=== PATIENT | male | born 1950 | race Caucasian/White ===

== ENCOUNTER → 2016-04-27 | Outpatient (CLI) | payer MEDICARE, BC ==
[2016-04-27 10:15] LABS: ALBUMIN 3.7 GM/DL (3.2-5.2); ALBUMIN/GLOBULIN RATIO 1.09 (1.00-1.93); BILIRUBIN,TOTAL 0.5 MG/DL (0.2-1.0); CALCIUM LEVEL 9.4 MG/DL (8.8-10.2); CREATININE FOR GFR 1.35 MG/DL (0.70-1.30); GLOMERULAR FILTRATION RATE 56.1 (>49); TOTAL PROTEIN 7.1 GM/DL (6.4-8.2)
== END ==
LOC: M WUC 08:09
PROVIDERS: ATTEND Family Medicine
DX: E11.9 Type 2 diabetes mellitus without complications (principal); E78.2 Mixed hyperlipidemia

== ENCOUNTER → 2016-07-07 | Outpatient (CLI) | payer MEDICARE, BC ==
[~2016-07-07] MED LIST: E-Z PAQUE 60% w/v SUSP 355ML BOTTLE As Ordered ONE; E-Z-GAS II EFFERVESCENT PACKET (SODIUM BICARB./CITRIC ACID/SIMETHICONE) As Ordered ONE; E-Z-HD 98% w/w 340GM SUSP BTL As Ordered ONE
--- NOTE | 2016-07-07 15:37 | REP ---
ESOPHAGRAM: The procedure was performed under the direct supervision of Dr. Arellano. The images were reviewed with Dr. Arellano. A single view PA chest x-ray is submitted as a associate material handler film. There is no change compared to a previous chest x-ray performed on 08/25/2013. Liquid barium and gas-producing granules were given in the erect position as well as liquid barium in the prone oblique position in order to perform a double contrast esophagram examination. The oral and pharyngeal stages of deglutition are unremarkable. 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 During esophageal transport there are tertiary waves demonstrated. There is no esophagitis, stricture, mucosal ring or hiatal hernia. Gastroesophageal reflux is not demonstrated on this examination. Note is made of two duodenal diverticula identified. IMPRESSION: 1. 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 2. Esophageal dysmotility. 3. Note is made of two duodenal diverticula. 1 minute and 2 seconds of fluoroscopy time was utilized for this procedure. Reviewed by MAYO Jesus 07/07/2016 03:39 PEdited and Signed by Preet Arellano MD 07/07/2016 06:13 P
== END ==
LOC: M RAD 09:43
PROVIDERS: ATTEND Otolaryngology
DX: K21.9 Gastro-esophageal reflux disease without esophagitis (principal)

== ENCOUNTER → 2016-10-05 | Outpatient (REF) | payer MEDICARE, BC ==
[2016-10-05 20:42] LABS: CALCIUM LEVEL 9.3 MG/DL (8.8-10.2); CREATININE FOR GFR 1.58 MG/DL (0.70-1.30); GLOMERULAR FILTRATION RATE 46.7 (>49); POTASSIUM SERUM 3.5 MEQ/L (3.5-5.1)
== END ==
LOC: M LABWUC 17:16
PROVIDERS: ATTEND Nurse Practitioner Family
DX: I11.9 Hypertensive heart disease without heart failure (principal)

== ENCOUNTER → 2016-10-27 | Outpatient (CLI) | payer MEDICARE, BC ==
[~2016-10-27] MED LIST changes: +ASPI1TAB PO; +AZEL0.1S3; +CELE20TA PO; +CINN500T PO; +CORE12.5 PO; -E-Z PAQUE 60% w/v SUSP 355ML BOTTLE As Ordered ONE; -E-Z-GAS II EFFERVESCENT PACKET (SODIUM BICARB./CITRIC ACID/SIMETHICONE) As Ordered ONE; -E-Z-HD 98% w/w 340GM SUSP BTL As Ordered ONE; +FLON50SP; +GLUC1000 PO; +INDA125TA PO; +INSULANT SC; +LORA10TA2 PO; +LOTE10TA11 PO; +MULT1TAB10 PO; +PRIL20CA9 PO; +PROS5TAB PO
[2016-10-27 09:30] LABS: MEAN CORPUSCULAR HEMOGLOBIN 27.4 pg (27.0-33.0); MEAN CORPUSCULAR HGB CONC 33.5 g/dl (32.0-36.5); RED CELL DISTRIBUTION WIDTH 13.8 % (11.5-14.5); WHITE BLOOD COUNT 6.8 K/mm3 (4.0-10.0)
[2016-10-27 09:42] LABS: ALBUMIN 3.5 GM/DL (3.2-5.2); ALBUMIN/GLOBULIN RATIO 1.06 (1.00-1.93); BILIRUBIN,TOTAL 0.4 MG/DL (0.2-1.0); CALCIUM LEVEL 9.1 MG/DL (8.8-10.2); CREATININE FOR GFR 1.43 MG/DL (0.70-1.30); GLOMERULAR FILTRATION RATE 52.4 (>49); POTASSIUM SERUM 3.7 MEQ/L (3.5-5.1); TOTAL PROTEIN 6.8 GM/DL (6.4-8.2)
== END ==
LOC: M WUC 08:03
PROVIDERS: ATTEND Family Medicine
DX: Z00.00 Encounter for general adult medical examination without abnormal findings (principal); F32.9 Major depressive disorder, single episode, unspecified; I11.9 Hypertensive heart disease without heart failure; E11.9 Type 2 diabetes mellitus without complications
CPT/HCPCS: 36415; 80053; 82043; 83036; 85027; G0103

== ENCOUNTER → 2016-11-11 | Outpatient (REF) | payer MEDICARE, BC ==
[2016-11-11 19:34] LABS: CALCIUM OXALATE CRYSTALS SMALL
== END ==
LOC: M SMT 17:01
PROVIDERS: ATTEND Urology
DX: N20.0 Calculus of kidney (principal)

== ENCOUNTER → 2016-11-16 | Outpatient (CLI) | payer MEDICARE, BC ==
[2016-11-16 18:01] LABS: FERRITIN 14 NG/ML (26-388); PERCENT SATURATION 12.3 % (19.7-37.4); TOTAL IRON BINDING CAPACITY 415 UG/DL (250-450)
[2016-11-16 18:12] LABS: FOLATE > 24.0 NG/ML (>5.4); VITAMIN B12 LEVEL 480 PG/ML (247-911)
[2016-11-16 18:52] LABS: RETIC HEMOGLOBIN CONTENT CHr 29.6 PG (24-36); RETICULOCYTE % 1.9 % (0.5-1.5)
[2016-11-19 00:07] LABS: FREE KAPPA LIGHT CHAINS SERUM 27.6 mg/L (3.3-19.4); FREE LAMBDA LIGHT CHAINS SERUM 16.4 mg/L (5.7-26.3); KAPPA/LAMBDA RATIO SERUM 1.68 (0.26-1.65)
== END ==
LOC: M WUC 10:48
PROVIDERS: ATTEND Family Medicine
DX: D64.9 Anemia, unspecified (principal)
CPT/HCPCS: 36415; 82607; 82728; 82746; 83550; 83883; 85046; G0463

== ENCOUNTER → 2016-11-16 | Outpatient (REF) | payer MEDICARE, BC | LOC: M SFHCPLAZ 10:10 | PROVIDERS: ATTEND Family Medicine | DX: D64.9 Anemia, unspecified (principal); Z53.8 Procedure and treatment not carried out for other reasons ==

== ENCOUNTER 2016-12-06 09:59 | Day surgery (SDC) | payer MEDICARE, BC ==
[~2016-12-06] VITALS: Ht 167.6 cm; Wt 88.0 kg
[~2016-12-06 09:59] MED LIST changes: +ACETAMINOPHEN 325 MG TAB PO PRN; +BSS with VANC/TOB/EPI for EYE CASES IR ONE; +CYCLOPENTOLATE 2% OPHTH SOLN 2ML BTL OD ONE; +HEALON DUET (HEALON 10MG/ML 0.55ML & HEALON ENDOCOAT 30MG/ML 0.85ML) As Ordered ONE; +LIDOCAINE 1% SDV 5 ML VIAL As Ordered ONE; +LIDOCAINE 3.5 % 1ML OPHTH TOPICAL GEL OU ONE; +MIDAZOLAM INJ 2 MG/2 ML VIAL (J2250) As Ordered ONE; +MOXIFLOXACIN IN BSS 0.25MG/0.25ML INTRACAMERAL INJ (OR EYE ONLY)(J2280) As Ordered ONE; +OFLOXACIN 0.3 % (OCUFLOX) OPTH SOL 5ML OD ONE; +PHENYLEPHRINE 2.5% OPHTH SOL 2ML OD ONE; +POVIDONE-IODINE 5% OPHTH PREP SOL 30ML As Ordered ONE; +PROPARACAINE 0.5% OPHTH SOL 15ML OD PRN; +TRIAMCINOLONE PRES FR 40 MG/ML 1ML(TRIESENCE)(OR EYE ONLY)(J3300 PER 1MG) As Ordered ONE; +TROPICAMIDE 1% OPHTH SOLN 2ML OD ONE
[2016-12-06] MEDS ORDERED: D5W/0.2% SODIUM CHLORIDE 250 ML IV ONE (10:15)
[2016-12-06 13:19] VITALS: BP 142/76
[2016-12-06] MEDS ORDERED: KETOROLAC 0.5% OPHTH SOLN OD ONE (13:30)
[2016-12-06] MEDS ORDERED: AcetaZOLAMIDE 500 MG ER CAP PO ONE (13:30)
[2016-12-06] MEDS ORDERED: TRIMETHOBENZAMIDE 300 MG CAP PO PRN (13:30)
[2016-12-06] MEDS ORDERED: fentaNYL 100 MCG/2 ML INJECTION (J3010) As Ordered ONE (13:34)
== END 2016-12-06 13:35 | disposition home or self-care (01) ==
LOC: M SDC 09:59
PROVIDERS: ATTEND Ophthalmology
DX: H26.9 Unspecified cataract (principal); H40.9 Unspecified glaucoma; I13.2 Hypertensive heart and chronic kidney disease with heart failure and with stage 5 chronic kidney disease, or end stage renal disease; R01.1 Cardiac murmur, unspecified; E11.22 Type 2 diabetes mellitus with diabetic chronic kidney disease; E78.2 Mixed hyperlipidemia; N40.0 Benign prostatic hyperplasia without lower urinary tract symptoms; J30.9 Allergic rhinitis, unspecified; F32.9 Major depressive disorder, single episode, unspecified; G47.33 Obstructive sleep apnea (adult) (pediatric); E88.81 Metabolic syndrome and other insulin resistance; R97.20 Elevated prostate specific antigen [PSA]; D64.9 Anemia, unspecified; N18.3 Chronic kidney disease, stage 3 (moderate); I35.1 Nonrheumatic aortic (valve) insufficiency; K21.9 Gastro-esophageal reflux disease without esophagitis; M12.9 Arthropathy, unspecified; M54.9 Dorsalgia, unspecified; R06.83 Snoring; Z88.1 Allergy status to other antibiotic agents; Z88.8 Allergy status to other drugs, medicaments and biological substances; Z79.899 Other long term (current) drug therapy; Z79.82 Long term (current) use of aspirin; Z79.4 Long term (current) use of insulin; Z79.84 Long term (current) use of oral hypoglycemic drugs; Z87.442 Personal history of urinary calculi; Z85.828 Personal history of other malignant neoplasm of skin; Z87.891 Personal history of nicotine dependence
CPT/HCPCS: 66984; J2250; J2280; J3010; J3300; V2632

== ENCOUNTER 2016-12-20 13:00 | Outpatient (CLI) | payer MEDICARE, BC ==
[~2016-12-20] VITALS: Ht 170.2 cm; Wt 84.8 kg
[~2016-12-20 13:00] MED LIST changes: -ACETAMINOPHEN 325 MG TAB PO PRN; -BSS with VANC/TOB/EPI for EYE CASES IR ONE; -CYCLOPENTOLATE 2% OPHTH SOLN 2ML BTL OD ONE; -HEALON DUET (HEALON 10MG/ML 0.55ML & HEALON ENDOCOAT 30MG/ML 0.85ML) As Ordered ONE; -LIDOCAINE 1% SDV 5 ML VIAL As Ordered ONE; -LIDOCAINE 3.5 % 1ML OPHTH TOPICAL GEL OU ONE; -MIDAZOLAM INJ 2 MG/2 ML VIAL (J2250) As Ordered ONE; -MOXIFLOXACIN IN BSS 0.25MG/0.25ML INTRACAMERAL INJ (OR EYE ONLY)(J2280) As Ordered ONE; -OFLOXACIN 0.3 % (OCUFLOX) OPTH SOL 5ML OD ONE; -PHENYLEPHRINE 2.5% OPHTH SOL 2ML OD ONE; -POVIDONE-IODINE 5% OPHTH PREP SOL 30ML As Ordered ONE; -PROPARACAINE 0.5% OPHTH SOL 15ML OD PRN; -TRIAMCINOLONE PRES FR 40 MG/ML 1ML(TRIESENCE)(OR EYE ONLY)(J3300 PER 1MG) As Ordered ONE; -TROPICAMIDE 1% OPHTH SOLN 2ML OD ONE
[2016-12-20] MEDS ORDERED: NS 1,000 ML IV ONE (13:30)
[2016-12-20] MEDS ORDERED: LIDOCAINE 2% INJ 100 MG/5 ML SDV (FOR ANES.) As Ordered ONE (13:50)
[2016-12-20] MEDS ORDERED: PROPOFOL 200 MG/20 ML VIAL As Ordered ONE (13:50)
--- NOTE | 2016-12-20 14:36 | ROOR ---
Patient Name: Giles Cai Procedure Date: 12/20/2016 2:18 PM Date of : 1950 Age: 66 Room: [facility] Gender: Male Note Status: Finalized Procedure: Upper GI endoscopy Indications: Epigastric abdominal pain, Iron deficiency anemia, Weight loss Providers: Jayson Mcdermott MD Referring MD: Vincent Chan MD Requesting Provider: Medicines: Monitored Anesthesia Care Complications: No immediate complications. Procedure: Pre-Anesthesia Assessment: - The heart rate, respiratory rate, oxygen saturations, blood pressure, adequacy of pulmonary ventilation, and response to care were monitored throughout the procedure. The Endoscope was introduced through the mouth, and advanced to the second part of duodenum. The upper GI endoscopy was accomplished without difficulty. The patient tolerated the procedure well. Findings: The Z-line was regular and was found 40 cm from the incisors. A small hiatal hernia was present. A large amount of food (residue) was found in the entire examined stomach. Food (residue) was found in the first portion of the duodenum. The exam was otherwise without abnormality. Impression: - Z-line regular, 40 cm from the incisors. - Small hiatal hernia. - A large amount of food (residue) in the stomach. - Retained food in the duodenum. - The examination was otherwise normal. - No specimens collected. - The examination was otherwise normal. Recommendation: - Patient has a contact number available for emergencies. The signs and symptoms of potential delayed complications were discussed with the patient. Return to normal activities tomorrow. Written discharge instructions were provided to the patient. - Resume previous diet. - Discharge patient to home. - Follow an antireflux regimen. - Continue present medications. - Return to referring physician. - The findings and recommendations were discussed with the patient's family. Jayson Mcdermott MD Jayson Mcdermott MD 12/20/2016 2:35:40 PM This report has been signed electronically. Number of Addenda: 0 Note Initiated On: 12/20/2016 2:18 PM Estimated Blood Loss: Estimated blood loss: none.
[2016-12-20 14:55] VITALS: BP 156/77
== END 2016-12-20 15:15 | disposition home or self-care (01) ==
LOC: M OPP 13:00
PROVIDERS: ATTEND Internal Medicine Gastroenterology
DX: R10.13 Epigastric pain (principal); D50.9 Iron deficiency anemia, unspecified; R63.4 Abnormal weight loss; K44.9 Diaphragmatic hernia without obstruction or gangrene; I71.4 Abdominal aortic aneurysm, without rupture; I10 Essential (primary) hypertension; E78.5 Hyperlipidemia, unspecified; R01.1 Cardiac murmur, unspecified; E10.9 Type 1 diabetes mellitus without complications; R12 Heartburn; M19.90 Unspecified osteoarthritis, unspecified site; M51.9 Unspecified thoracic, thoracolumbar and lumbosacral intervertebral disc disorder; F32.9 Major depressive disorder, single episode, unspecified; G47.30 Sleep apnea, unspecified; Z96.7 Presence of other bone and tendon implants; Z87.442 Personal history of urinary calculi; Z87.891 Personal history of nicotine dependence; Z88.8 Allergy status to other drugs, medicaments and biological substances; Z79.82 Long term (current) use of aspirin; Z79.899 Other long term (current) drug therapy; Z80.8 Family history of malignant neoplasm of other organs or systems

== ENCOUNTER → 2016-12-25 | Outpatient (CLI) | payer MEDICARE, BC ==
[2016-12-25 19:04] LABS: MEAN CORPUSCULAR HGB CONC 33.3 g/dl (32.0-36.5); MEAN CORPUSCULAR VOLUME 84.1 fl (80.0-96.0); RED CELL DISTRIBUTION WIDTH 15.5 % (11.5-14.5); RETIC HEMOGLOBIN CONTENT CHr 30.6 PG (24-36); RETICULOCYTE % 2.3 % (0.5-1.5); WHITE BLOOD COUNT 5.2 K/mm3 (4.0-10.0)
[2016-12-25 20:04] LABS: FERRITIN 18 NG/ML (26-388); PERCENT SATURATION 24.2 % (19.7-50.0); TOTAL IRON BINDING CAPACITY 425 UG/DL (250-450); TOTAL PROTEIN 6.7 GM/DL (6.4-8.2)
[2016-12-28 11:20] LABS: ALBUMIN 3.97 GM/DL (3.29-5.55); ALBUMIN % 59.2 % (55.8-66.1); GAMMA GLOBULIN % 11.6 % (11.1-18.8)
[2016-12-31 00:06] LABS: FREE KAPPA LIGHT CHAINS SERUM 24.6 mg/L (3.3-19.4); FREE LAMBDA LIGHT CHAINS SERUM 15.7 mg/L (5.7-26.3); KAPPA/LAMBDA RATIO SERUM 1.57 (0.26-1.65)
== END ==
LOC: M WUC 08:03
PROVIDERS: ATTEND Family Medicine
DX: D50.8 Other iron deficiency anemias (principal); D89.2 Hypergammaglobulinemia, unspecified

== ENCOUNTER → 2017-01-06 | Outpatient (CLI) | payer MEDICARE, BC ==
--- NOTE | 2017-01-06 11:24 | REP ---
GASTRIC EMPTYING STUDY: 01/06/2017. CLINICAL HISTORY: Gastroparesis. Recent endoscopy with food residue in the stomach after 8.5 hour fast. Type 2 diabetes. TECHNIQUE: The patient received 1.1 mCi technetium 99m sulfur colloid in two scrambled eggs with 6 ounces of water. Anterior and posterior sequential 2-minute images for 90 minutes were performed. Region of interest drawn around the stomach and gastric emptying calculated by a semi-automated method. FINDINGS: The anterior and posterior images show no evidence of gastroesophageal reflux. Activity is seen extending into the duodenum and jejunum during the course of the examination. There is some washout of activity from the stomach demonstrated. The gastric emptying at 90 minutes is 52%. The normal t-1/2 for emptying is 90 minutes. No other finding. IMPRESSION: 1. Normal gastric emptying with 52% emptying at 90 minutes, which is normal. Signed by Kali Bhagat MD 01/06/2017 02:58 P
== END ==
LOC: M RAD 09:04
PROVIDERS: ATTEND Family Medicine
DX: K31.84 Gastroparesis (principal)
CPT/HCPCS: 78264; A9541

== ENCOUNTER → 2017-04-01 | Outpatient (CLI) | payer MEDICARE, BC ==
[2017-04-01 08:59] LABS: MEAN CORPUSCULAR HGB CONC 33.9 g/dl (32.0-36.5); MEAN CORPUSCULAR VOLUME 85.5 fl (80.0-96.0); PLATELET COUNT, AUTOMATED 245 10^3/uL (150-450); RED CELL DISTRIBUTION WIDTH 13.6 % (11.5-14.5); RETIC HEMOGLOBIN EQUIVALENT 32.5 pg (24-36); RETICULOCYTE % 1.4 % (0.5-1.5); WHITE BLOOD COUNT 5.8 10^3/uL (4.0-10.0)
[2017-04-01 09:23] LABS: ALBUMIN 3.7 GM/DL (3.2-5.2); ALBUMIN/GLOBULIN RATIO 1.19 (1.00-1.93); BILIRUBIN,TOTAL 0.5 MG/DL (0.2-1.0); CALCIUM LEVEL 9.2 MG/DL (8.8-10.2); CREATININE FOR GFR 1.55 MG/DL (0.70-1.30); GLOMERULAR FILTRATION RATE 47.7 (>49); POTASSIUM SERUM 3.7 MEQ/L (3.5-5.1); TOTAL PROTEIN 6.8 GM/DL (6.4-8.2)
== END ==
LOC: M WUC 08:04
PROVIDERS: ATTEND Family Medicine
DX: D50.8 Other iron deficiency anemias (principal); E11.43 Type 2 diabetes mellitus with diabetic autonomic (poly)neuropathy

== ENCOUNTER → 2017-06-15 | Outpatient (CLI) | payer MEDICARE, BC | LOC: M WUC 09:32 | DX: M25.531 Pain in right wrist (principal) | CPT/HCPCS: 73110 ==

== ENCOUNTER → 2017-07-20 | Outpatient (CLI) | payer MEDICARE, BC ==
[2017-07-20 10:49] LABS: IONIZED CALCIUM 4.7 MG/DL (4.5-5.3)
[2017-07-20 11:20] LABS: MAGNESIUM LEVEL 1.7 MG/DL (1.8-2.4)
== END ==
LOC: M WUC 10:01
DX: Z48.02 Encounter for removal of sutures (principal)
CPT/HCPCS: 83735

== ENCOUNTER → 2017-09-07 | Outpatient (REF) | payer MEDICARE, BC | LOC: M SFHCLERA 20:21 | DX: L73.9 Follicular disorder, unspecified (principal) | CPT/HCPCS: 87070; 87077; 87186 ==

== ENCOUNTER → 2017-09-14 | Outpatient (CLI) | payer MEDICARE, BC ==
[2017-09-14 12:32] LABS: PLATELET COUNT, AUTOMATED 242 10^3/uL (150-450)
[2017-09-14 12:36] LABS: INR 0.94; PROTHROMBIN TIME 12.6 SECONDS (12.4-14.5)
[2017-09-14 12:37] LABS: PARTIAL THROMBOPLASTIN TIME 29.9 SECONDS (26.8-37.9)
== END ==
LOC: M WUC 08:32
DX: Z01.812 Encounter for preprocedural laboratory examination (principal); Z79.01 Long term (current) use of anticoagulants
CPT/HCPCS: 85049

== ENCOUNTER → 2017-10-03 | Outpatient (CLI) | payer MEDICARE, BC ==
[2017-10-03 10:41] LABS: HEMATOCRIT 38.5 % (42.0-52.0); HEMOGLOBIN 13.1 g/dl (13.5-17.5); MEAN CORPUSCULAR HEMOGLOBIN 29.2 pg (27.0-33.0); MEAN CORPUSCULAR VOLUME 85.9 fl (80.0-96.0); PLATELET COUNT, AUTOMATED 247 10^3/uL (150-450); RED BLOOD COUNT 4.48 10^6/uL (4.30-6.10); RED CELL DISTRIBUTION WIDTH 13.2 % (11.5-14.5); WHITE BLOOD COUNT 6.6 10^3/uL (4.0-10.0)
[2017-10-03 10:52] LABS: PROTHROMBIN TIME 13.3 SECONDS (12.4-14.5)
[2017-10-03 11:07] LABS: ALBUMIN 3.6 GM/DL (3.2-5.2); ALBUMIN/GLOBULIN RATIO 1.24 (1.00-1.93); ALKALINE PHOSPHATASE 71 U/L (45-117); ALT/SGPT 29 U/L (12-78); ANION GAP 6 MEQ/L (8-16); AST/SGOT 17 U/L (7-37); BILIRUBIN,TOTAL 0.5 MG/DL (0.2-1.0); BLOOD UREA NITROGEN 26 MG/DL (7-18); CALCIUM LEVEL 8.9 MG/DL (8.8-10.2); CARBON DIOXIDE LEVEL 29 MEQ/L (21-32); CHLORIDE LEVEL 105 MEQ/L (98-107); CREATININE FOR GFR 1.45 MG/DL (0.70-1.30); GLOMERULAR FILTRATION RATE 51.4 (>49); GLUCOSE, FASTING 133 MG/DL (70-100); POTASSIUM SERUM 4.1 MEQ/L (3.5-5.1); SODIUM LEVEL 140 MEQ/L (136-145); TOTAL PROTEIN 6.5 GM/DL (6.4-8.2)
[2017-10-03 11:18] LABS: ERYTHROCYTE SEDIMENTATION RATE 17 mm/hr (0-20)
== END ==
LOC: M ADMPAT 09:16
DX: M17.11 Unilateral primary osteoarthritis, right knee (principal); Z01.818 Encounter for other preprocedural examination
CPT/HCPCS: 71046

== ENCOUNTER 2017-10-25 11:13 | Inpatient (IN) | payer MEDICARE, BC ==
[2017-10-25] MEDS: CitaloPRAM (CeleXA) 20 MG TAB PO (09:00)
[2017-10-25] MEDS ORDERED: LIDOCAINE 1% MDV 20ML VIAL SQ (11:30)
[2017-10-25] MEDS: LR 1,000 ML IV ×3 (12:19→18:34)
[2017-10-25] MEDS: ACETAMINOPHEN 500 MG TAB PO (12:19)
[2017-10-25 12:23] LABS: GLUCOSE, FASTING 159 MG/DL (70-100)
[2017-10-25 12:31] LABS: BEDSIDE GLUCOSE 149 MG/DL (80-115)
[2017-10-25] MEDS ORDERED: ceFAZolin 1GM INJ (J0690 PER 500MG) As Ordered (12:49)
[2017-10-25] MEDS ORDERED: fentaNYL 100 MCG/2 ML INJECTION (J3010) As Ordered ×2 (13:29→15:09)
[2017-10-25] MEDS ORDERED: MIDAZOLAM INJ 2 MG/2 ML VIAL (J2250) As Ordered ×2 (13:29→15:09)
[2017-10-25] MEDS: fentaNYL 100 MCG/2 ML INJECTION (J3010) IV (13:57)
[2017-10-25] MEDS: MIDAZOLAM INJ 2 MG/2 ML VIAL (J2250) IV (13:58)
[2017-10-25] MEDS ORDERED: dexameTHASONE 10 MG/1 ML VIAL PRES.FREE (J1100) (15:09)
[2017-10-25] MEDS ORDERED: PROPOFOL 200 MG/20 ML VIAL As Ordered ×3 (15:09→16:50)
[2017-10-25] MEDS ORDERED: ROPIvacaine 0.5% 30 ML INJECTION (J2795 PER 1MG) (15:09)
[2017-10-25] MEDS ORDERED: LIDOCAINE 1% MDV 20ML VIAL (15:09)
[2017-10-25] MEDS ORDERED: BUPIVACAINE/DEXTROSE 0.75% 2 ML AMP As Ordered (15:09)
[2017-10-25] MEDS: TRANEXAMIC ACID 100 MG/ML 10ML VIAL As Ordered (15:55)
[2017-10-25] MEDS: EPINEPHrine INJ 1 MG/ML 1ML AMP As Ordered (15:55)
[2017-10-25] MEDS ORDERED: hydrALAZINE INJ 20 MG/ML VIAL As Ordered (16:16)
[2017-10-25] MEDS ORDERED: LABETALOL HCL 100 MG/20 ML VIAL As Ordered (16:23)
[2017-10-25] MEDS: BUPIVACAINE LIPOSOME/PF 1.3% 20 ML VIAL (13.3MG/ML)(EXPAREL) As Ordered (16:23)
[2017-10-25] MEDS: BUPIVACAINE HCL 0.25% 10 ML VIAL As Ordered (16:23)
[2017-10-25] MEDS ORDERED: MORPHINE 1MG/ML IN 0.9% NACL 100ML IV BAG As Ordered ×2 (17:08→17:10)
[2017-10-25 17:21] LABS: BEDSIDE GLUCOSE 138 MG/DL (80-115)
[2017-10-25] MEDS ORDERED: fentaNYL 100 MCG/2 ML INJECTION (J3010) IV (17:30)
[2017-10-25] MEDS ORDERED: ACETAMINOPHEN TAB 650MG DOSE (2X325MG) PO (17:30)
[2017-10-25] MEDS ORDERED: HYDROMORPHONE HCL 0.5 MG/ 0.5 ML SYRINGE (J1170 PER 1) IV (17:30)
[2017-10-25] MEDS ORDERED: PERCOCET 5MG/325MG TAB PO (17:30)
[2017-10-25] MEDS ORDERED: FLEET ENEMA PR (17:30)
[2017-10-25] MEDS ORDERED: ONDANSETRON 4MG/2ML VIAL (J2405) IV ×2 (17:30→18:00)
[2017-10-25] MEDS ORDERED: MORPHINE 1MG/ML IN 0.9% NACL 100ML IV BAG IV (18:00)
[2017-10-25] MEDS ORDERED: NALOXONE INJ 0.4 MG/1 ML VIAL (J2310) IV (18:00)
[2017-10-25] MEDS ORDERED: EPIDURAL/PCA KEYS XX (18:00)
[2017-10-25] MEDS ORDERED: NALBUPHINE HCL 10 MG/ML AMP (J2300) IV (18:00)
[2017-10-25 19:56] LABS: BEDSIDE GLUCOSE 189 MG/DL (80-115)
[2017-10-25] MEDS: LEVEMIR (INSULIN DETEMIR) 1 UNITS/0.01ML SC (20:42)
[2017-10-25] MEDS: BENAZEPRIL 20 MG TAB PO (20:43)
[2017-10-25] MEDS: CARVedilol 12.5 MG TAB PO (20:43)
[2017-10-25] MEDS: diphenhydrAMINE INJ 50MG/ML VIAL (J1200) IV (22:21)
[2017-10-26] MEDS ORDERED: PERCOCET 5MG/325MG TAB PO (06:30)
[2017-10-26] MEDS ORDERED: ONDANSETRON 4 MG TAB (S0181) PO (06:30)
[2017-10-26 07:23] LABS: HEMATOCRIT 40.9 % (42.0-52.0); HEMOGLOBIN 13.8 g/dl (13.5-17.5); MEAN CORPUSCULAR HEMOGLOBIN 29.1 pg (27.0-33.0); MEAN CORPUSCULAR HGB CONC 33.7 g/dl (32.0-36.5); MEAN CORPUSCULAR VOLUME 86.3 fl (80.0-96.0); PLATELET COUNT, AUTOMATED 280 10^3/uL (150-450); RED BLOOD COUNT 4.74 10^6/uL (4.30-6.10); RED CELL DISTRIBUTION WIDTH 13.2 % (11.5-14.5); WHITE BLOOD COUNT 10.9 10^3/uL (4.0-10.0)
[2017-10-26 07:41] LABS: ANION GAP 10 MEQ/L (8-16); BLOOD UREA NITROGEN 24 MG/DL (7-18); CALCIUM LEVEL 8.9 MG/DL (8.8-10.2); CARBON DIOXIDE LEVEL 30 MEQ/L (21-32); CHLORIDE LEVEL 98 MEQ/L (98-107); CREATININE FOR GFR 1.53 MG/DL (0.70-1.30); GLOMERULAR FILTRATION RATE 48.3 (>49); GLUCOSE, FASTING 149 MG/DL (70-100); POTASSIUM SERUM 3.4 MEQ/L (3.5-5.1); SODIUM LEVEL 138 MEQ/L (136-145)
[2017-10-26] MEDS: FINASTERIDE 5 MG TAB PO (09:18)
[2017-10-26] MEDS: diphenhydrAMINE 25 MG CAP PO (09:18)
[2017-10-26] MEDS: CARVedilol 12.5 MG TAB PO (09:18)
[2017-10-26] MEDS: OMEPRAZOLE 20 MG CAP PO (09:18)
[2017-10-26] MEDS: metFORMIN (GLUCOPHAGE) 500 MG TAB PO (09:18)
[2017-10-26] MEDS: TERAZOSIN 5 MG CAP PO (09:19)
[2017-10-26] MEDS: SENOKOT S TAB PO (09:19)
[2017-10-26] MEDS: LORATADINE 10 MG TAB PO (09:19)
[2017-10-26] MEDS: MIRALAX *UNIT DOSE* 17GM PACKET PO (09:20)
[2017-10-26] MEDS: MOM 30ML SUSPENSION UDC PO (09:20)
[2017-10-26] MEDS: BENAZEPRIL 20 MG TAB PO (09:20)
[2017-10-26] MEDS: CitaloPRAM (CeleXA) 20 MG TAB PO (09:20)
[2017-10-26] MEDS: FLUTICASONE PROP 0.05% NASAL SPRAY 16 GM (FLONASE) (09:20)
[2017-10-26] MEDS: PERCOCET 5MG/325MG TAB PO (09:26)
[2017-10-26] MEDS ORDERED: PILL CRUSHER/CUTTER 1 EACH XX (09:30)
[2017-10-26] MEDS ORDERED: RIVAROXABAN 10 MG TAB (XARELTO) PO (18:00)
[2017-10-26] MEDS ORDERED: LEVEMIR (INSULIN DETEMIR) 1 UNITS/0.01ML SC (21:00)
== END 2017-10-26 10:45 | disposition home or self-care (01) | DRG 470 ==
LOC: M OR 11:13 → M MS5PR 17:55
PROVIDERS: Orthopaedic Surgery
PROC: 0SRC0J9 Replacement of Right Knee Joint with Synthetic Substitute, Cemented, Open Approach (ICD-10-PCS; principal; 2017-10-25 15:08)
DX: M17.11 Unilateral primary osteoarthritis, right knee (principal); Z79.82 Long term (current) use of aspirin; Z79.899 Other long term (current) drug therapy; E11.9 Type 2 diabetes mellitus without complications; I12.9 Hypertensive chronic kidney disease with stage 1 through stage 4 chronic kidney disease, or unspecified chronic kidney disease; E78.00 Pure hypercholesterolemia, unspecified; Z87.891 Personal history of nicotine dependence; N18.3 Chronic kidney disease, stage 3 (moderate); G47.33 Obstructive sleep apnea (adult) (pediatric)

== ENCOUNTER → 2018-01-23 | Outpatient (CLI) | payer MEDICARE, BC ==
[2018-01-23 09:54] LABS: ANION GAP 9 MEQ/L (8-16); AST/SGOT 12 U/L (7-37); BLOOD UREA NITROGEN 23 MG/DL (7-18); CALCIUM LEVEL 9.2 MG/DL (8.8-10.2); CARBON DIOXIDE LEVEL 30 MEQ/L (21-32); CHLORIDE LEVEL 104 MEQ/L (98-107); CREATININE FOR GFR 1.29 MG/DL (0.70-1.30); GLOMERULAR FILTRATION RATE 58.8 (>49); GLUCOSE, FASTING 122 MG/DL (70-100); HEMATOCRIT 38.1 % (42.0-52.0); HEMOGLOBIN 12.8 g/dl (13.5-17.5); MEAN CORPUSCULAR HEMOGLOBIN 28.8 pg (27.0-33.0); MEAN CORPUSCULAR HGB CONC 33.6 g/dl (32.0-36.5); MEAN CORPUSCULAR VOLUME 85.6 fl (80.0-96.0); PLATELET COUNT, AUTOMATED 235 10^3/uL (150-450); RED BLOOD COUNT 4.45 10^6/uL (4.30-6.10); RED CELL DISTRIBUTION WIDTH 13.8 % (11.5-14.5); SODIUM LEVEL 143 MEQ/L (136-145); WHITE BLOOD COUNT 6.1 10^3/uL (4.0-10.0)
[2018-01-23 09:55] LABS: ALBUMIN 3.5 GM/DL (3.2-5.2); ALBUMIN/GLOBULIN RATIO 1.21 (1.00-1.93); ALKALINE PHOSPHATASE 75 U/L (45-117); ALT/SGPT 23 U/L (12-78); BILIRUBIN,TOTAL 0.5 MG/DL (0.2-1.0); CHOLESTEROL LEVEL 263 MG/DL (<200); CHOLESTEROL RISK RATIO 5.367 (<5); HDL CHOLESTEROL 49 MG/DL (>40); LDL CHOLESTEROL 173 MG/DL (<100); NON-HDL-C 214 MG/DL; TOTAL PROTEIN 6.4 GM/DL (6.4-8.2); TRIGLYCERIDES LEVEL 203 MG/DL (<150)
[2018-01-23 10:08] LABS: ESTIMATED AVERAGE GLUCOSE 174 MG/DL (60-110); HEMOGLOBIN A1c 7.7 %
[2018-01-23 10:12] LABS: MAU/CREAT RATIO 81.1 MCG/MG (0.0-30.0)
== END ==
LOC: M WUC 08:05
DX: D50.8 Other iron deficiency anemias (principal); E11.9 Type 2 diabetes mellitus without complications; I10 Essential (primary) hypertension; Z79.899 Other long term (current) drug therapy
CPT/HCPCS: 80053

== ENCOUNTER → 2018-02-16 | Outpatient (CLI) | payer MEDICARE, BC | LOC: M SLEEP 19:32 | DX: G47.33 Obstructive sleep apnea (adult) (pediatric) (principal) | CPT/HCPCS: 95811 ==

== ENCOUNTER → 2018-02-23 | Outpatient (CLI) | payer MEDICARE, BC | LOC: M RAD 11:36 | DX: M79.89 Other specified soft tissue disorders (principal); Z79.899 Other long term (current) drug therapy | CPT/HCPCS: 93971 ==

== ENCOUNTER → 2018-02-23 | Outpatient (CLI) | payer MEDICARE, BC ==
[2018-02-23 19:57] LABS: FREE T4 0.75 NG/DL (0.76-1.46)
== END ==
LOC: M WUC 14:04
DX: R61 Generalized hyperhidrosis (principal)
CPT/HCPCS: 84443

== ENCOUNTER → 2018-08-21 | Outpatient (CLI) | payer MEDICARE, BC ==
[~2018-08-21] MED LIST changes: -ASPI1TAB PO; +ASPI81TA26 PO; +INDO25CA PO; +LORA-243 PO; -LORA10TA2 PO; -LOTE10TA11 PO; +LOTE10TA13 PO; +PERC5TAB12 PO; +TERA5CAP3 PO; +XARE10TA PO
[2018-08-21 09:02] LABS: HEMATOCRIT 40.5 % (42.0-52.0); HEMOGLOBIN 13.6 g/dl (13.5-17.5); MEAN CORPUSCULAR HEMOGLOBIN 29.9 pg (27.0-33.0); MEAN CORPUSCULAR HGB CONC 33.6 g/dl (32.0-36.5); PLATELET COUNT, AUTOMATED 225 10^3/uL (150-450); RED BLOOD COUNT 4.55 10^6/uL (4.30-6.10); WHITE BLOOD COUNT 6.2 10^3/uL (4.0-10.0)
[2018-08-21 09:38] LABS: ALBUMIN 3.7 GM/DL (3.2-5.2); BILIRUBIN,TOTAL 0.4 MG/DL (0.2-1.0); CHOLESTEROL RISK RATIO 5.509 (<5); CREATININE FOR GFR 1.4 MG/DL (0.70-1.30); GLOMERULAR FILTRATION RATE 53.3 (>42); POTASSIUM SERUM 3.7 MEQ/L (3.5-5.1); PROSTATIC SPECIFIC AG MONITOR 13.7 NG/ML (< 4.00); TOTAL PROTEIN 6.6 GM/DL (6.4-8.2)
[2018-08-21 10:32] LABS: HEMOGLOBIN A1c 7.5 %
== END ==
LOC: M WUC 08:03
PROVIDERS: ATTEND Family Medicine
DX: N18.3 Chronic kidney disease, stage 3 (moderate) (principal); E11.9 Type 2 diabetes mellitus without complications; D50.8 Other iron deficiency anemias; E78.2 Mixed hyperlipidemia; R97.20 Elevated prostate specific antigen [PSA]

== ENCOUNTER → 2018-08-30 | Outpatient (REF) | payer MEDICARE, BC ==
[2018-08-30 14:27] LABS: AMORPHOUS SEDIMENT SMALL (NEGATIVE); APPEARANCE, URINE TURBID (CLEAR); BACTERIA, URINE AUTO NEGATIVE (NEGATIVE); BILIRUBIN, URINE AUTO NEGATIVE (NEGATIVE); BLOOD, URINE BLOOD NEGATIVE (NEGATIVE); COLOR, URINE AMBER (YELLOW); GLUCOSE, URINE (UA) AUTO NEGATIVE (NEGATIVE); KETONE, URINE AUTO NEGATIVE (NEGATIVE); LEUKOCYTE ESTERASE, URINE AUTO NEGATIVE (NEGATIVE); NITRITE, URINE AUTO NEGATIVE (NEGATIVE); PROTEIN, URINE AUTO NEGATIVE (NEGATIVE); RBC, URINE AUTO 0 /HPF (0-3); SPECIFIC GRAVITY URINE AUTO 1.021 (1.002-1.035); SQUAMOUS EPITHELIAL CELL UR AU 0 /HPF (0-6); UROBILINOGEN, URINE AUTO 0.2 mg/dL (0.0-2.0); WBC, URINE AUTO 2 /HPF (0-3)
== END ==
LOC: M SMT 13:04
PROVIDERS: ATTEND Nurse Practitioner Women's Health
DX: R97.20 Elevated prostate specific antigen [PSA] (principal)
CPT/HCPCS: 81001; 87086; G0463

== ENCOUNTER → 2018-08-30 | Outpatient (CLI) | payer MEDICARE, BC | LOC: M SMT 08:32 | PROVIDERS: ATTEND Nurse Practitioner Women's Health | DX: R97.20 Elevated prostate specific antigen [PSA] (principal) ==

== ENCOUNTER → 2018-09-14 | Outpatient (CLI) | payer MEDICARE, BC ==
[2018-09-14 13:31] LABS: CALCIUM LEVEL 9.9 MG/DL (8.8-10.2); CREATININE FOR GFR 1.48 MG/DL (0.70-1.30)
== END ==
LOC: M WUC 08:32
PROVIDERS: ATTEND Nurse Practitioner Women's Health
DX: R97.20 Elevated prostate specific antigen [PSA] (principal)

== ENCOUNTER → 2018-09-19 | Outpatient (CLI) | payer MEDICARE, BC ==
[~2018-09-19] MED LIST changes: +PROHANCE 279.3MG/ML 5ML VIAL (A9576) As Ordered ONE
--- NOTE | 2018-09-19 14:17 | REP ---
MULTIPARAMETRIC PROSTATE MRI STUDY WITH AND WITHOUT IV GADOLINIUM: HISTORY: Elevated PSA. TECHNIQUE: Using a phased array surface coil, small field of view imaging was acquired using T2-weighted scans in the axial, coronal, and sagittal imaging planes. Small field of view diffusion-weighted sequences are acquired. Small field of view axial T1-weighted scans are acquired dynamically after the intravenous administration of 8 mL of ProHance. Using a large field of view, the entire pelvis to the level of the aortic bifurcation was imaged using precontrast axial T1 and postcontrast axial T1 fat-saturation images. The visualized osseous structures of the pelvis demonstrate no evidence of suspicious bone lesion. There is no adenopathy in the pelvis. Seminal vesicles appear fairly symmetrical and unremarkable. Prostate measures 5.4 x 4.2 x 4.1 cm for a total volume of 47.08 mL. Three regions of interest are identified in the prostate for MR ultrasound fusion-guided biopsy. First in the right mid anterolateral peripheral zone and mid posterior transitional zone, there is an area which is predominantly low signal on T2-weighted and DWI images. There are areas of type 3 enhancement internally. The area measures 1.0 x 0.5 x 1.0 cm for a total volume of 1.05 mL. Overall level of suspicion is 3/0 with clinically significant cancer equivocal. Next, in the mid anterior stroma, bilateral mid anterior transitional zone and bilateral apical anterior transitional zone, there is an oval area of somewhat ill-defined T2 decreased signal, also decreased signal on DWI images. There is predominantly type 2 enhancement within this region. The area measures 2.9 x 1.3 x 2.1 cm for a total volume of 4.67 mL. Overall level of suspicion is 4/5 with clinically significant cancer likely to be present. Finally, in the left base anterolateral and posterior peripheral zone as well as transitional zone, and in the left mid posterior peripheral zone, there is an area, which is predominantly low signal on T2 and DWI images. There are areas of type 1 and type 2 enhancement within this region. The area measures 3.2 x 1.4 x 2.8 cm for a total volume of 5.35 mL. Overall level of suspicion is 3/5 with clinically significant cancer equivocal. IMPRESSION: There are three regions of interest identified in the prostate for MR ultrasound fusion-guided prostate biopsy. Electronically Signed by Craig Mathew MD 09/19/2018 04:17 P
== END ==
LOC: M RAD 10:03
PROVIDERS: ATTEND Nurse Practitioner Women's Health
DX: R97.20 Elevated prostate specific antigen [PSA] (principal)
CPT/HCPCS: 72197; A9576

== ENCOUNTER → 2018-10-03 | Outpatient (CLI) | payer MEDICARE, BC ==
[~2018-10-03] MED LIST changes: -PROHANCE 279.3MG/ML 5ML VIAL (A9576) As Ordered ONE
--- NOTE | 2018-10-03 16:33 | REP ---
Prostate sonography: History: Elevated PSA. Positive prostate MRI study. Sonographic findings: Transrectal sonographic guidance is provided to Dr. Plascencia who performed trans rectal ultrasound guided needle biopsy procedure . Electronically Signed by Preet Arellano MD 10/03/2018 04:24 P
== END ==
LOC: M SMT PRO 08:42
PROVIDERS: ATTEND Urology
DX: C61 Malignant neoplasm of prostate (principal)
CPT/HCPCS: 55700; 76942; G0416

== ENCOUNTER → 2018-10-11 | Outpatient (CLI) | payer MEDICARE, BC ==
--- NOTE | 2018-10-11 17:27 | REP ---
REASON: History of carcinoma of the prostate gland. COMPARISON: None. After the intravenous administration of 21.9 millicuries of technetium 99M MDP, A total body bone scan was obtained. There is a focus of increased radionuclide accumulation seen in the region of the acromioclavicular joint of the left shoulder. Increased radionuclide accumulation is seen in the wrists, knees, and feet. There is a photopenic defect seen in the right knee consistent with previous prosthesis placement. Degenerative type uptake is seen in the L1 region and T9 region. IMPRESSION:Degenerative type uptake patterns as described above. Plain film correlation of the degenerative type uptake seen in the spine is recommended. There is no compelling evidence for metastatic disease. Electronically Signed by Dieter Hagen DO 10/12/2018 12:24 P
== END ==
LOC: M RAD 09:43
PROVIDERS: ATTEND Urology
DX: C61 Malignant neoplasm of prostate (principal)
CPT/HCPCS: 78306; A9503

== ENCOUNTER → 2018-10-31 | Outpatient (CLI) | payer MEDICARE, BC ==
--- NOTE | 2018-11-01 11:52 | RADONC ---
RADIATION ONCOLOGY CONSULTATION NOTE DATE: 10/31/2018 CHART NUMBER: [id number] DIAGNOSIS: Prostate cancer. STAGE: Stage II C, [id number], PSA 13.7, Gackle score 8 (4+4), grade group 4. ECOG PERFORMANCE STATUS: 0. CONSULTATION NOTE: Mr. Cai is a very pleasant 68-year-old white male with the diagnosis of what appears to be a stage II C, [id number], poorly differentiated Abhishek score 8 (4+4) adenocarcinoma of prostate with a PSA level of 13.7 who is presenting to us today status post initiation of androgen deprivation therapy for consideration of definitive external beam radiation therapy with IMRT / IGRT. HISTORY OF PRESENT ILLNESS: The patient was in his usual state of health and was found to have an elevated PSA level, which was noted to be 13.7 on 08/21/2018. On 10/03/2018, the patient underwent prostatic needle biopsy and pathology revealed a Abhishek score 8 (4+4) adenocarcinoma of the prostate involving the right side of his prostate. All biopsies of the left side failed to reveal malignancy. A bone scan was undertaken on 10/11/2018 and showed no evidence of metastatic disease. An MRI of the pelvis was done on 09/19/2018 and showed no evidence of metastatic disease either. The patient has decided he wishes to undergo definitive external beam radiation therapy with IMRT and is here to discuss the benefits, as well as drawbacks of his various treatment options. PAST MEDICAL HISTORY: The patient's past medical history is positive for depression, diabetes, hypertension, osteoarthritis, skin cancer, sleep apnea requiring C-PAP and a thoracic aortic aneurysm. In the past, he has had cataract surgeries, as well as coccyx surgery. He has the right second and third finger proximal joint replacement. He has had rotator cuff surgery and right inguinal hernia repair three times, as well as right knee arthroplasty. ALLERGIES: The patient is allergic to STATINS. SOCIAL HISTORY: The patient has quit smoking for 37 years. He had smoked one and a half packs of cigarettes per day for 12 years. He drinks alcoholic beverages socially. FAMILY HISTORY: The patient's family history is positive for a mother who of pancreatic cancer. REVIEW OF SYSTEMS The patient's review of systems is noncontributory. Denies nausea, vomiting, fevers, chills, night sweats, diplopia, headaches, anxiety or depression, anorexia, weight loss, visual disturbances, chest pain, urinary or bowel difficulties, bone pain, or neurological problems. PHYSICAL EXAMINATION: The patient is a well-developed, well-nourished male in no acute distress. HEENT exam is normocephalic, atraumatic. Extraocular movements are intact. There is no palpable cervical, supraclavicular, infraclavicular, axillary, or inguinal lymphadenopathy present. Lungs are clear to auscultation and percussion. Heart has a regular rate and rhythm. Abdomen is benign with no hepatosplenomegaly, masses, or tenderness. Rectal examination reveals a normal anal sphincter tone. His prostate is smooth with no evidence of nodularity. Skeletal examination reveals no tenderness to pressure or percussion of the bony skeleton. Extremities reveal no clubbing, cyanosis, or edema. Neurologic exam is grossly intact, as is the remainder of the physical examination. MEDICAL NECESSITY: IMRT/IGRT is clinically indicated for the highly conformal dose planning required. The target volume is in close proximity to critical structures, such as the rectum, bladder, small bowel, and femoral heads. The volume of interest must be covered with narrow margins to adequately protect immediately adjacent structures. The plan requires interpretation of complex testing such as CT localization. As noted above, special planning (IMRT) and localizing (IGRT) is required and essential to maximally protect sensitive normal tissue structures which cannot be accomplished using conventional 3-dimensional planning. ASSESSMENT: Clearly, the patient is a candidate for external beam radiation therapy, and I have so informed him. I have discussed with the patient in detail the potential benefits, as well as possible acute and chronic sequelae of external beam radiation therapy. We have discussed logistics of treatment planning, simulation and subsequent fractionated daily radiation treatments. The patient is scheduled for placement of his fiducial markers on November 07, and we will be scheduling him for external beam radiation therapy treatment planning subsequently. I also discussed with the patient his therapeutic options, including surgery, but the patient has decided on radiation and therefore we will proceed with this plan. cc: MD Vincent Rowland MD
== END ==
LOC: M ONCR 13:46
PROVIDERS: ATTEND Radiology Radiation Oncology
DX: C61 Malignant neoplasm of prostate (principal)

== ENCOUNTER → 2018-11-07 | Outpatient (CLI) | payer MEDICARE, BC ==
--- NOTE | 2018-11-07 14:11 | REP ---
TRANSRECTAL ULTRASOUND GUIDANCE FOR FIDUCIARY MARKER PLACEMENT: Real-time ultrasound evaluation of the prostate performed utilizing transrectal probe, for guidance to place three fiduciary markers, one in the right base, one in the left base and one in the apex midline. Procedure was performed by Dr. Plascencia. Electronically Signed by Craig Mathew MD 11/07/2018 06:46 P
== END ==
LOC: M SMT 10:07
PROVIDERS: ATTEND Urology
DX: C61 Malignant neoplasm of prostate (principal)
CPT/HCPCS: 55876; 76872; 76942; A4648

== ENCOUNTER 2018-12-22 08:46 | Outpatient (RCR) | payer MEDICARE, BC ==
[2018-11-28 14:53] LABS: HEMATOCRIT 39.5 % (42.0-52.0); HEMOGLOBIN 13.4 g/dl (13.5-17.5); LYMPH % 31.9 % (24.0-44.0); MEAN CORPUSCULAR HEMOGLOBIN 31.7 pg (27.0-33.0); MEAN CORPUSCULAR HGB CONC 33.9 g/dl (32.0-36.5); MEAN CORPUSCULAR VOLUME 93.4 fl (80.0-96.0); NEUTROPHILS # 4.6 10^3/uL (1.8-7.7); NEUTROPHILS % 57.9 % (36.0-66.0); RED BLOOD COUNT 4.23 10^6/uL (4.30-6.10)
--- NOTE | 2018-11-29 13:06 | RADONC ---
RADIATION ONCOLOGY SIMULATION NOTE DATE OF SERVICE: 11/28/2018 CHART NUMBER: [id number] DIAGNOSIS: Prostate cancer. SIMULATION NOTE: Mr. Cai was simulated today for his upcoming treatment for his prostate cancer. He was placed in a supine position, and immobilization devices were constructed to ensure minimal patient movement, thereby allowing for more accurate IMRT/IGRT treatments. He tolerated the immobilization device construction well with no significant untoward side effects. Thereafter, 3 mm images were obtained through the pelvis with our CT simulator. I was there during the entire simulation process. The patient will be contoured both the planned treatment volume and normal surrounding structures in order to perform the optimum IMRT plan possible. Again, the entire process was tolerated quite well by the patient without any untoward side effects. MTDD
--- NOTE | 2018-12-13 14:54 | RADONC ---
RADIATION ONCOLOGY PROGRESS NOTE DATE: 12/11/2018 CHART NUMBER: [id number] PROGRESS NOTE: Mr. Cai underwent his first fraction of radiation today to his prostate for a dose of 180 cGy. It was tolerated without difficulty or discomfort. REVIEW OF SYSTEMS: The patient's review of systems is noncontributory. Denies nausea, vomiting, fevers, chills, night sweats, diplopia, headaches, anxiety or depression, anorexia, weight loss, visual disturbances, chest pain, urinary or bowel difficulties, bone pain, or neurological problems. PHYSICAL EXAMINATION: The patient's skin is in good condition clearly with no evidence of radiation changes. This is first fraction of treatment. The remainder of his physical exam remains unchanged as well. Mr. Cai tolerated his first treatment quite well and radiation will continue as scheduled.
--- NOTE | 2018-12-20 06:16 | RADONC ---
RADIATION ONCOLOGY PROGRESS NOTE DATE: 12/18/2018 CHART #: [id number] Mr. Cai is presently at a dose of 1080 cGy to his prostate and is tolerating treatments quite well at this point with no complaints related to his radiation therapy. He is having no urinary or bowel difficulties and no bone pain. REVIEW OF SYSTEMS: The patient's review of systems is noncontributory. Denies nausea, vomiting, fevers, chills, night sweats, diplopia, headaches, anxiety or depression, anorexia, weight loss, visual disturbances, chest pain, urinary or bowel difficulties, bone pain, or neurological problems. PHYSICAL EXAMINATION: The patient's skin is in good condition with no evidence of radiation change present. There is no moist or dry desquamation. The remainder of his physical exam remains unchanged. Mr. Cai is tolerating treatments quite well and radiation will continue as scheduled.
[~2018-12-22 08:46] MED LIST changes: +INDO-16 PO; -INDO25CA PO
== END 2018-12-23 ==
LOC: M ONCR 08:46
PROVIDERS: ATTEND Radiology Radiation Oncology
DX: C61 Malignant neoplasm of prostate (principal)

== ENCOUNTER → 2019-01-22 | Outpatient (RCR) | payer MEDICARE, BC ==
--- NOTE | 2018-12-27 08:30 | RADONC ---
RADIATION ONCOLOGY PROGRESS NOTE DATE: 12/26/2018 CHART #: [id number] Mr. Cai with a diagnosis of adenocarcinoma of the prostate is currently at a dose of 1980 cGy of a proposed 7920 cGy. He is tolerating his radiotherapy reasonably well, but he states as of one day ago he started having intermittent diarrhea. REVIEW OF SYSTEMS: He denies any nausea, vomiting, hematuria, dysuria or blood per rectum. His energy level is such that he is able to maintain most day-to-day activities without any alteration of his lifestyle. Skin irritation is denied. He claims that his diarrhea has been spotty and intermittent. It is not actually diarrhea, but just slightly loose stools. EXAMINATION FINDINGS: The skin within the irradiated volume shows no evidence of erythema and certainly no focal desquamation. Lymphatics: No palpable peripheral lymphadenopathy. The remainder of the physical examination is unchanged. IMPRESSION: Tolerating therapy well. PLAN: I have advised him as to a low residue diet and to perhaps consider some very low dosage of Lomotil or Imodium on a p.r.n. basis should he develop further diarrhea. Treatments to continue. MTDD
--- NOTE | 2019-01-01 09:37 | RADONC ---
RADIATION ONCOLOGY PROGRESS NOTE DATE OF SERVICE: 01/01/2019 CHART #: [id number] Mr. Cai with a diagnosis of malignant neoplasm of the prostate stage II C, [id number] is currently receiving local regional radiotherapy via external beam. He is currently at a dose of 2700 cGy of an anticipated 4500 cGy. He is doing quite well and no longer has the blood per rectum and diarrhea. As you recall, last week he was worried about both of those issues, but he was placed on a low residue diet with resolution. He no longer takes any Imodium because he does not have to and he has noted no blood per rectum. His energy level is satisfactory and he is able to maintain most day-to-day activities without any alteration of his lifestyle. The remainder of the review of systems is unchanged. EXAMINATION FINDINGS: The skin within the irradiated volume shows neither erythema nor desquamation. There is no palpable peripheral lymphadenopathy noted in the cervical, supraclavicular, axillary or inguinal lymph node chains. Lungs are clear to auscultation and percussion. Heart is regular without murmurs. The remainder of the physical examination is unchanged. IMPRESSION: Tolerating therapy well. PLAN: Treatments to continue.
--- NOTE | 2019-01-10 12:45 | RADONC ---
RADIATION ONCOLOGY PROGRESS NOTE DATE: 01/09/2019 CHART NUMBER: [id number] Mr. Cai is presently at a dose of 3600 cGy to his prostate and is tolerating treatments quite well at this point with no complaints related to his radiation therapy. He is having no urinary or bowel difficulties. No bone pain. The patient's review of systems is noncontributory. Denies nausea, vomiting, fevers, chills, night sweats, diplopia, headaches, anxiety or depression, anorexia, weight loss, visual disturbances, chest pain, urinary or bowel difficulties, bone pain, or neurological problems. PHYSICAL EXAMINATION The patient's skin is in good condition with no evidence of moist or dry desquamation. The remainder of his physical exam remains unchanged. Mr. Cai is tolerating treatments quite well, and radiation will continue as scheduled.
--- NOTE | 2019-01-16 10:34 | RADONC ---
RADIATION ONCOLOGY PROGRESS NOTE DATE: 01/15/2019 CHART NUMBER: [id number] Mr. Cai is presently at a dose of 4500 cGy to his prostate and is tolerating treatments quite well at this point with no complaints related to his radiation therapy. He is having no urinary or bowel difficulties and no bone pain. The patient's review of systems is noncontributory. Denies nausea, vomiting, fevers, chills, night sweats, diplopia, headaches, anxiety or depression, anorexia, weight loss, visual disturbances, chest pain, urinary or bowel difficulties, bone pain, or neurological problems. PHYSICAL EXAMINATION: The patient's skin is in good condition with no evidence of radiation change present. There is no moist or dry desquamation. The remainder of his physical exam remains unchanged. Mr. Cai is tolerating treatments quite well, and radiation will continue as scheduled.
--- NOTE | 2019-01-22 09:59 | RADONC ---
RADIATION ONCOLOGY PROGRESS NOTE DATE OF SERVICE: 01/22/2019 CHART NUMBER: [id number]. PROGRESS NOTE: Mr. Cai is presently at a dose of 5400 cGy to his prostate and seminal vesicles and overall is tolerating his treatments fairly well. He is complaining of urinary frequency, reporting that he goes every hour to 1/2 hour. He has no other complaints at this time related to his radiation therapy or disease. REVIEW OF SYSTEMS: The patient's review of systems is positive for urinary frequency but is otherwise noncontributory. He denies nausea, vomiting, fevers, chills, night sweats, diplopia, headaches, anxiety or depression, anorexia, weight loss, visual disturbances, chest pain, urinary or bowel difficulties, bone pain, or neurological problems. PHYSICAL EXAMINATION: The patient's skin is in good condition with no evidence of moist or dry desquamation. The remainder of his physical exam remains unchanged. Mr. Cai is tolerating his treatments quite well. I have ordered a urinalysis and urine culture and sensitivity to be undertaken to further evaluate his urinary frequency. I have recommended Pyridium be used in the meantime, although the patient believes he is already taking that. In the meantime, radiation will continue as scheduled.
[2019-01-22 11:13] LABS: APPEARANCE, URINE CLEAR (CLEAR); BACTERIA, URINE AUTO NEGATIVE (NEGATIVE); BILIRUBIN, URINE AUTO NEGATIVE (NEGATIVE); BLOOD, URINE BLOOD NEGATIVE (NEGATIVE); COLOR, URINE AMBER (YELLOW); GLUCOSE, URINE (UA) AUTO 2+ mg/dL (NEGATIVE); KETONE, URINE AUTO NEGATIVE (NEGATIVE); LEUKOCYTE ESTERASE, URINE AUTO NEGATIVE (NEGATIVE); NITRITE, URINE AUTO POSITIVE (NEGATIVE); PROTEIN, URINE AUTO NEGATIVE (NEGATIVE); RBC, URINE AUTO 0 /HPF (0-3); SPECIFIC GRAVITY URINE AUTO 1.017 (1.002-1.035); SQUAMOUS EPITHELIAL CELL UR AU 0 /HPF (0-6); WBC, URINE AUTO 2 /HPF (0-3)
== END ==
LOC: M ONCR 12-26 08:47
PROVIDERS: ATTEND Radiology Radiation Oncology
DX: C61 Malignant neoplasm of prostate (principal); Z79.899 Other long term (current) drug therapy

== ENCOUNTER 2019-02-09 08:44 | Outpatient (RCR) | payer MEDICARE, BC ==
--- NOTE | 2019-01-29 10:58 | RADONC ---
RADIATION ONCOLOGY PROGRESS NOTE DATE: 01/29/2019 CHART NUMBER: [id number] PROGRESS NOTE: Mr. Cai is presently at a dose of 6300 cGy to his prostate and is tolerating treatments quite well at this point with no complaints related to his radiation therapy. He is having no urinary or bowel difficulties and no bone pain. REVIEW OF SYSTEMS: The patient's review of systems is noncontributory. Denies nausea, vomiting, fevers, chills, night sweats, diplopia, headaches, anxiety or depression, anorexia, weight loss, visual disturbances, chest pain, urinary or bowel difficulties, bone pain, or neurological problems. PHYSICAL EXAMINATION: The patient's skin is in good condition with no evidence of radiation change present. There is no moist or dry desquamation. The remainder of his physical exam remains unchanged. Mr. Cai is tolerating treatments quite well and radiation will continue as scheduled.
--- NOTE | 2019-02-05 10:12 | RADONC ---
RADIATION ONCOLOGY PROGRESS NOTE DATE OF SERVICE: 02/05/2019 CHART NUMBER: [id number] Mr. Cai is presently at a dose of 7200 cGy to his prostate and is tolerating treatments quite well at this point with no complaints related to his radiation therapy. He is having no urinary or bowel difficulties and no bone pain. The patient's review of systems is noncontributory. Denies nausea, vomiting, fevers, chills, night sweats, diplopia, headaches, anxiety or depression, anorexia, weight loss, visual disturbances, chest pain, urinary or bowel difficulties, bone pain, or neurological problems. PHYSICAL EXAMINATION: The patient's skin is in good condition with no evidence of moist or dry desquamation. The remainder of his physical exam remains unchanged. Mr. Cai is tolerating treatments quite well, and radiation will continue as scheduled.
--- NOTE | 2019-02-11 14:59 | RADONC ---
RADIATION ONCOLOGY TREATMENT SUMMARY DATE OF VISIT: 02/09/2019 CHART NUMBER: [id number] DIAGNOSIS: Prostate cancer. STAGE: Stage II C, [id number], PSA 13.7, Houck score 8 (4+4), grade group 4. ECOG PERFORMANCE STATUS: 0. TREATMENT SUMMARY: Mr. Cai is a very pleasant 68-year-old white male with the diagnosis of what appears to be a stage II C, [id number] poorly differentiated Abhishek score 8 (4+4) adenocarcinoma of prostate with a PSA level of 13.7 who presented to us for consideration of definitive radiation therapy with IMRT / IGRT. We treated the patient to his prostate for a total dose of 7920 cGy delivered in 44 fractions of 180 cGy each over 58 elapsed days from 12/11/2018 through 02/09/2019. The patient's prostate was treated on the linear accelerator utilizing a 6 MV photon beam via IMRT / IGRT. We initially treated the prostate and seminal vesicles first, along with lymph nodes for a dose of 4500 cGy. Following completion of that, we delivered an additional 900 cGy to the prostate and seminal vesicles bringing the seminal vesicles to a total dose of 5400 cGy. Then a boost to the prostate itself for an additional 2520 cGy was delivered once again bringing it to a total dose of 7920 cGy. Mr. Cai tolerated his treatments quite well and was able to complete therapy as prescribed without interruption. I have scheduled the patient to see me again in 1 month for further followup. He will also continue to be followed by his other physicians as well. Thank you for allowing us to participate in the care of this very pleasant gentleman. If I could be of any further assistance or provide you with any information, please feel free to contact me at anytime. As always, warm regards, Craig Granda MD cc: MD Vincent Rowland MD
== END 2019-02-22 ==
LOC: M ONCR 08:44
PROVIDERS: ATTEND Radiology Radiation Oncology
DX: C61 Malignant neoplasm of prostate (principal)

== ENCOUNTER → 2019-02-10 | Outpatient (CLI) | payer MEDICARE, BC ==
[2019-02-10 18:10] LABS: HEMATOCRIT 40.1 % (42.0-52.0); HEMOGLOBIN 12.9 g/dl (13.5-17.5); MEAN CORPUSCULAR HEMOGLOBIN 30.1 pg (27.0-33.0); MEAN CORPUSCULAR HGB CONC 32.2 g/dl (32.0-36.5); MEAN CORPUSCULAR VOLUME 93.7 fl (80.0-96.0); PLATELET COUNT, AUTOMATED 205 10^3/uL (150-450); RED BLOOD COUNT 4.28 10^6/uL (4.30-6.10); WHITE BLOOD COUNT 4.3 10^3/uL (4.0-10.0)
[2019-02-10 18:31] LABS: HEMOGLOBIN A1c 7.2 %
[2019-02-10 18:32] LABS: ALBUMIN 3.4 GM/DL (3.2-5.2); BILIRUBIN,TOTAL 0.5 MG/DL (0.2-1.0); CALCIUM LEVEL 9.1 MG/DL (8.8-10.2); CREATININE FOR GFR 1.58 MG/DL (0.70-1.30); GLOMERULAR FILTRATION RATE 46.4 (>42); POTASSIUM SERUM 3.9 MEQ/L (3.5-5.1); TOTAL PROTEIN 6.4 GM/DL (6.4-8.2)
== END ==
LOC: M WUC 08:06
PROVIDERS: ATTEND Family Medicine
DX: N18.3 Chronic kidney disease, stage 3 (moderate) (principal); E11.9 Type 2 diabetes mellitus without complications

== ENCOUNTER → 2019-03-08 | Outpatient (CLI) | payer MEDICARE, BC | LOC: M WUC 12:42 | PROVIDERS: ATTEND Radiology Radiation Oncology | DX: C61 Malignant neoplasm of prostate (principal) ==

== ENCOUNTER → 2019-03-14 | Outpatient (CLI) | payer MEDICARE, BC ==
--- NOTE | 2019-03-16 08:09 | RADONC ---
RADIATION ONCOLOGY FOLLOWUP NOTE DATE OF SERVICE: 03/14/2019 CHART #: [id number] DIAGNOSIS: Prostate cancer. STAGE: II C, [id number], PSA 13.7, Abhishek score 8 (4-4), grade group 4. ECOG PERFORMANCE STATUS: 0. FOLLOWUP NOTE: Mr. Cai is a very pleasant 68 year-old white male with the diagnosis of what appears to be a stage II C, [id number], poorly differentiated [place] score 8 (4-4) adenocarcinoma of the prostate with initial PSA level of 13.7 who is presenting to us today for routine followup visit 1 month post completion of external beam radiation therapy. The patient presents today reporting that he is doing quite well with no complaints at this time related to his radiation therapy or disease. He is having no urinary or bowel difficulties. No bone pain. REVIEW OF SYSTEMS: The patient's review of systems is noncontributory. Denies nausea, vomiting, fevers, chills, night sweats, diplopia, headaches, anxiety or depression, anorexia, weight loss, visual disturbances, chest pain, urinary or bowel difficulties, bone pain, or neurological problems. PHYSICAL EXAMINATION: The patient is a well-developed, well-nourished male in no acute distress. HEENT exam is normocephalic, atraumatic. Extraocular movements are intact. There is no palpable cervical, supraclavicular, infraclavicular, axillary, or inguinal lymphadenopathy present. Lungs are clear to auscultation and percussion. Heart has a regular rate and rhythm. Abdomen is benign with no hepatosplenomegaly, masses, or tenderness. Rectal examination reveals a normal anal sphincter tone. His prostate is smooth with no evidence of nodularity. Skeletal examination reveals no tenderness to pressure or percussion of the bony skeleton. Extremities reveal no clubbing, cyanosis, or edema. Neurologic exam is grossly intact, as is the remainder of the physical examination. ASSESSMENT: The patient is clinically NELY at this time. He is being followed and managed closely by his urologist, Dr. Plascencia, who is undertaking his hormonal treatment. In light of this, I am discharging him from my followup except on a p.r.n. basis. cc: MD Vincent Rowland MD
== END ==
LOC: M ONCR 09:25
PROVIDERS: ATTEND Radiology Radiation Oncology
DX: C61 Malignant neoplasm of prostate (principal)

== ENCOUNTER → 2019-08-28 | Outpatient (REF) | payer MEDICARE, BC ==
[2019-08-28 11:00] LABS: HEMATOCRIT 34.7 % (42.0-52.0); MEAN CORPUSCULAR HEMOGLOBIN 31.3 pg (27.0-33.0); MEAN CORPUSCULAR HGB CONC 34.6 g/dl (32.0-36.5); MEAN CORPUSCULAR VOLUME 90.4 fl (80.0-96.0); PLATELET COUNT, AUTOMATED 203 10^3/uL (150-450); RED BLOOD COUNT 3.84 10^6/uL (4.30-6.10); WHITE BLOOD COUNT 4.3 10^3/uL (4.0-10.0)
[2019-08-28 11:09] LABS: ALBUMIN 3.5 GM/DL (3.2-5.2); BILIRUBIN,TOTAL 0.4 MG/DL (0.2-1.0); CALCIUM LEVEL 9.3 MG/DL (8.8-10.2); CHOLESTEROL RISK RATIO 5.692 (<5); CREATININE FOR GFR 1.64 MG/DL (0.70-1.30); GLOMERULAR FILTRATION RATE 44.3 (>42); POTASSIUM SERUM 3.5 MEQ/L (3.5-5.1); TOTAL PROTEIN 6.9 GM/DL (6.4-8.2)
[2019-08-28 12:00] LABS: HEMOGLOBIN A1c 9.1 %
== END ==
LOC: M PLALAB 08:05
PROVIDERS: ATTEND Family Medicine
DX: I11.9 Hypertensive heart disease without heart failure (principal); N18.3 Chronic kidney disease, stage 3 (moderate); E11.9 Type 2 diabetes mellitus without complications; E78.2 Mixed hyperlipidemia

== ENCOUNTER → 2019-09-11 | Outpatient (CLI) | payer MEDICARE, BC ==
[2019-09-11 12:54] LABS: PLATELET COUNT, AUTOMATED 208 10^3/uL (150-450)
[2019-09-11 13:04] LABS: PROTHROMBIN TIME 12.9 SECONDS (11.8-14.0)
[2019-09-11 13:05] LABS: PARTIAL THROMBOPLASTIN TIME 27.5 SECONDS (25.0-38.4)
== END ==
LOC: M WUC 09:32
PROVIDERS: ATTEND Physician Assistant
DX: Z01.818 Encounter for other preprocedural examination (principal); M47.897 Other spondylosis, lumbosacral region; Z11.59 Encounter for screening for other viral diseases
CPT/HCPCS: 36415; 85027; 85610; 85730; U0003

== ENCOUNTER → 2019-09-11 | Outpatient (CLI) | payer MEDICARE, BC | LOC: M LABSMTC 11:12 | PROVIDERS: ATTEND Physical Medicine & Rehabilitation | DX: Z11.59 Encounter for screening for other viral diseases (principal) ==

== ENCOUNTER → 2019-11-07 | Outpatient (CLI) | payer MEDICARE, BC ==
[~2019-11-07] MED LIST changes: +AMLO1TAB24 PO; +ASPI81TA86 PO; +CARV25TA PO; +CINN500C15 PO; +CITA20TA6 PO; +FERR1TAB8 PO; +INDA25TAB PO; +MULT-40 PO
--- NOTE | 2019-11-08 00:32 | REP ---
KUB ABDOMEN AND PELVIS: Two KUB films of abdomen and pelvis performed. Calcific density overlies the lower pole of the left kidney and measures approximately 8 mm in diameter. Questionable tiny calcification overlies the mid right kidney. There appear to be phleboliths in the inferior pelvis with adjacent metallic clips. There are scattered vascular calcifications. There are degenerative changes of the spine. IMPRESSION: Calcific density overlying the lower pole of the left kidney measures 8 mm and may represent a renal calculus. Questionable punctate calcification mid right kidney. Electronically Signed by Craig Mathew MD 11/09/2019 10:07 A
== END ==
LOC: M WUC 13:08
PROVIDERS: ATTEND Nurse Practitioner Family
DX: N20.0 Calculus of kidney (principal)

== ENCOUNTER → 2019-11-08 | Outpatient (REF) | payer MEDICARE, BC ==
[~2019-11-08] MED LIST changes: -AMLO1TAB24 PO; +AMLO5TAB6 PO; +ASPI81TA85 PO; -ASPI81TA86 PO
== END ==
LOC: M SMT 18:06
PROVIDERS: ATTEND Urology
DX: R31.0 Gross hematuria (principal)

== ENCOUNTER → 2019-11-08 | Outpatient (CLI) | payer MEDICARE, BC ==
[~2019-11-08] MED LIST changes: +AMLO1TAB24 PO; -AMLO5TAB6 PO; -ASPI81TA85 PO; +ASPI81TA86 PO
[2019-11-08 16:43] LABS: CALCIUM LEVEL 9.5 MG/DL (8.8-10.2); CREATININE FOR GFR 1.92 MG/DL (0.70-1.30); GLOMERULAR FILTRATION RATE 36.9 (>42); POTASSIUM SERUM 3.9 MEQ/L (3.5-5.1); PROSTATIC SPECIFIC AG MONITOR 0.01 NG/ML (< 4.00)
== END ==
LOC: M WUC 14:38
PROVIDERS: ATTEND Urology
DX: C61 Malignant neoplasm of prostate (principal); R31.0 Gross hematuria
CPT/HCPCS: 36415; 80048; 84153; 87086; G0463

== ENCOUNTER 2019-11-09 06:42 | Day surgery (SDC) | payer MEDICARE, BC ==
[~2019-11-09] VITALS: Ht 170.2 cm; Wt 97.3 kg
[~2019-11-09 06:42] MED LIST changes: -AMLO1TAB24 PO; -ASPI81TA86 PO; -CARV25TA PO; -CINN500C15 PO; -CITA20TA6 PO; -FERR1TAB8 PO; -INDA25TAB PO; -MULT-40 PO
[2019-11-09] MEDS ORDERED: CARV25TA PO (07:02)
[2019-11-09] MEDS ORDERED: ASPI81TA86 PO (07:02)
[2019-11-09] MEDS ORDERED: AMLO1TAB24 PO (07:02)
[2019-11-09] MEDS ORDERED: ONDANSETRON 4MG/2ML VIAL IV ONE (07:45)
[2019-11-09] MEDS ORDERED: NS 1,000 ML IV ONE (07:45)
[2019-11-09] MEDS ORDERED: MORPHINE 4 MG/ML 1ML VIAL/SYRINGE (J2270) IV ONE (07:45)
[2019-11-09 07:47] LABS: BASO % 0.5 % (0.0-1.0); EOS # 0.2 10^3/uL (0.0-0.5); EOS % 2.8 % (0.0-3.0); HEMATOCRIT 35.6 % (42.0-52.0); HEMOGLOBIN 12.1 g/dl (13.5-17.5); LYMPH # 1.1 10^3/uL (1.5-5.0); LYMPH % 14.1 % (24.0-44.0); MEAN CORPUSCULAR HEMOGLOBIN 30.5 pg (27.0-33.0); MEAN CORPUSCULAR VOLUME 89.7 fl (80.0-96.0); MONO # 0.8 10^3/uL (0.0-0.8); MONO % 9.9 % (0.0-5.0); NEUTROPHILS # 5.7 10^3/uL (1.5-8.5); NEUTROPHILS % 71.9 % (36.0-66.0); PLATELET COUNT, AUTOMATED 212 10^3/uL (150-450); RED BLOOD COUNT 3.97 10^6/uL (4.30-6.10)
[2019-11-09] MEDS ORDERED: ONDANSETRON 4MG/2ML VIAL As Ordered ONE ×2 (07:49→10:42)
[2019-11-09 08:11] LABS: ALBUMIN 3.7 GM/DL (3.2-5.2); ALT/SGPT 26 U/L (12-78); BILIRUBIN,DIRECT 0.1 MG/DL (0.0-0.2); BILIRUBIN,TOTAL 0.6 MG/DL (0.2-1.0); LIPASE 202 U/L (73-393); TOTAL PROTEIN 7.1 GM/DL (6.4-8.2)
[2019-11-09] MEDS ORDERED: hydrALAZINE 20MG/ML 1ML VIAL (J0360 PER 20MG) IV STA (08:36)
[2019-11-09] MEDS ORDERED: CITA20TA6 PO (08:38)
[2019-11-09] MEDS ORDERED: INDA25TAB PO (08:38)
[2019-11-09] MEDS ORDERED: MORPHINE 2 MG/ML 1ML VIAL (J2270) IV ONE (08:45)
[2019-11-09 08:46] VITALS: BP 206/102
[2019-11-09] MEDS ORDERED: CINN500C15 PO (08:46)
[2019-11-09] MEDS ORDERED: MULT-40 PO (08:46)
[2019-11-09] MEDS ORDERED: INDO-16 PO (08:46)
[2019-11-09] MEDS ORDERED: FERR1TAB8 PO (08:46)
--- NOTE | 2019-11-09 09:05 | REP ---
REASON FOR EXAM: Left-sided flank pain. History of renal calculi. COMPARISON: 11/17/2016, the latest prior. Curvilinear opacities are seen in the left lung base consistent with fibrotic and subsegmental atelectatic changes. There are no pleural or pericardial effusions. Just proximal to or at the level of the ureterovesical junction on the left, there is a calculus. This is causing moderate hydronephrosis and hydroureter with perinephric stranding. There are additional nonobstructing calculi seen in the inferior pole of the left kidney. There are two tiny right nephroliths in the inferior pole without obstructive phenomena. There are bilateral renal cysts unchanged. The liver, gallbladder, spleen, pancreas and adrenal glands are unchanged. There is no appearance in the abdominal aorta or paraaortic regions. There is no free fluid or free air seen in the abdomen or pelvis. There is no significant change in the osseous structures. IMPRESSION: Obstructing calculus on the left with related findings and additional findings as described above. Electronically Signed by Dieter Hagen DO 11/09/2019 11:25 A
[2019-11-09 09:11] LABS: CK-MB VALUE MASS 2.4 NG/ML (<3.6); CPK CREATINE PHOSPHOKINASE 134 U/L (39-308); MB/CK RELATIVE INDEX 1.79 (< OR =4); TROPONIN I < 0.02 NG/ML (< 0.10)
--- NOTE | 2019-11-09 09:40 | REP ---
REASON: History of cardiac disorders, undisclosed. The latest prior for comparison is a two-view examination of 10/03/2017. There is cardiomegaly accentuated by technique. The technique utilized in obtaining the radiograph has magnified the cardiac silhouette and accentuated the interstitial markings. There is no significant change compared to the prior exam other than technique. There is evidence of mild basilar fibrotic change. The pleural angles are sharp. No definite acute patchy parenchymal opacities or pleural effusions have developed. There is no significant change in the osseous structures. There is mild persistent elevation of the diaphragmatic surface of the right lung. IMPRESSION: No evidence of acute cardiopulmonary disease. Findings as described above. Electronically Signed by Dieter Hagen DO 11/09/2019 11:26 A
[2019-11-09] MEDS ORDERED: MIDAZOLAM INJ 2MG/2ML VIAL (J2250 PER 1MG) As Ordered ONE (10:41)
[2019-11-09] MEDS ORDERED: propofoL 200 MG/20 ML VIAL As Ordered ONE (10:42)
[2019-11-09] MEDS ORDERED: LIDOCAINE 2% 100MG/5ML SDV (FOR ANES.) As Ordered ONE (10:42)
[2019-11-09] MEDS ORDERED: dexameTHASONE 4 MG/ML 1ML VIAL (J1100 PER 1MG) As Ordered ONE (10:42)
[2019-11-09] MEDS ORDERED: fentaNYL 100 MCG/2 ML INJECTION (J3010) As Ordered ONE (10:42)
[2019-11-09] MEDS ORDERED: CONRAY-60 60% 50ML VIAL (Q9961) As Ordered ONE (12:06)
--- NOTE | 2019-11-09 12:11 | SMCUROLCON ---
Urology Consultation General Date of Consultation 11/09/19 Reason For Consultation This patient is seen for Left Flank Pain. History of Present Illness This is a 69 y/o M w/ cT1c [place] 4+4 prostate cancer treated w/ EBRT (completed 02/09/19) and ADT and kidney stones, presenting to the ER this morning w/ worsening L flank pain. He was seen in office yesterday for L flank pain for a few days and at that time his pain was much improved. Since then his pain worsened and he therefore came into the ER for evaluation. He denies n/v. He denies dysuria. He denies f/c/ns. A noncontrast CT A/P obtained in the ED was notable for an obstructing 6mm distal L ureteral stone as well as b/l intrarenal stones. His Cr was 2 from a a baseline of approximately 1.5. UA appears negative for infection. Past Medical History Medical History DM2, HTN, HL, AAA, kidney stones, prostate cancer, depression, HAN Surgical Hstory ESWL, bilateral blepharoplasty, R inguinal hernia repair, knee replacement Medications Current Medications Current Medications Medications (Trade) Dose Ordered Sig/Sergey Route PRN Reason Start Time Stop Time Status Last Admin Dose Admin Home Med (Med Rec Complete!) ASDIRECTED XX 11/09/19 09:00 11/09/19 08:49 DC Hydralazine HCl (Apresoline) 10 mg STAT STAT IV 11/09/19 08:36 11/09/19 08:37 DC 11/09/19 08:46 Allergies Allergies: Coded Allergies: No Known Allergies (Unverified , 11/09/19) Review of Systems Constitutional: Denies: Fever, Chills, Sweats, Weakness, Malaise Skin: Denies: Rash, Lesions, Breakdown, Nail Changes Pulmonary: Denies: Dyspnea, Cough Cardiovascular: Denies Chest Pain, Denies Palpitations Gastrointestinal: Reports: Abdominal Pain (LLQ); Denies: Nausea, Vomiting Genitourinary: Denies: Dysuria, Frequency, Incontinence, Hematuria Musculoskeletal: Reports: Back Pain (L flank) Psych: Reports: Mood Normal Physical Examination General Exam: Alert, Cooperative, No Acute Distress Chest Exam: Normal air movement Heart Exam: Rate Normal Abdomen Exam: Soft, Tenderness (mild LLQ) Skin Exam: Nl turgor and temperature Neuro Exam: Normal Speech Psych Exam: Mental status NL, Mood NL Vital Signs/I&O Vital Signs Date Time Temp Pulse Resp B/P (MAP) Pulse Ox O2 Delivery O2 Flow Rate FiO2 11/09/19 08:56 177/84 (115) 11/09/19 08:46 97.8 69 20 99 Room Air Laboratory Data 24H Labs Laboratory Tests 2 11/09/19 07:28: Immature Granulocyte % (Auto) 0.8, Neutrophils (%) (Auto) 71.9H, Lymphocytes (%) (Auto) 14.1L, Monocytes (%) (Auto) 9.9H, Eosinophils (%) (Auto) 2.8, Basophils (%) (Auto) 0.5, Neutrophils # (Auto) 5.7, Lymphocytes # (Auto) 1.1L, Monocytes # (Auto) 0.8, Eosinophils # (Auto) 0.2, Basophils # (Auto) 0.0, Nucleated Red Blood Cells % (auto) 0.0, Urine Color YELLOW, Urine Appearance CLEAR, Urine pH 5.0, Urine Specific [place] 1.015, Urine Protein 1+H, Urine Glucose (UA) NEGATIVE, Urine Ketones NEGATIVE, Urine Blood 3+H, Urine Nitrite NEGATIVE, Urine Bilirubin NEGATIVE, Urine Urobilinogen 0.2, Urine Leukocyte Esterase NEGATIVE, Urine WBC (Auto) 0, Urine RBC (Auto) 82H, Urine Hyaline Casts (Auto) 0, Urine Bacteria (Auto) 1+H, Urine Squamous Epithelial Cells 0, Urine Mucus (Auto) SMALL, Urine Sperm (Auto) , Total Bilirubin 0.6, Direct Bilirubin 0.1, Aspartate Amino Transf (AST/SGOT) 18, Alanine Aminotransferase (ALT/SGPT) 26, Alkaline Phosphatase 80, Total Protein 7.1, Albumin 3.7, Albumin/Globulin Ratio 1.1, Lipase 202 11/09/19 07:32: POC Glucose (Misc Panel) 161H, POC Sodium (Misc Panel) 137, POC Potassium (Misc Panel) 3.8, POC Chloride (Misc Panel) 99, POC Total CO2 (Misc Panel) 27.0, POC Blood Urea Nitrogen (Misc Panel 33H, POC Ionized Calcium (Misc Panel) 4.8, POC Creatinine (Misc Panel) 2.0H, POC Hematocrit (Misc Panel) 36.0L 11/09/19 08:55: CBC/BMP Laboratory Tests 11/09/19 07:28 Assessment This is a 69 y/o M w/ [place] on CKD 2/2 an obstructing 6mm distal left ureteral stone. I recommended that we take him to the OR today for cystoscopy, L ureteroscopy w/ laser lithotripsy, and L ureteral stent placement. After a discussion of the risks and benefits of surgery, informed consent was signed. Plan - to OR now for surgery - NPO - 2g [facility] CHECO MCKEON MD Nov 09, 2019 09:07
[2019-11-09] MEDS ORDERED: ceFAZolin SOD 2 GM in IV 1 EA IV ONE (12:15)
[2019-11-09] MEDS ORDERED: ACETAMINOPHEN 1000MG 100ML IV BTL (OFIRMEV) (J0131 PER 10MG) As Ordered ONE (12:30)
[2019-11-09] MEDS ORDERED: ceFAZolin 2 GM/D5W 50 ML IV BAG (J0690 PER 500MG) As Ordered ONE (12:32)
[2019-11-09] MEDS ORDERED: PHENYLephrine HCL 500 MCG/5 ML (100MCG/ML) SYRINGE (J2370) As Ordered ONE (13:15)
[2019-11-09] MEDS ORDERED: ePHEDrine SULFATE 25 MG/5 ML(5MG/ML) SYRINGE As Ordered ONE (13:15)
[2019-11-09] MEDS ORDERED: oxyCODONE 5MG TAB PO PRN (13:45)
[2019-11-09] MEDS ORDERED: METOCLOPRAMIDE INJ 10MG/2ML VIAL (J2765 PER 1) IV PRN (13:45)
[2019-11-09] MEDS ORDERED: MEPERIDINE INJ 25 MG/ML VIAL (J2175) IV PRN (13:45)
[2019-11-09] MEDS ORDERED: ONDANSETRON 4MG/2ML VIAL IV PRN (13:45)
[2019-11-09] MEDS ORDERED: LR 1,000 ML IV SCH (13:45)
[2019-11-09] MEDS ORDERED: fentaNYL 100 MCG/2 ML INJECTION (J3010) IV PRN (13:45)
[2019-11-09] MEDS ORDERED: PERCOCET 5MG/325MG TAB PO PRN (14:15)
--- NOTE | 2019-11-09 14:33 | REP ---
C-ARM VIEWS ABDOMINAL PELVIS: Two C-arm views abdomen/pelvis performed during placement of a left ureteral stent. The left pelvicaliceal system is partially opacified with contrast. Left ureteral stent is placed. The proximal end is in the left renal pelvis. The distal end is in the urinary bladder. 9 seconds fluoroscopy time utilized. Electronically Signed by Craig Mathew MD 11/12/2019 09:42 A
[2019-11-09 15:00] VITALS: BP 183/84
--- NOTE | 2019-11-10 09:22 | ECGEPIP ---
[facility] - ED Test Date: 2019-11-09 Pat Name: ASHANTI LOWE Department: Room: - Gender: Male Management Technician: TC : 1950 Requested By: LLOYD Burnett PA-C Order Number: [id number] Reading MD: Harpal De La Rosa Measurements Intervals [place] Rate: 64 P: 17 FL: 178 QRS: -6 QRSD: 110 T: 112 QT: 438 QTc: 454 Interpretive Statements SINUS RHYTHM SEPTAL MYOCARDIAL INFARCTION, PROBABLY OLD, NEW COMPARED TO 10/03/17 INFERIOR MYOCARDIAL INFARCTION, PROBABLY OLD Electronically Signed on 11-10-2019 9:22:10 EDT by Harpal De La Rosa
[2019-12-10 14:43] LABS: Ca Ox Monohydrate 20 % (.); Size 5x3 mm (.); Uric Acid 80 % (.)
--- NOTE | 2020-02-29 08:37 | RO ---
DATE OF OPERATION: 11/09/2019 PREOPERATIVE DIAGNOSIS: Kidney stones. POSTOPERATIVE DIAGNOSIS: Kidney stones. PROCEDURES: Cystoscopy, left ureteroscopy with laser lithotripsy and basket extraction of stones, left retrograde pyelogram with intraoperative interpretation of images, left ureteral stent placement. SURGEON: Anup Plascencia MD. WALL TAPER: None. ANESTHESIA: General. OPERATIVE INDICATIONS: This is a 69-year-old male who was found to have an obstructing 5 to 6 mm distal left ureteral stone as well as additional stones inside his left kidney. He was brought to the Operating Room for treatment. DESCRIPTION OF PROCEDURE: The patient was brought to the operating room and general anesthesia was induced. Prophylactic antibiotics were infused. He was placed in the dorsal lithotomy position, prepped and draped in the usual sterile fashion. A rigid cystoscope was inserted into the urethral meatus and advanced into the bladder. A guidewire was advanced up the left collecting system. I then went up the left collecting system with a short semi-rigid ureteroscope and within the distal ureter, a 5 mm stone seen. The stone was fragmented into smaller pieces using a 272 micron laser fiber and then the fragments were removed using a basket. Next, a ureteral access sheath was advanced up the left collecting system. I then went up the access sheath with a flexible ureteroscope and examined the left kidney thoroughly. There were several stones in the mid to lower pole calyces. The stones were fragmented into smaller pieces using a 272 micron laser fiber. All the fragments were removed using a basket. A retrograde pyelogram was performed, and notable for moderate left hydronephrosis with no extravasation. I then withdrew the ureteroscope along with the access sheath, and no additional stones were seen inside the ureter. The guidewire was then utilized to advance a 6-[place] x 22-32 cm JJ ureteral stent up the left collecting system. The wire was removed and there were adequate curls of the stent in the left renal pelvis and in the bladder. The bladder was emptied of all fluids and this marked conclusion of the procedure. The patient was taken out of the dorsal lithotomy position, awakened from anesthesia, and transferred to the recovery room in stable condition. ESTIMATED BLOOD LOSS: 5 mL. COMPLICATIONS: None. SPECIMEN: Kidney stones. PLAN: Patient will follow-up in the urology clinic for stent removal. RADHAMES
== END 2019-11-09 15:16 | disposition home or self-care (01) ==
LOC: M ED 06:42 → M SDC 10:47
PROVIDERS: ATTEND Urology
DX: N20.0 Calculus of kidney (principal); I10 Essential (primary) hypertension; E11.9 Type 2 diabetes mellitus without complications; E78.2 Mixed hyperlipidemia; Z85.46 Personal history of malignant neoplasm of prostate; F32.9 Major depressive disorder, single episode, unspecified; G47.33 Obstructive sleep apnea (adult) (pediatric); Z79.899 Other long term (current) drug therapy
CPT/HCPCS: 52356; 71045; 74176; 74420; 80047; 80076; 81001; 82365; 82550; 82553; 83690; 84484; 85025; 88300; 93005; 93041; 96361; 96374; 96375; 96376; 99285; C1769; C1894; C2617; J0131; J0360; J0690; J1100; J2250; J2270; J2370; J2405; J3010; Q9961; U0002

== ENCOUNTER → 2019-12-06 | Outpatient (REF) | payer MEDICARE, BC ==
[~2019-12-06] MED LIST changes: +AMLO1TAB24 PO; +ASPI81TA86 PO; +CARV25TA PO; +CINN500C15 PO; +CITA20TA6 PO; +FERR1TAB8 PO; +INDA25TAB PO; +MULT-40 PO
[2020-01-23 21:05] LABS: CALCIUM LEVEL 9.4 MG/DL (8.8-10.2); CREATININE FOR GFR 1.78 MG/DL (0.70-1.30); GLOMERULAR FILTRATION RATE 40.3 (>42); POTASSIUM SERUM 3.7 MEQ/L (3.5-5.1)
== END ==
LOC: M LABWUC 08:27
PROVIDERS: ATTEND Family Medicine
DX: E11.9 Type 2 diabetes mellitus without complications (principal); Z79.84 Long term (current) use of oral hypoglycemic drugs

== ENCOUNTER → 2019-12-22 | Outpatient (CLI) | payer MEDICARE, BC | LOC: M LABSMTC 14:10 | PROVIDERS: ATTEND Physical Medicine & Rehabilitation | DX: Z20.828 Contact with and (suspected) exposure to other viral communicable diseases (principal) | CPT/HCPCS: C9803; U0002 ==

== ENCOUNTER → 2020-03-05 | Outpatient (CLI) | payer MEDICARE, BC ==
[2020-03-05 10:30] LABS: HEMATOCRIT 32.8 % (42.0-52.0); HEMOGLOBIN 10.9 g/dl (13.5-17.5); MEAN CORPUSCULAR HEMOGLOBIN 30.1 pg (27.0-33.0); MEAN CORPUSCULAR HGB CONC 33.2 g/dl (32.0-36.5); MEAN CORPUSCULAR VOLUME 90.6 fl (80.0-96.0); PLATELET COUNT, AUTOMATED 195 10^3/uL (150-450); RED BLOOD COUNT 3.62 10^6/uL (4.30-6.10); WHITE BLOOD COUNT 4.4 10^3/uL (4.0-10.0)
[2020-03-05 10:55] LABS: CREATININE, URINE 80.8 MG/DL; MALB URINE SIEMENS 79.1 MG/L; MAU/CREAT RATIO 97.8 MCG/MG (0.0-30.0)
[2020-03-05 11:00] LABS: HEMOGLOBIN A1c 8.1 %
[2020-03-05 11:16] LABS: ALBUMIN 3.6 GM/DL (3.2-5.2); ALT/SGPT 27 U/L (12-78); BILIRUBIN,TOTAL 0.4 MG/DL (0.2-1.0); BLOOD UREA NITROGEN 38 MG/DL (7-18); CALCIUM LEVEL 9.7 MG/DL (8.8-10.2); CARBON DIOXIDE LEVEL 28 MEQ/L (21-32); CHLORIDE LEVEL 105 MEQ/L (98-107); CHOLESTEROL LEVEL 273 MG/DL (<200); CHOLESTEROL RISK RATIO 4.706 (<5); CREATININE FOR GFR 1.83 MG/DL (0.70-1.30); FREE T4 0.77 NG/DL (0.76-1.46); GLUCOSE, FASTING 111 MG/DL (70-100); HDL CHOLESTEROL 58 MG/DL (>40); LDL CHOLESTEROL 183 MG/DL (<100); NON-HDL-C 215 MG/DL; SODIUM LEVEL 140 MEQ/L (136-145); TOTAL PROTEIN 6.4 GM/DL (6.4-8.2); TRIGLYCERIDES LEVEL 158 MG/DL (<150)
== END ==
LOC: M WUC 08:16
PROVIDERS: ATTEND Family Medicine
DX: E78.2 Mixed hyperlipidemia (principal); E11.9 Type 2 diabetes mellitus without complications; F32.9 Major depressive disorder, single episode, unspecified; G47.33 Obstructive sleep apnea (adult) (pediatric); M10.9 Gout, unspecified; Z12.5 Encounter for screening for malignant neoplasm of prostate
CPT/HCPCS: 36415; 80053; 80061; 82043; 83036; 84439; 84443; 84550; 85027; G0103

== ENCOUNTER → 2020-03-13 | Outpatient (REF) | payer MEDICARE, BC | LOC: M SFHCADAM 10:18 | PROVIDERS: ATTEND Family Medicine | DX: N18.31 Chronic kidney disease, stage 3a (principal); D63.1 Anemia in chronic kidney disease ==

== ENCOUNTER → 2020-03-14 | Outpatient (CLI) | payer MEDICARE, BC ==
[2020-03-14 13:18] LABS: TOTAL PROTEIN 6.6 GM/DL (6.4-8.2)
[2020-03-14 13:24] LABS: FERRITIN 63 NG/ML (26-388); IRON (FE) 71 UG/DL (65-175); PERCENT SATURATION 20.6 % (19.7-50.0); TOTAL IRON BINDING CAPACITY 345 UG/DL (250-450)
[2020-03-14 13:28] LABS: FOLATE > 24.0 NG/ML (>5.4); VITAMIN B12 LEVEL 254 PG/ML (247-911)
[2020-03-15 18:08] LABS: FREE KAPPA LIGHT CHAINS SERUM 36.4 mg/L (3.3-19.4); KAPPA/LAMBDA RATIO SERUM 2.28 (0.26-1.65)
[2020-03-18 14:07] LABS: ALBUMIN 4.09 GM/DL (3.29-5.55); ALPHA-1-GLOBULIN % 5.1 % (2.9-4.9); ALPHA-1-GLOBULINS 0.34 GM/DL (0.17-0.41); ALPHA-2-GLOBULINS 0.65 GM/DL (0.42-0.99); ALPHA-2-GLOBULINS % 9.8 % (7.1-11.8); BETA-1-GLOBULINS 0.46 GM/DL (0.28-0.60); BETA-1-GLOBULINS % 6.9 % (4.7-7.2); BETA-2-GLOBULINS 0.37 GM/DL (0.19-0.55); BETA-2-GLOBULINS % 5.6 % (3.2-6.5); GAMMA GLOBULIN % 10.6 % (11.1-18.8)
== END ==
LOC: M WUC 08:52
PROVIDERS: ATTEND Family Medicine
DX: N18.9 Chronic kidney disease, unspecified (principal); D63.1 Anemia in chronic kidney disease

== ENCOUNTER → 2020-04-23 | Outpatient (CLI) | payer MEDICARE, BC ==
[2020-04-23 11:53] LABS: INR 0.9; PARTIAL THROMBOPLASTIN TIME 24.7 SECONDS (24.2-38.5); PROTHROMBIN TIME 12.3 SECONDS (12.5-14.3)
[2020-04-23 12:09] LABS: PLATELET COUNT, AUTOMATED 215 10^3/uL (150-450)
== END ==
LOC: M WUC 09:12
PROVIDERS: ATTEND Physical Medicine & Rehabilitation
DX: M51.37 Other intervertebral disc degeneration, lumbosacral region (principal)

== ENCOUNTER → 2020-06-25 | Outpatient (CLI) | payer MEDICARE, BC ==
[2020-06-25 10:26] LABS: HEMATOCRIT 32.8 % (42.0-52.0); HEMOGLOBIN 10.9 g/dl (13.5-17.5); MEAN CORPUSCULAR HEMOGLOBIN 30.6 pg (27.0-33.0); MEAN CORPUSCULAR HGB CONC 33.2 g/dl (32.0-36.5); MEAN CORPUSCULAR VOLUME 92.1 fl (80.0-96.0); PLATELET COUNT, AUTOMATED 217 10^3/uL (150-450); RED BLOOD COUNT 3.56 10^6/uL (4.30-6.10)
[2020-06-25 11:05] LABS: ALBUMIN 3.6 GM/DL (3.2-5.2); ALT/SGPT 26 U/L (12-78); BILIRUBIN,TOTAL 0.3 MG/DL (0.2-1.0); BLOOD UREA NITROGEN 39 MG/DL (7-18); CALCIUM LEVEL 9.9 MG/DL (8.8-10.2); CARBON DIOXIDE LEVEL 30 MEQ/L (21-32); CHLORIDE LEVEL 102 MEQ/L (98-107); CREATININE FOR GFR 2.41 MG/DL (0.70-1.30); GLOMERULAR FILTRATION RATE 28.3 (>42); GLUCOSE, FASTING 179 MG/DL (70-100); POTASSIUM SERUM 3.9 MEQ/L (3.5-5.1); SODIUM LEVEL 138 MEQ/L (136-145); TOTAL PROTEIN 6.7 GM/DL (6.4-8.2)
[2020-06-25 11:14] LABS: HEMOGLOBIN A1c 8.5 %
[2020-06-27 08:57] LABS: ALBUMIN 4.22 GM/DL (3.29-5.55); ALPHA-1-GLOBULIN % 5.1 % (2.9-4.9); ALPHA-1-GLOBULINS 0.34 GM/DL (0.17-0.41); ALPHA-2-GLOBULINS 0.67 GM/DL (0.42-0.99); BETA-1-GLOBULINS 0.46 GM/DL (0.28-0.60); BETA-1-GLOBULINS % 6.8 % (4.7-7.2); BETA-2-GLOBULINS 0.37 GM/DL (0.19-0.55); BETA-2-GLOBULINS % 5.5 % (3.2-6.5); GAMMA GLOBULIN % 9.6 % (11.1-18.8); GAMMA GLOBULINS 0.64 GM/DL (0.65-1.58)
== END ==
LOC: M WUC 08:12
PROVIDERS: ATTEND Family Medicine
DX: N18.31 Chronic kidney disease, stage 3a (principal); D63.1 Anemia in chronic kidney disease; E11.9 Type 2 diabetes mellitus without complications; D89.2 Hypergammaglobulinemia, unspecified

== ENCOUNTER → 2020-07-02 | Outpatient (REF) | payer MEDICARE, BC | LOC: M SFHCADAM 08:54 | PROVIDERS: ATTEND Family Medicine | DX: D89.2 Hypergammaglobulinemia, unspecified (principal) ==

== ENCOUNTER → 2020-07-15 | Outpatient (CLI) | payer MEDICARE, BC ==
--- NOTE | 2020-07-15 15:47 | REP ---
INDICATION: CLD III A. COMPARISON: 10/28/2015. TECHNIQUE: Real-time sonographic evaluation of the kidneys is performed. FINDINGS: Renal cortical echogenicity pattern is normal bilaterally and contours are smooth. There is no hydronephrosis on the right. There appears to be mild hydronephrosis on the left. Hypoechoic structure of the mid right kidney contains low-level echoes internally and measures 1.3 cm in diameter. This was present on the prior study at which time it measured 9 mm. This is probably benign. There is a 1.1 cm cyst again noted of the mid left kidney which was seen on the prior study, and a larger simple appearing cyst of the left kidney 2.6 cm in diameter, also similar to the prior exam. The right kidney measures 10.6 x 4.7 x 5.2 cm. Left renal dimensions are 11.4 x 4.8 x 5.4 cm. The urinary bladder is unremarkable. IMPRESSION: Mild left hydronephrosis. No right hydronephrosis. Cystic structures are seen in each kidney as discussed above. <Electronically signed by Craig Mathew > 07/15/20 [id number]
== END ==
LOC: M RAD 13:30
PROVIDERS: ATTEND Family Medicine
DX: N18.31 Chronic kidney disease, stage 3a (principal)

== ENCOUNTER → 2020-07-17 | Outpatient (CLI) | payer MEDICARE, BC ==
[~2020-07-17] MED LIST changes: +B-12100021 PO; +OXYC1TAB23; +TAMS1CAP17
--- NOTE | 2020-07-17 10:19 | REP ---
INDICATION: HYDRONEPHROSIS COMPARISON: Comparison CT study is from November 09, 2019. Comparison renal sonography July 15, 2020.. TECHNIQUE: Helical scanning is acquired in 4 mm axial images were reformatted. Coronal and sagittal MPR images were generated and reviewed. FINDINGS: Preliminary digital home health care social worker radiograph demonstrates an unremarkable bowel gas pattern. The lung bases are clear on lung window settings. There is no evidence of pleural effusion or upper abdominal ascites. There is fairly heavy vascular calcification along the course of the left coronary artery and right coronary artery. Normal adrenal glands are seen. There is mild diffuse fatty infiltration of the liver. No abnormality is noted in the gallbladder or the pancreas. The spleen is unremarkable. There is a transverse duodenal diverticulum. There is 2-3 mm intrarenal calculus at the left mid kidney. There is a 3 mm intrarenal calculus in the upper pole the right kidney and a tiny calcific density is seen in the lower pole 2-3 mm in size on the right. No right-sided hydronephrosis is seen. There is mild fullness in the proximal ureter and renal pelvis on the left. No ureteral calculus is seen however. No bladder calculus is observed. There are fiducial markers in the prostate again noted. There is diverticulosis visible in the sigmoid colon. No CT evidence of diverticulitis is seen. Small and large intestinal bowel loops are unremarkable. There is a stable left renal cyst laterally at the lower pole measuring 2.9 cm in greatest diameter. A 1 cm cyst is seen at the upper pole on the right also unchanged. IMPRESSION: Bilateral intrarenal nephrolithiasis. Minimal fullness of the renal pelvis and proximal ureter on the left without stone in either ureter. There is mild fatty infiltration of the liver. Vascular calcification is again noted. No acute abnormality. <Electronically signed by Eugenio Arellano > 07/17/20 [id number]
== END ==
LOC: M RAD 09:42
PROVIDERS: ATTEND Nurse Practitioner Family
DX: N13.30 Unspecified hydronephrosis (principal); N20.0 Calculus of kidney

== ENCOUNTER → 2020-07-23 | Outpatient (CLI) | payer MEDICARE, BC ==
--- NOTE | 2020-07-23 10:01 | RADENCPD ---
Date/Time of Encounter Date of Encounter: Jul 23, 2020 Time of Encounter: 09:39 Encounter Giles came in for a non-urgent follow up today. Briefly he has a history of prostate cancer s/p definitive EBRT 79.2 Gy in 44 fractions completed 02/09/19. His PSA most recent on file from 10/29/19 is undetectable. He has been having ongoing hematuria and is in follow up with Drs. King and Temo for this. He has a pending cystoscopy/ureteroscopy in August. He came in today however because he has been having BL hip pain and wonders if this is related to RT. I reviewed his radiation plan in detail as well as recent imaging including the CT from 07/17/20 and MRI from 2019. He received <30 Gy integral dose to both hips over his 44 fractions of treatment which equates to a minimal risk (<1%) of insufficiency fracture. Moreover I do not see evidence of cortical or joint degradation on his scans. Therefore I do not think his hip pain is radiation related. I reviewed this with him in detail. Based on his symptoms which he reports today, BL hip pain worse with use and n on-radiating in quality, as well as his prior right total knee arthroplasty, I suspect rather that he has osteoarthritis. For this I encouraged him to follow with his orthopedic surgeon and primary care doctor. He was thankful for the explanation, and I apologized for not having any special remedy for his pain which sounds severe. We agreed that he would continue to follow with Dr. Plascencia for PSA monitoring, so no return appointment was made. I told him however, that I remain available to him at anytime to assist in his care. ANANDA HENSON MD Jul 23, 2020 10:01
== END ==
LOC: M ONCR 08:48
PROVIDERS: ATTEND General Practice
DX: C61 Malignant neoplasm of prostate (principal); R31.9 Hematuria, unspecified; M25.551 Pain in right hip; M25.552 Pain in left hip; Z96.651 Presence of right artificial knee joint

== ENCOUNTER → 2020-08-04 | Outpatient (REF) | payer MEDICARE, BC ==
[2020-08-04 19:11] LABS: COMPLEMENT C3 115 MG/DL (90-180); COMPLEMENT C4 28 MG/DL (10-40); FERRITIN 81 NG/ML (26-388); IRON (FE) 86 UG/DL (65-175); PERCENT SATURATION 24.2 % (19.7-50.0); TOTAL IRON BINDING CAPACITY 356 UG/DL (250-450); TOTAL PROTEIN 7.2 GM/DL (6.4-8.2)
[2020-08-04 19:17] LABS: HEPATITIS B SURFACE ANTIBODY NEGATIVE (POSITIVE)
[2020-08-04 19:18] LABS: FOLATE > 24.0 NG/ML; VITAMIN B12 LEVEL 648 PG/ML
[2020-08-04 19:28] LABS: HEPATITIS B SURFACE ANTIGEN NEGATIVE (NEGATIVE)
[2020-08-04 19:56] LABS: HEPATITIS C VIRUS ABY INDEX < 0.0 INDEX (<0.8)
[2020-08-04 19:57] LABS: HEPATITIS B CORE ANTIBODY IGM NEGATIVE (NEGATIVE)
[2020-08-05 13:43] LABS: ALBUMIN 4.54 GM/DL (3.29-5.55); ALPHA-1-GLOBULIN % 5.1 % (2.9-4.9); ALPHA-1-GLOBULINS 0.37 GM/DL (0.17-0.41); ALPHA-2-GLOBULINS % 9.7 % (7.1-11.8); BETA-1-GLOBULINS 0.49 GM/DL (0.28-0.60); BETA-1-GLOBULINS % 6.8 % (4.7-7.2); BETA-2-GLOBULINS 0.37 GM/DL (0.19-0.55); BETA-2-GLOBULINS % 5.2 % (3.2-6.5); GAMMA GLOBULIN % 10.2 % (11.1-18.8); GAMMA GLOBULINS 0.73 GM/DL (0.65-1.58)
== END ==
LOC: M LAB REF 16:56
PROVIDERS: ATTEND Internal Medicine Nephrology
DX: R80.9 Proteinuria, unspecified (principal); D50.9 Iron deficiency anemia, unspecified

== ENCOUNTER → 2020-09-25 | Outpatient (CLI) | payer MEDICARE, BC ==
[2020-09-25 12:23] LABS: APPEARANCE, URINE CLEAR (CLEAR); BACTERIA, URINE AUTO NEGATIVE (NEGATIVE); BILIRUBIN, URINE AUTO NEGATIVE (NEGATIVE); BLOOD, URINE BLOOD NEGATIVE (NEGATIVE); COLOR, URINE YELLOW (YELLOW); GLUCOSE, URINE (UA) AUTO NEGATIVE (NEGATIVE); KETONE, URINE AUTO NEGATIVE (NEGATIVE); LEUKOCYTE ESTERASE, URINE AUTO NEGATIVE (NEGATIVE); MUCUS, URINE SMALL (NEGATIVE); NITRITE, URINE AUTO NEGATIVE (NEGATIVE); PROTEIN, URINE AUTO NEGATIVE (NEGATIVE); RBC, URINE AUTO 0 /HPF (0-3); SPECIFIC GRAVITY URINE AUTO 1.014 (1.002-1.035); SQUAMOUS EPITHELIAL CELL UR AU 0 /HPF (0-6); UROBILINOGEN, URINE AUTO 0.2 mg/dL (0.0-2.0); WBC, URINE AUTO 1 /HPF (0-3)
[2020-09-25 12:31] LABS: HEMATOCRIT 35.6 % (42.0-52.0); HEMOGLOBIN 11.7 g/dl (13.5-17.5); MEAN CORPUSCULAR HEMOGLOBIN 30.3 pg (27.0-33.0); MEAN CORPUSCULAR HGB CONC 32.9 g/dl (32.0-36.5); MEAN CORPUSCULAR VOLUME 92.2 fl (80.0-96.0); PLATELET COUNT, AUTOMATED 264 10^3/uL (150-450); RED BLOOD COUNT 3.86 10^6/uL (4.30-6.10); WHITE BLOOD COUNT 5.3 10^3/uL (4.0-10.0)
[2020-09-25 13:12] LABS: ALBUMIN 3.6 GM/DL (3.2-5.2); BILIRUBIN,TOTAL 0.4 MG/DL (0.2-1.0); CALCIUM LEVEL 9.7 MG/DL (8.8-10.2); CHOLESTEROL RISK RATIO 6.444 (<5); CREATININE FOR GFR 2.28 MG/DL (0.70-1.30); GLOMERULAR FILTRATION RATE 30.2 (>42); POTASSIUM SERUM 4.6 MEQ/L (3.5-5.1); TOTAL PROTEIN 6.8 GM/DL (6.4-8.2)
[2020-09-25 14:20] LABS: HEMOGLOBIN A1c 8.4 %
== END ==
LOC: M WUC 08:06
PROVIDERS: ATTEND Family Medicine
DX: N18.31 Chronic kidney disease, stage 3a (principal); D63.1 Anemia in chronic kidney disease; R31.0 Gross hematuria; E78.2 Mixed hyperlipidemia; E11.22 Type 2 diabetes mellitus with diabetic chronic kidney disease

== ENCOUNTER → 2020-10-14 | Outpatient (CLI) | payer MEDICARE, BC ==
--- NOTE | 2020-10-14 11:27 | REP ---
INDICATION: OSTEOARTHRITIS ALEXANDER HIPS. COMPARISON: None. TECHNIQUE: Axial T1 and T2. Sagittal T2. Coronal T1, fat suppressed proton density, fat suppressed T2 and STIR. FINDINGS: Large [id number] coronal T1 and stir images of the pelvis show the hip joint spaces to be symmetric and relatively well maintained with only slight narrowing identified. The femoral heads are spherical in shape and symmetric in appearance. The chondral surfaces are smooth. There is no hip joint effusion. There is no abnormal signal seen in the trochanteric tendono bursal region of either hip. Mild degenerative changes are seen involving the imaged portion of the sacroiliac joints. The cortical marrow signal seen throughout the pelvis is within normal limits. There are some degenerative changes seen at the pubic symphysis right greater than left. There is no evidence of a mass or mass effect. Small field of view dedicated magnified triplane imaging of the right hip shows smooth chondral surfaces. Mm sized foci of T1 and T2 prolongation seen along the superior cortical marrow junction of the femoral neck and minimal patchy T2 hyper signal in the acetabulum. None of these foci are subchondral in location. There is no evidence of a labral signal abnormality. Small [id number] magnified dedicated images of the left hip in all 3 planes show no signal abnormalities. There is no joint effusion. There is no gross abnormal labral signal. The chondral surfaces appear smooth. IMPRESSION: 1. Very mild hip degenerative changes as described above. 2. Small right femoral neck cysts of doubtful significance. The likely represent small synovial herniation pits. 3. Other findings as described above. <Electronically signed by Dieter Hagen > 10/14/20 [id number]
== END ==
LOC: M RAD 09:22
PROVIDERS: ATTEND Physician Assistant Surgical
DX: M16.0 Bilateral primary osteoarthritis of hip (principal)

== ENCOUNTER → 2020-11-28 | Outpatient (REF) | payer MEDICARE, BC | LOC: M LAB REF 13:39 | PROVIDERS: ATTEND Internal Medicine Nephrology | DX: N18.32 Chronic kidney disease, stage 3b (principal) ==

== ENCOUNTER → 2020-12-02 | Outpatient (CLI) | payer MEDICARE, BC ==
[2020-12-02 10:41] LABS: CALCIUM LEVEL 10.2 MG/DL (8.8-10.2); CREATININE FOR GFR 3.06 MG/DL (0.70-1.30); GLOMERULAR FILTRATION RATE 21.5 (>42); POTASSIUM SERUM 3.5 MEQ/L (3.5-5.1)
== END ==
LOC: M WUC 08:09
PROVIDERS: ATTEND Nurse Practitioner Family
DX: R31.0 Gross hematuria (principal)

== ENCOUNTER → 2020-12-08 | Outpatient (CLI) | payer MEDICARE, BC ==
--- NOTE | 2020-12-08 10:12 | REP ---
INDICATION: GROSS HEMATURIA COMPARISON: Comparison CT study abdomen pelvis July 17, 2020.. TECHNIQUE: Helical scanning is acquired and 3 mm axial images were reformatted. Coronal and sagittal MPR images were generated and reviewed. FINDINGS: Preliminary digital batch still operator radiograph shows moderate colonic stool, vascular calcification, and fiducial markers in the prostate. There appear to be herniorrhaphy sutures in the right inguinal region as well. Axial images through the lung bases show no significant finding. No focal liver or spleen lesion is seen. Normal adrenal glands are again appreciated. No abnormality is noted in the pancreas. The gallbladder is small and contracted unremarkable. There are small renal cortical cysts bilaterally, the largest of which is at the lower pole on the left measuring 2.5 cm in greatest diameter. There is no evidence of hydronephrosis or ureteral calculus. There is bilateral intrarenal nephrolithiasis. There is a 2 mm calculus in the upper pole the right kidney and a 4 mm calculus in the lower pole collecting system of the right kidney. On the left, there is a tiny CT calculus at upper pole level and another tiny calcific density is seen in the lower pole collecting system. A larger calculus was visible in the lower pole collecting system on the July 17, 2020 study. No ureteral stone is seen. There is however a calculus in the midline of the bladder lumen posteriorly. This measures 3 mm in size. A 2nd bladder calculus is seen on the left posteriorly 2-3 mm in size. No bladder mass lesion is seen. There There is left colonic diverticulosis without CT evidence of diverticulitis. Moderate stool is present. There is an appendicolith in the appendix but no appendiceal inflammatory changes are seen. IMPRESSION: 1. Bilateral intrarenal nephrolithiasis lithiasis without hydronephrosis. 2. There are 2 small bladder calculi. 3. Fiducial markers are seen in the prostate. 4. Appendicolith without appendiceal inflammation. 5. Left colonic diverticulosis without CT evidence of diverticulitis. <Electronically signed by Eugenio Arellano > 12/08/20 [id number]
== END ==
LOC: M PLAIMG 09:08
PROVIDERS: ATTEND Nurse Practitioner Family
DX: N20.0 Calculus of kidney (principal); N21.0 Calculus in bladder; Z97.8 Presence of other specified devices; N28.1 Cyst of kidney, acquired; M48.061 Spinal stenosis, lumbar region without neurogenic claudication

== ENCOUNTER → 2020-12-08 | Outpatient (REF) | payer MEDICARE, BC ==
[2020-12-08 17:40] LABS: PLATELET COUNT, AUTOMATED 290 10^3/uL (150-450)
[2020-12-08 17:54] LABS: INR 0.94
[2020-12-08 17:55] LABS: PARTIAL THROMBOPLASTIN TIME 29.4 SECONDS (25.9-37.0)
== END ==
LOC: M WUC 16:34 → M LAB REF 16:34
PROVIDERS: ATTEND Physician Assistant Surgical
DX: M48.061 Spinal stenosis, lumbar region without neurogenic claudication (principal)

== ENCOUNTER → 2020-12-24 | Outpatient (CLI) | payer MEDICARE, BC ==
[2020-12-24 12:02] LABS: ALBUMIN 3.5 GM/DL (3.2-5.2); ALT/SGPT 27 U/L (12-78); BILIRUBIN,TOTAL 0.4 MG/DL (0.2-1.0); BLOOD UREA NITROGEN 45 MG/DL (7-18); CALCIUM LEVEL 9.7 MG/DL (8.8-10.2); CARBON DIOXIDE LEVEL 27 MEQ/L (21-32); CHLORIDE LEVEL 102 MEQ/L (98-107); CHOLESTEROL LEVEL 311 MG/DL (<200); CHOLESTEROL RISK RATIO 7.232 (<5); CREATININE FOR GFR 2.55 MG/DL (0.70-1.30); GLOMERULAR FILTRATION RATE 26.5 (>42); GLUCOSE, FASTING 264 MG/DL (70-100); HDL CHOLESTEROL 43 MG/DL (>40); NON-HDL-C 268 MG/DL; SODIUM LEVEL 137 MEQ/L (136-145); TOTAL PROTEIN 6.8 GM/DL (6.4-8.2); TRIGLYCERIDES LEVEL 401 MG/DL (<150)
[2020-12-24 12:52] LABS: HEMOGLOBIN A1c 10.1 %
== END ==
LOC: M WUC 08:02
PROVIDERS: ATTEND Family Medicine
DX: E78.49 Other hyperlipidemia (principal); E11.9 Type 2 diabetes mellitus without complications

== ENCOUNTER → 2021-01-27 | Outpatient (CLI) | payer MEDICARE, BC ==
[2021-01-27 11:12] LABS: HEMOGLOBIN A1c 8.7 %
[2021-01-27 11:25] LABS: CALCIUM LEVEL 9.4 MG/DL (8.8-10.2); CREATININE FOR GFR 2.51 MG/DL (0.70-1.30); POTASSIUM SERUM 3.8 MEQ/L (3.5-5.1)
== END ==
LOC: M WUC 08:06
PROVIDERS: ATTEND Family Medicine
DX: E11.9 Type 2 diabetes mellitus without complications (principal)

== ENCOUNTER → 2021-02-13 | Outpatient (CLI) | payer MEDICARE, BC | LOC: M RAD 09:13 | PROVIDERS: ATTEND Physician Assistant Surgical | DX: M16.0 Bilateral primary osteoarthritis of hip (principal); Z53.9 Procedure and treatment not carried out, unspecified reason ==

== ENCOUNTER → 2021-02-23 | Outpatient (CLI) | payer MEDICARE, BC ==
[2021-02-23 18:31] LABS: CREATININE FOR GFR 2.63 MG/DL (0.70-1.30); GLOMERULAR FILTRATION RATE 25.6 (>42)
== END ==
LOC: M WUC 14:10
PROVIDERS: ATTEND Physician Assistant Surgical
DX: M89.9 Disorder of bone, unspecified (principal)

== ENCOUNTER → 2021-04-15 | Outpatient (REF) | payer MEDICARE, BC | LOC: M LAB REF 12:47 | PROVIDERS: ATTEND Nurse Practitioner Family | DX: N18.32 Chronic kidney disease, stage 3b (principal) ==

== ENCOUNTER → 2021-04-28 | Outpatient (CLI) | payer MEDICARE, BC ==
[2021-04-28 10:47] LABS: HEMOGLOBIN A1c 7.6 %
[2021-04-28 10:52] LABS: CALCIUM LEVEL 9.6 MG/DL (8.8-10.2); CREATININE FOR GFR 2.77 MG/DL (0.70-1.30); GLOMERULAR FILTRATION RATE 24.1 (>42); POTASSIUM SERUM 3.8 MEQ/L (3.5-5.1)
== END ==
LOC: M WUC 07:59
PROVIDERS: ATTEND Family Medicine
DX: E11.9 Type 2 diabetes mellitus without complications (principal)

== ENCOUNTER → 2021-05-14 | Outpatient (CLI) | payer MEDICARE, BC ==
[~2021-05-14] MED LIST changes: +E-Z-GAS II EFFERVESCENT PACKET (SODIUM BICARB./CITRIC ACID/SIMETHICONE) As Ordered ONE; +E-Z-HD 98% w/w 340GM SUSP BTL As Ordered ONE; +E-Z-PAQUE 96% w/w SUSP 176GM BTL As Ordered ONE
== END ==
LOC: M RAD 08:48
PROVIDERS: ATTEND Otolaryngology
DX: J39.2 Other diseases of pharynx (principal); K22.89 Other specified disease of esophagus; K21.9 Gastro-esophageal reflux disease without esophagitis

== ENCOUNTER → 2021-06-17 | Outpatient (CLI) | payer MEDICARE, BC ==
[~2021-06-17] MED LIST changes: -E-Z-GAS II EFFERVESCENT PACKET (SODIUM BICARB./CITRIC ACID/SIMETHICONE) As Ordered ONE; -E-Z-HD 98% w/w 340GM SUSP BTL As Ordered ONE; -E-Z-PAQUE 96% w/w SUSP 176GM BTL As Ordered ONE
== END ==
LOC: M WUC 08:34
PROVIDERS: ATTEND Urology
DX: N20.0 Calculus of kidney (principal); K59.00 Constipation, unspecified

== ENCOUNTER → 2021-07-10 | Outpatient (CLI) | payer MEDICARE, BC | LOC: M WUC 09:34 | PROVIDERS: ATTEND Urology | DX: Z85.46 Personal history of malignant neoplasm of prostate (principal) ==

== ENCOUNTER → 2021-07-15 | Outpatient (CLI) | payer MEDICARE, BC | LOC: M RAD 12:42 | PROVIDERS: ATTEND Physician Assistant | DX: M79.606 Pain in leg, unspecified (principal); R55 Syncope and collapse; I65.23 Occlusion and stenosis of bilateral carotid arteries; I70.203 Unspecified atherosclerosis of native arteries of extremities, bilateral legs ==

== ENCOUNTER → 2021-07-21 | Outpatient (CLI) | payer MEDICARE, BC ==
[2021-07-21 12:35] LABS: PLATELET COUNT, AUTOMATED 230 10^3/uL (150-450)
[2021-07-21 12:44] LABS: INR 0.96; PROTHROMBIN TIME 13.2 SECONDS (12.7-14.5)
[2021-07-21 12:45] LABS: PARTIAL THROMBOPLASTIN TIME 26.3 SECONDS (25.9-37.0)
== END ==
LOC: M WUC 09:07
PROVIDERS: ATTEND Physician Assistant Surgical
DX: M51.37 Other intervertebral disc degeneration, lumbosacral region (principal)

== ENCOUNTER → 2021-08-06 | Outpatient (CLI) | payer MEDICARE, BC | LOC: M WUC 08:23 | PROVIDERS: ATTEND Orthopaedic Surgery | DX: R77.8 Other specified abnormalities of plasma proteins (principal) ==

== ENCOUNTER → 2021-10-07 | Outpatient (CLI) | payer MEDICARE, BC | LOC: M WUC 08:30 | PROVIDERS: ATTEND Physician Assistant | DX: S20.212A Contusion of left front wall of thorax, initial encounter (principal); X58.XXXA Exposure to other specified factors, initial encounter; Y92.9 Unspecified place or not applicable; Y93.9 Activity, unspecified; Y99.9 Unspecified external cause status ==

== ENCOUNTER → 2021-10-16 | Outpatient (CLI) | payer MEDICARE, BC ==
[2021-10-16 12:28] LABS: PLATELET COUNT, AUTOMATED 231 10^3/uL (150-450)
[2021-10-16 12:38] LABS: INR 0.96; PROTHROMBIN TIME 13.2 SECONDS (12.7-14.5)
[2021-10-16 12:39] LABS: PARTIAL THROMBOPLASTIN TIME 25.9 SECONDS (25.9-37.0)
== END ==
LOC: M WUC 09:24
PROVIDERS: ATTEND Physician Assistant Surgical
DX: M53.3 Sacrococcygeal disorders, not elsewhere classified (principal)

== ENCOUNTER → 2021-11-02 | Outpatient (CLI) | payer MEDICARE, BC ==
[2021-11-02 09:49] LABS: BASO # 0.1 10^3/uL (0.0-0.2); EOS # 0.2 10^3/uL (0.0-0.5); EOS % 2.2 % (0.0-3.0); HEMATOCRIT 33.7 % (42.0-52.0); HEMOGLOBIN 11.5 g/dl (13.5-17.5); LYMPH # 1.3 10^3/uL (1.5-5.0); LYMPH % 19.5 % (24.0-44.0); MEAN CORPUSCULAR HEMOGLOBIN 29.9 pg (27.0-33.0); MEAN CORPUSCULAR HGB CONC 34.1 g/dl (32.0-36.5); MEAN CORPUSCULAR VOLUME 87.8 fl (80.0-96.0); MONO # 0.7 10^3/uL (0.0-0.8); NEUTROPHILS # 4.3 10^3/uL (1.5-8.5); NEUTROPHILS % 64.2 % (36.0-66.0); PLATELET COUNT, AUTOMATED 233 10^3/uL (150-450); RED BLOOD COUNT 3.84 10^6/uL (4.30-6.10); WHITE BLOOD COUNT 6.7 10^3/uL (4.0-10.0)
[2021-11-02 10:26] LABS: ALBUMIN 3.7 GM/DL (3.2-5.2); BILIRUBIN,TOTAL 0.4 MG/DL (0.2-1.0); CALCIUM LEVEL 9.4 MG/DL (8.8-10.2); CHOLESTEROL RISK RATIO 6.306 (<5); CREATININE FOR GFR 2.84 MG/DL (0.70-1.30); FREE T4 0.72 NG/DL (0.76-1.46); GLOMERULAR FILTRATION RATE 23.4 (>42)
== END ==
LOC: M WUC 08:09
PROVIDERS: ATTEND Family Medicine
DX: E11.9 Type 2 diabetes mellitus without complications (principal); I11.9 Hypertensive heart disease without heart failure

== ENCOUNTER 2021-11-15 08:34 | Emergency (ER) | payer MEDICARE, BC ==
[~2021-11-15] VITALS: Ht 162.6 cm; Wt 94.5 kg
[2021-11-15 08:34] VITALS: BP 158/82
[2021-11-15] MEDS ORDERED: KETOROLAC 30 MG/ML 1ML VIAL IM ONE (11:05)
[2021-11-15] MEDS ORDERED: LIDOCAINE 5% (LIDODERM) PATCH TD ONE (11:05)
[2021-11-15] MEDS ORDERED: methocarbamoL 750 MG TAB PO ONE (11:05)
[2021-11-15] MEDS ORDERED: TRAM50TA2 PO (12:52)
[2021-11-15] MEDS ORDERED: ASPE4PAD TOP (12:52)
[2021-11-15] MEDS ORDERED: METH-1165 PO (12:52)
== END 2021-11-15 13:25 | disposition home or self-care (01) ==
LOC: M ED 08:34
DX: R19.03 Right lower quadrant abdominal swelling, mass and lump (principal); M51.36 Other intervertebral disc degeneration, lumbar region; M51.37 Other intervertebral disc degeneration, lumbosacral region; M54.50 Low back pain, unspecified; E11.9 Type 2 diabetes mellitus without complications; Z79.4 Long term (current) use of insulin; Z79.82 Long term (current) use of aspirin; Z79.899 Other long term (current) drug therapy; Z88.8 Allergy status to other drugs, medicaments and biological substances; Z87.442 Personal history of urinary calculi; Z86.79 Personal history of other diseases of the circulatory system; Z87.39 Personal history of other diseases of the musculoskeletal system and connective tissue; Z98.890 Other specified postprocedural states
CPT/HCPCS: 72131; 72192; 96372; 99283; J1885

== ENCOUNTER → 2022-03-04 | Outpatient (CLI) | payer MEDICARE, BC ==
[~2022-03-04] MED LIST changes: +ASPE4PAD TOP; +INDA1.253 PO; -INDA125TA PO; +METH-1165 PO; +TRAM50TA2 PO
[2022-03-04 11:32] LABS: CALCIUM LEVEL 9.3 MG/DL (8.8-10.2); CREATININE FOR GFR 2.66 MG/DL (0.70-1.30); GLOMERULAR FILTRATION RATE 25.2 (>42); POTASSIUM SERUM 3.7 MEQ/L (3.5-5.1)
[2022-03-04 12:16] LABS: HEMOGLOBIN A1c 11.5 %
== END ==
LOC: M WUC 08:15
PROVIDERS: ATTEND Family Medicine
DX: E11.9 Type 2 diabetes mellitus without complications (principal)

== ENCOUNTER → 2022-05-18 | Outpatient (CLI) | payer MEDICARE, BC ==
[2022-05-18 10:21] LABS: HEMOGLOBIN A1c 9.8 % (4.0-6.0)
[2022-05-18 10:42] LABS: CALCIUM LEVEL 9.4 MG/DL (8.3-10.6); CREATININE FOR GFR 2.41 MG/DL (0.70-1.30); GLOMERULAR FILTRATION RATE 28.2 (>42); POTASSIUM SERUM 3.8 MMOL/L (3.5-5.1)
== END ==
LOC: M WUC 08:08
PROVIDERS: ATTEND Family Medicine
DX: E11.65 Type 2 diabetes mellitus with hyperglycemia (principal)

== ENCOUNTER → 2022-07-02 | Outpatient (CLI) | payer MEDICARE, BC | LOC: M WUC 09:02 | PROVIDERS: ATTEND Urology | DX: N20.0 Calculus of kidney (principal); M47.816 Spondylosis without myelopathy or radiculopathy, lumbar region ==

== ENCOUNTER → 2022-07-09 | Outpatient (CLI) | payer MEDICARE, BC | LOC: M WUC 08:05 | PROVIDERS: ATTEND Urology | DX: Z85.46 Personal history of malignant neoplasm of prostate (principal) ==

== ENCOUNTER → 2022-07-09 | Outpatient (CLI) | payer MEDICARE, BC ==
[2022-07-09 09:33] LABS: HEMATOCRIT 34.2 % (42.0-52.0); HEMOGLOBIN 11.3 g/dl (13.5-17.5); MEAN CORPUSCULAR HEMOGLOBIN 29.3 pg (27.0-33.0); MEAN CORPUSCULAR VOLUME 88.6 fl (80.0-96.0); PLATELET COUNT, AUTOMATED 212 10^3/uL (150-450); RED BLOOD COUNT 3.86 10^6/uL (4.30-6.10); WHITE BLOOD COUNT 7.4 10^3/uL (4.0-10.0)
[2022-07-09 10:00] LABS: CREATININE, URINE 94.5 MG/DL
[2022-07-09 10:02] LABS: MAU/CREAT RATIO 155.5 MCG/MG (0.0-30.0)
[2022-07-09 10:04] LABS: ALBUMIN 3.6 G/DL (3.2-5.2); BILIRUBIN,TOTAL 0.4 MG/DL (0.3-1.2); CALCIUM LEVEL 9.4 MG/DL (8.3-10.6); CHOLESTEROL RISK RATIO 7.08 (<5); CREATININE FOR GFR 2.47 MG/DL (0.70-1.30); GLOMERULAR FILTRATION RATE 27.4 (>42); HDL CHOLESTEROL 40.8 MG/DL (>40); LDL CHOLESTEROL 210.8 MG/DL (<100); NON-HDL-C 248.2 MG/DL; POTASSIUM SERUM 3.5 MMOL/L (3.5-5.1); TOTAL PROTEIN 6.6 G/DL (5.7-8.2)
== END ==
LOC: M WUC 08:02
PROVIDERS: ATTEND Family Medicine
DX: N18.32 Chronic kidney disease, stage 3b (principal); E11.65 Type 2 diabetes mellitus with hyperglycemia; E78.2 Mixed hyperlipidemia; E11.22 Type 2 diabetes mellitus with diabetic chronic kidney disease; Z12.5 Encounter for screening for malignant neoplasm of prostate; Z85.46 Personal history of malignant neoplasm of prostate

== ENCOUNTER → 2022-09-16 | Outpatient (CLI) | payer MEDICARE, BC | LOC: M WHC 12:24 | PROVIDERS: ATTEND Nurse Practitioner Family | DX: N18.4 Chronic kidney disease, stage 4 (severe) (principal); Z87.442 Personal history of urinary calculi; N28.1 Cyst of kidney, acquired ==

== ENCOUNTER → 2022-10-13 | Outpatient (CLI) | payer MEDICARE, BC ==
[2022-10-13 10:38] LABS: HEMOGLOBIN A1c 6.6 % (4.0-6.0)
[2022-10-13 10:42] LABS: ALBUMIN 3.6 G/DL (3.2-5.2); BILIRUBIN,TOTAL 0.4 MG/DL (0.3-1.2); CHOLESTEROL RISK RATIO 6.33 (<5); CREATININE FOR GFR 2.82 MG/DL (0.70-1.30); GLOMERULAR FILTRATION RATE 23.5 (>42); HDL CHOLESTEROL 40.7 MG/DL (>40); LDL CHOLESTEROL 177.9 MG/DL (<100); NON-HDL-C 217.3 MG/DL; POTASSIUM SERUM 3.4 MMOL/L (3.5-5.1); TOTAL PROTEIN 6.5 G/DL (5.7-8.2)
== END ==
LOC: M WUC 08:10
PROVIDERS: ATTEND Family Medicine
DX: E11.9 Type 2 diabetes mellitus without complications (principal); E78.2 Mixed hyperlipidemia

== ENCOUNTER → 2022-10-21 | Outpatient (REF) | payer MEDICARE, BC | LOC: M SFHCADAM 09:16 | PROVIDERS: ATTEND Family Medicine | DX: R06.09 Other forms of dyspnea (principal) ==

== ENCOUNTER → 2022-10-21 | Outpatient (CLI) | payer MEDICARE, BC ==
[~2022-10-21] MED LIST changes: +FINA-48 PO; -PROS5TAB PO
[2022-10-21 17:20] LABS: HEMATOCRIT 34.9 % (42.0-52.0); HEMOGLOBIN 11.2 g/dl (13.5-17.5); MEAN CORPUSCULAR HEMOGLOBIN 28.9 pg (27.0-33.0); MEAN CORPUSCULAR HGB CONC 32.1 g/dl (32.0-36.5); MEAN CORPUSCULAR VOLUME 90.2 fl (80.0-96.0); PLATELET COUNT, AUTOMATED 234 10^3/uL (150-450); RED BLOOD COUNT 3.87 10^6/uL (4.30-6.10); WHITE BLOOD COUNT 7.1 10^3/uL (4.0-10.0)
== END ==
LOC: M WUC 11:06
PROVIDERS: ATTEND Family Medicine
DX: R06.09 Other forms of dyspnea (principal)

== ENCOUNTER → 2022-11-24 | Outpatient (CLI) | payer MEDICARE, BC | LOC: M RAD 12:41 | PROVIDERS: ATTEND Internal Medicine Cardiovascular Disease | DX: I65.29 Occlusion and stenosis of unspecified carotid artery (principal) ==

== ENCOUNTER → 2022-12-14 | Outpatient (CLI) | payer MEDICARE, BC ==
[2022-12-14 12:34] LABS: BASO # 0.1 10^3/uL (0.0-0.2); EOS # 0.4 10^3/uL (0.0-0.5); EOS % 5.2 % (0.0-3.0); HEMATOCRIT 35.6 % (42.0-52.0); HEMOGLOBIN 11.7 g/dl (13.5-17.5); LYMPH # 1.8 10^3/uL (1.5-5.0); LYMPH % 23.4 % (24.0-44.0); MEAN CORPUSCULAR HEMOGLOBIN 28.9 pg (27.0-33.0); MEAN CORPUSCULAR HGB CONC 32.9 g/dl (32.0-36.5); MEAN CORPUSCULAR VOLUME 87.9 fl (80.0-96.0); MONO # 0.8 10^3/uL (0.0-0.8); MONO % 9.7 % (2.0-8.0); NEUTROPHILS # 4.7 10^3/uL (1.5-8.5); NEUTROPHILS % 60.2 % (36.0-66.0); PLATELET COUNT, AUTOMATED 244 10^3/uL (150-450); RED BLOOD COUNT 4.05 10^6/uL (4.30-6.10); WHITE BLOOD COUNT 7.8 10^3/uL (4.0-10.0)
[2022-12-14 13:05] LABS: ALBUMIN 3.5 G/DL (3.2-5.2); BILIRUBIN,TOTAL 0.4 MG/DL (0.3-1.2); CALCIUM LEVEL 9.4 MG/DL (8.3-10.6); CHOLESTEROL RISK RATIO 5.77 (<5); CREATININE FOR GFR 2.66 MG/DL (0.70-1.30); GLOMERULAR FILTRATION RATE 25.1 (>42); HDL CHOLESTEROL 44.3 MG/DL (>40); LDL CHOLESTEROL 169.5 MG/DL (<100); NON-HDL-C 211.7 MG/DL; POTASSIUM SERUM 3.7 MMOL/L (3.5-5.1); TOTAL PROTEIN 6.7 G/DL (5.7-8.2)
== END ==
LOC: M WUC 09:28
PROVIDERS: ATTEND Internal Medicine Cardiovascular Disease
DX: E78.00 Pure hypercholesterolemia, unspecified (principal); R06.02 Shortness of breath; I35.1 Nonrheumatic aortic (valve) insufficiency; I25.119 Atherosclerotic heart disease of native coronary artery with unspecified angina pectoris; I11.9 Hypertensive heart disease without heart failure

== ENCOUNTER → 2023-01-03 | Outpatient (REF) | payer MEDICARE, BC | LOC: M LAB REF 18:12 | PROVIDERS: ATTEND Surgery | DX: L72.3 Sebaceous cyst (principal) ==

== ENCOUNTER → 2023-02-07 | Outpatient (REF) | payer MEDICARE, BC ==
[2023-02-07 15:25] LABS: CALCIUM LEVEL 8.8 MG/DL (8.3-10.6); CREATININE FOR GFR 3.52 MG/DL (0.70-1.30); GLOMERULAR FILTRATION RATE 18.2 (>42); POTASSIUM SERUM 4.6 MMOL/L (3.5-5.1)
== END ==
LOC: M SHH 14:25
PROVIDERS: ATTEND Nurse Practitioner Family
DX: I25.10 Atherosclerotic heart disease of native coronary artery without angina pectoris (principal)

== ENCOUNTER → 2023-03-02 | Outpatient (CLI) | payer MEDICARE, BC | LOC: M RAD 13:02 | PROVIDERS: ATTEND Physician Assistant | DX: I70.213 Atherosclerosis of native arteries of extremities with intermittent claudication, bilateral legs (principal) ==

== ENCOUNTER → 2023-03-11 | Outpatient (CLI) | payer MEDICARE, BC ==
[2023-03-14 19:23] LABS: PERCENT SATURATION 11.1 % (19.7-50.0)
== END ==
LOC: M RAD 09:40
PROVIDERS: ATTEND Nurse Practitioner Family
DX: M54.50 Low back pain, unspecified (principal); Z87.442 Personal history of urinary calculi; N20.0 Calculus of kidney; N13.30 Unspecified hydronephrosis; N28.1 Cyst of kidney, acquired; N40.0 Benign prostatic hyperplasia without lower urinary tract symptoms; M47.816 Spondylosis without myelopathy or radiculopathy, lumbar region; R31.9 Hematuria, unspecified; D50.9 Iron deficiency anemia, unspecified

== ENCOUNTER → 2023-03-24 | Outpatient (CLI) | payer MEDICARE, BC ==
[~2023-03-24] VITALS: Ht 165.1 cm; Wt 84.7 kg
[~2023-03-24] MED LIST changes: +ALBUTEROL SULFATE 2.5MG/0.5ML INH NEB SOLN INH PRN; +EPINEPHrine INJ 1 MG/ML 1ML AMP IM PRN; +IRON SUCROSE 25 MG in NS 23.75 ML IV ONE; +IRON SUCROSE 475 MG in NS 250 ML IV ONE; +IRON SUCROSE 500 MG in NS 250 ML OVER 4 HRS IV ONE; +NS 1,000 ML IV SCH; +diphenhydrAMINE 50MG/ML VIAL IV PRN; +methylPREDNISolone 125MG 2ML VIAL IV PRN
[2023-03-24 11:08] VITALS: BP 123/58; O2SAT 96
[2023-03-24 13:15] VITALS: BP 152/72; O2SAT 100
[2023-03-24 14:15] VITALS: BP 143/66; O2SAT 98
[2023-03-24 16:00] VITALS: BP 166/72; O2SAT 98
== END ==
LOC: M INFU 10:27
PROVIDERS: ATTEND Nurse Practitioner Family
DX: D50.9 Iron deficiency anemia, unspecified (principal); Z88.8 Allergy status to other drugs, medicaments and biological substances
CPT/HCPCS: 96365; 96366; J1756

== ENCOUNTER → 2023-03-29 | Outpatient (CLI) | payer MEDICARE, BC ==
[~2023-03-29] MED LIST changes: -ALBUTEROL SULFATE 2.5MG/0.5ML INH NEB SOLN INH PRN; -EPINEPHrine INJ 1 MG/ML 1ML AMP IM PRN; -IRON SUCROSE 25 MG in NS 23.75 ML IV ONE; -IRON SUCROSE 475 MG in NS 250 ML IV ONE; -IRON SUCROSE 500 MG in NS 250 ML OVER 4 HRS IV ONE; -NS 1,000 ML IV SCH; -diphenhydrAMINE 50MG/ML VIAL IV PRN; -methylPREDNISolone 125MG 2ML VIAL IV PRN
[2023-03-29 13:10] LABS: HEMATOCRIT 28.8 % (42.0-52.0); HEMOGLOBIN 9.2 g/dl (13.5-17.5); MEAN CORPUSCULAR HEMOGLOBIN 28.3 pg (27.0-33.0); MEAN CORPUSCULAR HGB CONC 31.9 g/dl (32.0-36.5); MEAN CORPUSCULAR VOLUME 88.6 fl (80.0-96.0); PLATELET COUNT, AUTOMATED 198 10^3/uL (150-450); RED BLOOD COUNT 3.25 10^6/uL (4.30-6.10); WHITE BLOOD COUNT 6.6 10^3/uL (4.0-10.0)
[2023-03-29 13:26] LABS: CREATININE, URINE 67.3 MG/DL
[2023-03-29 13:28] LABS: HEMOGLOBIN A1c 5.9 % (4.0-6.0)
[2023-03-29 13:53] LABS: ALBUMIN 3.4 G/DL (3.2-5.2); BILIRUBIN,TOTAL 0.3 MG/DL (0.3-1.2); CALCIUM LEVEL 8.8 MG/DL (8.3-10.6); CHOLESTEROL RISK RATIO 4.07 (<5); CREATININE FOR GFR 3.58 MG/DL (0.70-1.30); GLOMERULAR FILTRATION RATE 17.8 (>42); HDL CHOLESTEROL 42.2 MG/DL (>40); LDL CHOLESTEROL 98.4 MG/DL (<100); NON-HDL-C 129.8 MG/DL; POTASSIUM SERUM 4.1 MMOL/L (3.5-5.1); TOTAL PROTEIN 6.7 G/DL (5.7-8.2)
== END ==
LOC: M WUC 08:02
PROVIDERS: ATTEND Family Medicine
DX: E11.43 Type 2 diabetes mellitus with diabetic autonomic (poly)neuropathy (principal); D63.1 Anemia in chronic kidney disease; E78.2 Mixed hyperlipidemia; N18.4 Chronic kidney disease, stage 4 (severe); E11.22 Type 2 diabetes mellitus with diabetic chronic kidney disease

== ENCOUNTER 2023-04-07 09:50 | Outpatient (CLI) | payer MEDICARE, BC ==
[~2023-04-07] VITALS: Ht 167.6 cm; Wt 83.7 kg
[2023-04-07 09:50] VITALS: BP 123/60; O2SAT 99
[~2023-04-07 09:50] MED LIST changes: +ALBUTEROL SULFATE 2.5MG/0.5ML INH NEB SOLN INH PRN; +EPINEPHrine INJ 1 MG/ML 1ML AMP IM PRN; +NS 1,000 ML IV SCH; +diphenhydrAMINE 50MG/ML VIAL IV PRN; +methylPREDNISolone 125MG 2ML VIAL IV PRN
[2023-04-07] MEDS ORDERED: IRON SUCROSE 500 MG in NS 250 ML OVER 4 HRS IV ONE (10:00)
[2023-04-07 11:00] VITALS: BP 160/80; O2SAT 98
[2023-04-07 12:00] VITALS: BP 180/90; O2SAT 98
[2023-04-07 13:00] VITALS: BP 160/70; O2SAT 98
[2023-04-07 14:10] VITALS: BP 138/70; O2SAT 97
== END 2023-04-07 14:14 | disposition home or self-care (01) ==
LOC: M INFU 09:50
PROVIDERS: ATTEND Nurse Practitioner Family
DX: D50.9 Iron deficiency anemia, unspecified (principal); Z88.8 Allergy status to other drugs, medicaments and biological substances
CPT/HCPCS: 96365; 96366; J1756

== ENCOUNTER → 2023-05-06 | Outpatient (CLI) | payer MEDICARE, BC ==
[~2023-05-06] MED LIST changes: -ALBUTEROL SULFATE 2.5MG/0.5ML INH NEB SOLN INH PRN; -EPINEPHrine INJ 1 MG/ML 1ML AMP IM PRN; -NS 1,000 ML IV SCH; -diphenhydrAMINE 50MG/ML VIAL IV PRN; -methylPREDNISolone 125MG 2ML VIAL IV PRN
[2023-05-06 16:34] LABS: HEMATOCRIT 31.4 % (42.0-52.0); HEMOGLOBIN 10.3 g/dl (13.5-17.5); MEAN CORPUSCULAR HEMOGLOBIN 28.5 pg (27.0-33.0); MEAN CORPUSCULAR HGB CONC 32.8 g/dl (32.0-36.5); MEAN CORPUSCULAR VOLUME 86.7 fl (80.0-96.0); PLATELET COUNT, AUTOMATED 198 10^3/uL (150-450); RED BLOOD COUNT 3.62 10^6/uL (4.30-6.10); WHITE BLOOD COUNT 7.8 10^3/uL (4.0-10.0)
[2023-05-06 16:40] LABS: CALCIUM LEVEL 9.6 MG/DL (8.3-10.6); CREATININE FOR GFR 3.91 MG/DL (0.70-1.30); GLOMERULAR FILTRATION RATE 16.1 (>42); POTASSIUM SERUM 4.2 MMOL/L (3.5-5.1)
[2023-05-06 16:47] LABS: INR 1.1; PROTHROMBIN TIME 13.8 SECONDS (12.5-14.5)
== END ==
LOC: M WUC 11:21
PROVIDERS: ATTEND Physician Assistant
DX: Z01.818 Encounter for other preprocedural examination (principal); D69.8 Other specified hemorrhagic conditions; I70.213 Atherosclerosis of native arteries of extremities with intermittent claudication, bilateral legs

== ENCOUNTER → 2023-06-10 | Outpatient (CLI) | payer MEDICARE, BC ==
[2023-06-10 12:20] LABS: PLATELET COUNT, AUTOMATED 177 10^3/uL (150-450)
[2023-06-10 12:31] LABS: INR 1.22; PROTHROMBIN TIME 15.1 SECONDS (12.5-14.5)
[2023-06-10 12:32] LABS: PARTIAL THROMBOPLASTIN TIME 25.8 SECONDS (24.8-34.2)
== END ==
LOC: M WUC 11:28
PROVIDERS: ATTEND Physician Assistant Surgical
DX: Z01.818 Encounter for other preprocedural examination (principal); Z79.899 Other long term (current) drug therapy; Z79.01 Long term (current) use of anticoagulants

== ENCOUNTER → 2023-09-08 | Outpatient (CLI) | payer MEDICARE, BC ==
[~2023-09-08] MED LIST changes: +INDA2.5T2 PO; -INDA25TAB PO
[2023-09-08 12:43] LABS: ALBUMIN 3.6 G/DL (3.2-5.2); BILIRUBIN,TOTAL 0.3 MG/DL (0.3-1.2); CALCIUM LEVEL 9.4 MG/DL (8.3-10.6); CHOLESTEROL RISK RATIO 6.03 (<5); CREATININE FOR GFR 4.34 MG/DL (0.70-1.30); GLOMERULAR FILTRATION RATE 14.3 (>42); HDL CHOLESTEROL 45.2 MG/DL (>40); LDL CHOLESTEROL 190.6 MG/DL (<100); NON-HDL-C 227.8 MG/DL; POTASSIUM SERUM 4.1 MMOL/L (3.5-5.1); TOTAL PROTEIN 6.4 G/DL (5.7-8.2)
[2023-09-08 12:48] LABS: BASO # 0.1 10^3/uL (0.0-0.2); BASO % 0.8 % (0.0-1.0); EOS # 0.3 10^3/uL (0.0-0.5); EOS % 5.1 % (0.0-3.0); HEMATOCRIT 30.1 % (42.0-52.0); LYMPH # 1.4 10^3/uL (1.5-5.0); LYMPH % 21.9 % (24.0-44.0); MEAN CORPUSCULAR HEMOGLOBIN 30.6 pg (27.0-33.0); MEAN CORPUSCULAR HGB CONC 33.2 g/dl (32.0-36.5); MONO # 0.8 10^3/uL (0.0-0.8); MONO % 12.4 % (2.0-8.0); NEUTROPHILS # 3.7 10^3/uL (1.5-8.5); NEUTROPHILS % 59.5 % (36.0-66.0); PLATELET COUNT, AUTOMATED 186 10^3/uL (150-450); RED BLOOD COUNT 3.27 10^6/uL (4.30-6.10); WHITE BLOOD COUNT 6.3 10^3/uL (4.0-10.0)
== END ==
LOC: M WUC 09:29
PROVIDERS: ATTEND Internal Medicine Cardiovascular Disease
DX: E78.00 Pure hypercholesterolemia, unspecified (principal); R06.02 Shortness of breath; I35.1 Nonrheumatic aortic (valve) insufficiency; I25.119 Atherosclerotic heart disease of native coronary artery with unspecified angina pectoris; I11.9 Hypertensive heart disease without heart failure

== ENCOUNTER → 2023-09-27 | Outpatient (REF) | payer MEDICARE, BC ==
[2023-09-27 18:53] LABS: PERCENT SATURATION 24.3 % (19.7-50.0)
[2023-09-27 18:55] LABS: FERRITIN 224.6 NG/ML (10.5-307.3)
== END ==
LOC: M LAB REF 17:43
PROVIDERS: ATTEND Nurse Practitioner Family
DX: D50.9 Iron deficiency anemia, unspecified (principal)

== ENCOUNTER → 2023-11-07 | Outpatient (CLI) | payer MEDICARE, BC ==
[2023-11-07 11:57] LABS: HEMATOCRIT 27.2 % (42.0-52.0); MEAN CORPUSCULAR HEMOGLOBIN 30.6 pg (27.0-33.0); MEAN CORPUSCULAR HGB CONC 33.1 g/dl (32.0-36.5); MEAN CORPUSCULAR VOLUME 92.5 fl (80.0-96.0); PLATELET COUNT, AUTOMATED 158 10^3/uL (150-450); RED BLOOD COUNT 2.94 10^6/uL (4.30-6.10); WHITE BLOOD COUNT 6.8 10^3/uL (4.0-10.0)
[2023-11-07 12:02] LABS: ALBUMIN 3.5 G/DL (3.2-5.2); BILIRUBIN,TOTAL 0.2 MG/DL (0.3-1.2); CALCIUM LEVEL 9.4 MG/DL (8.3-10.6); CHOLESTEROL RISK RATIO 6.45 (<5); CREATININE FOR GFR 4.4 MG/DL (0.70-1.30); HDL CHOLESTEROL 38.9 MG/DL (>40); LDL CHOLESTEROL 173.7 MG/DL (<100); NON-HDL-C 212.1 MG/DL; POTASSIUM SERUM 3.6 MMOL/L (3.5-5.1)
[2023-11-07 12:09] LABS: HEMOGLOBIN A1c 6.5 % (4.0-6.0)
== END ==
LOC: M WUC 08:10
PROVIDERS: ATTEND Family Medicine
DX: E11.22 Type 2 diabetes mellitus with diabetic chronic kidney disease (principal); N18.4 Chronic kidney disease, stage 4 (severe); Z95.1 Presence of aortocoronary bypass graft

== ENCOUNTER → 2023-12-28 | Outpatient (CLI) | payer MEDICARE, BC ==
[2023-12-28 11:23] LABS: PLATELET COUNT, AUTOMATED 162 10^3/uL (150-450)
[2023-12-28 11:39] LABS: INR 1.23; PARTIAL THROMBOPLASTIN TIME 27.2 SECONDS (24.8-34.2); PROTHROMBIN TIME 15.1 SECONDS (12.5-14.5)
== END ==
LOC: M WUC 09:58
PROVIDERS: ATTEND Physician Assistant Surgical
DX: Z01.812 Encounter for preprocedural laboratory examination (principal); Z79.01 Long term (current) use of anticoagulants

== ENCOUNTER → 2024-04-03 | Outpatient (CLI) | payer MEDICARE, BC ==
[2024-04-03 11:20] LABS: BLOOD UREA NITROGEN 24 MG/DL (9-23); CALCIUM LEVEL 9.3 MG/DL (8.3-10.6); CARBON DIOXIDE LEVEL 30 MMOL/L (20-31); CHLORIDE LEVEL 105 MMOL/L (98-107); CREATININE FOR GFR 1.18 MG/DL (0.70-1.30); GLOMERULAR FILTRATION RATE > 60.0 (>42); GLUCOSE, FASTING 72 MG/DL (74-106); POTASSIUM SERUM 3.9 MMOL/L (3.5-5.1); SODIUM LEVEL 141 MMOL/L (136-145)
[2024-04-03 11:43] LABS: HEMOGLOBIN A1c 6.3 % (4.0-6.0)
== END ==
LOC: M WUC 08:18
PROVIDERS: ATTEND Family Medicine
DX: E11.22 Type 2 diabetes mellitus with diabetic chronic kidney disease (principal)

== ENCOUNTER → 2024-05-20 | Outpatient (CLI) | payer MEDICARE, BC ==
[2024-05-20 08:44] LABS: HEMATOCRIT 35.4 % (42.0-52.0); HEMOGLOBIN 11.5 g/dl (13.5-17.5); MEAN CORPUSCULAR HGB CONC 32.5 g/dl (32.0-36.5); MEAN CORPUSCULAR VOLUME 89.2 fl (80.0-96.0); PLATELET COUNT, AUTOMATED 202 10^3/uL (150-450); RED BLOOD COUNT 3.97 10^6/uL (4.30-6.10); WHITE BLOOD COUNT 2.8 10^3/uL (4.0-10.0)
[2024-05-20 08:48] LABS: APPEARANCE, URINE HAZY (CLEAR); BACTERIA, URINE AUTO 1+ (NEGATIVE); BILIRUBIN, URINE AUTO NEGATIVE (NEGATIVE); BLOOD, URINE BLOOD NEGATIVE (NEGATIVE); COLOR, URINE YELLOW (YELLOW); GLUCOSE, URINE (UA) AUTO NEGATIVE (NEGATIVE); KETONE, URINE AUTO NEGATIVE (NEGATIVE); LEUKOCYTE ESTERASE, URINE AUTO NEGATIVE (NEGATIVE); MUCUS, URINE SMALL (NEGATIVE); NITRITE, URINE AUTO NEGATIVE (NEGATIVE); PROTEIN, URINE AUTO NEGATIVE (NEGATIVE); RBC, URINE AUTO 1 /HPF (0-3); SPECIFIC GRAVITY URINE AUTO 1.009 (1.002-1.035); SQUAMOUS EPITHELIAL CELL UR AU 0 /HPF (0-6); UROBILINOGEN, URINE AUTO 0.2 mg/dL (0.0-2.0); WBC, URINE AUTO 14 /HPF (0-3)
[2024-05-20 09:01] LABS: TOTAL PROTEIN,RANDOM URINE 16.3 MG/DL (0.0-14.0)
[2024-05-20 09:06] LABS: CREATININE,RANDOM URINE 70.2 MG/DL
[2024-05-20 09:07] LABS: ALBUMIN 3.6 G/DL (3.2-5.2); BILIRUBIN,TOTAL 0.4 MG/DL (0.3-1.2); CALCIUM LEVEL 9.2 MG/DL (8.3-10.6); CREATININE FOR GFR 1.51 MG/DL (0.70-1.30); GLOMERULAR FILTRATION RATE 48.1 (>42); MAGNESIUM LEVEL 1.5 MG/DL (1.8-2.4); PHOSPHORUS LEVEL 4.5 MG/DL (2.4-5.1); POTASSIUM SERUM 3.3 MMOL/L (3.5-5.1); TOTAL PROTEIN 6.9 G/DL (5.7-8.2)
[2024-05-20 09:19] LABS: ATYPICAL LYMPH 12 % (0-5); BASOPHILS 5 % (0-1); LYMPHOCYTES 23 % (16-44); MONOCYTES 8 % (0-5); NEUTROPHILS 52 % (28-66)
[2024-05-20 09:21] LABS: HYPERSEGMENTED POLYS 1+
[2024-05-20 09:26] LABS: ANISOCYTOSIS 1+; PLATELET ESTIMATE NORMAL (NORMAL)
[2024-05-20 09:27] LABS: TEAR DROP CELLS 1+
[2024-05-20 09:28] LABS: POIKILOCYTOSIS 1+; SCHISTOCYTES 1+
[2024-05-20 09:29] LABS: PLATELET CLUMPS SMALL AMT
[2024-05-20 09:30] LABS: OVALOCYTES 1+
== END ==
LOC: M LAB 08:05
PROVIDERS: ATTEND Internal Medicine
DX: Z94.0 Kidney transplant status (principal)

== ENCOUNTER → 2024-05-28 | Outpatient (CLI) | payer MEDICARE, BC ==
[2024-05-28 08:01] LABS: HEMATOCRIT 33.6 % (42.0-52.0); HEMOGLOBIN 11.3 g/dl (13.5-17.5); MEAN CORPUSCULAR HEMOGLOBIN 29.8 pg (27.0-33.0); MEAN CORPUSCULAR HGB CONC 33.6 g/dl (32.0-36.5); MEAN CORPUSCULAR VOLUME 88.7 fl (80.0-96.0); PLATELET COUNT, AUTOMATED 171 10^3/uL (150-450); RED BLOOD COUNT 3.79 10^6/uL (4.30-6.10); WHITE BLOOD COUNT 3.7 10^3/uL (4.0-10.0)
[2024-05-28 08:11] LABS: TOTAL PROTEIN,RANDOM URINE 20.9 MG/DL (0.0-14.0)
[2024-05-28 08:12] LABS: APPEARANCE, URINE HAZY (CLEAR); BACTERIA, URINE AUTO NEGATIVE (NEGATIVE); BILIRUBIN, URINE AUTO NEGATIVE (NEGATIVE); BLOOD, URINE BLOOD NEGATIVE (NEGATIVE); COLOR, URINE YELLOW (YELLOW); GLUCOSE, URINE (UA) AUTO NEGATIVE (NEGATIVE); KETONE, URINE AUTO NEGATIVE (NEGATIVE); LEUKOCYTE ESTERASE, URINE AUTO NEGATIVE (NEGATIVE); MUCUS, URINE SMALL (NEGATIVE); NITRITE, URINE AUTO NEGATIVE (NEGATIVE); PROTEIN, URINE AUTO NEGATIVE (NEGATIVE); RBC, URINE AUTO 0 /HPF (0-3); SPECIFIC GRAVITY URINE AUTO 1.011 (1.002-1.035); SQUAMOUS EPITHELIAL CELL UR AU 0 /HPF (0-6); UROBILINOGEN, URINE AUTO 0.2 mg/dL (0.0-2.0); WBC, URINE AUTO 16 /HPF (0-3)
[2024-05-28 08:16] LABS: CREATININE,RANDOM URINE 70.8 MG/DL
[2024-05-28 08:29] LABS: ALBUMIN 3.2 G/DL (3.2-5.2); BILIRUBIN,TOTAL 0.5 MG/DL (0.3-1.2); CALCIUM LEVEL 9.3 MG/DL (8.3-10.6); CREATININE FOR GFR 1.38 MG/DL (0.70-1.30); GLOMERULAR FILTRATION RATE 53.3 (>42); MAGNESIUM LEVEL 1.6 MG/DL (1.8-2.4); POTASSIUM SERUM 3.6 MMOL/L (3.5-5.1)
[2024-05-28 09:16] LABS: ATYPICAL LYMPH 1 % (0-5); BASOPHILS 3 % (0-1); EOSINOPHILS 1 % (0-3); LYMPHOCYTES 19 % (16-44); MONOCYTES 26 % (0-5); NEUTROPHILS 50 % (28-66)
[2024-05-28 09:17] LABS: ANISOCYTOSIS 1+; PLATELET ESTIMATE NORMAL (NORMAL); POIKILOCYTOSIS 1+
== END ==
LOC: M LAB 07:16
PROVIDERS: ATTEND Internal Medicine
DX: Z94.0 Kidney transplant status (principal); D84.9 Immunodeficiency, unspecified; N18.5 Chronic kidney disease, stage 5; Z79.899 Other long term (current) drug therapy

== ENCOUNTER → 2024-06-04 | Outpatient (CLI) | payer MEDICARE, BC ==
[2024-06-04 08:09] LABS: HEMATOCRIT 33.6 % (42.0-52.0); HEMOGLOBIN 10.8 g/dl (13.5-17.5); MEAN CORPUSCULAR HGB CONC 32.1 g/dl (32.0-36.5); MEAN CORPUSCULAR VOLUME 90.1 fl (80.0-96.0); PLATELET COUNT, AUTOMATED 168 10^3/uL (150-450); RED BLOOD COUNT 3.73 10^6/uL (4.30-6.10); WHITE BLOOD COUNT 4.3 10^3/uL (4.0-10.0)
[2024-06-04 08:11] LABS: APPEARANCE, URINE CLEAR (CLEAR); BACTERIA, URINE AUTO NEGATIVE (NEGATIVE); BILIRUBIN, URINE AUTO NEGATIVE (NEGATIVE); BLOOD, URINE BLOOD NEGATIVE (NEGATIVE); COLOR, URINE YELLOW (YELLOW); GLUCOSE, URINE (UA) AUTO NEGATIVE (NEGATIVE); KETONE, URINE AUTO NEGATIVE (NEGATIVE); LEUKOCYTE ESTERASE, URINE AUTO NEGATIVE (NEGATIVE); NITRITE, URINE AUTO NEGATIVE (NEGATIVE); PROTEIN, URINE AUTO NEGATIVE (NEGATIVE); RBC, URINE AUTO 1 /HPF (0-3); SQUAMOUS EPITHELIAL CELL UR AU 0 /HPF (0-6); UROBILINOGEN, URINE AUTO 0.2 mg/dL (0.0-2.0); WBC, URINE AUTO 9 /HPF (0-3)
[2024-06-04 08:35] LABS: TOTAL PROTEIN,RANDOM URINE 24.2 MG/DL (0.0-14.0)
[2024-06-04 08:40] LABS: CREATININE,RANDOM URINE 62.1 MG/DL
[2024-06-04 08:41] LABS: ALBUMIN 3.3 G/DL (3.2-5.2); BILIRUBIN,TOTAL 0.6 MG/DL (0.3-1.2); CALCIUM LEVEL 9.2 MG/DL (8.3-10.6); CREATININE FOR GFR 1.3 MG/DL (0.70-1.30); GLOMERULAR FILTRATION RATE 57.1 (>42); MAGNESIUM LEVEL 1.8 MG/DL (1.8-2.4); PHOSPHORUS LEVEL 3.9 MG/DL (2.4-5.1); POTASSIUM SERUM 3.5 MMOL/L (3.5-5.1); TOTAL PROTEIN 6.8 G/DL (5.7-8.2)
[2024-06-04 08:53] LABS: ATYPICAL LYMPH 5 % (0-5); BASOPHILS 1 % (0-1); EOSINOPHILS 3 % (0-3); LYMPHOCYTES 18 % (16-44); MONOCYTES 14 % (0-5); NEUTROPHILS 59 % (28-66); PLATELET ESTIMATE NORMAL (NORMAL); POIKILOCYTOSIS 1+; POLYCHROMASIA 1+
== END ==
LOC: M LAB 07:13
PROVIDERS: ATTEND Internal Medicine
DX: Z94.0 Kidney transplant status (principal); D84.9 Immunodeficiency, unspecified; Z79.899 Other long term (current) drug therapy; N18.5 Chronic kidney disease, stage 5

== ENCOUNTER → 2024-06-10 | Outpatient (CLI) | payer MEDICARE, BC ==
[2024-06-10 09:04] LABS: APPEARANCE, URINE CLEAR (CLEAR); BACTERIA, URINE AUTO NEGATIVE (NEGATIVE); BILIRUBIN, URINE AUTO NEGATIVE (NEGATIVE); BLOOD, URINE BLOOD NEGATIVE (NEGATIVE); COLOR, URINE YELLOW (YELLOW); GLUCOSE, URINE (UA) AUTO NEGATIVE (NEGATIVE); HEMOGLOBIN 10.6 g/dl (13.5-17.5); KETONE, URINE AUTO NEGATIVE (NEGATIVE); LEUKOCYTE ESTERASE, URINE AUTO NEGATIVE (NEGATIVE); MEAN CORPUSCULAR HEMOGLOBIN 29.9 pg (27.0-33.0); MEAN CORPUSCULAR HGB CONC 33.1 g/dl (32.0-36.5); MEAN CORPUSCULAR VOLUME 90.4 fl (80.0-96.0); NITRITE, URINE AUTO NEGATIVE (NEGATIVE); PLATELET COUNT, AUTOMATED 118 10^3/uL (150-450); PROTEIN, URINE AUTO 1+ mg/dL (NEGATIVE); RBC, URINE AUTO 1 /HPF (0-3); RED BLOOD COUNT 3.54 10^6/uL (4.30-6.10); SQUAMOUS EPITHELIAL CELL UR AU 0 /HPF (0-6); UROBILINOGEN, URINE AUTO 0.2 mg/dL (0.0-2.0); WBC, URINE AUTO 2 /HPF (0-3); WHITE BLOOD COUNT 4.1 10^3/uL (4.0-10.0)
[2024-06-10 09:21] LABS: BASOPHILS 2 % (0-1); EOSINOPHILS 3 % (0-3); LYMPHOCYTES 9 % (16-44); MONOCYTES 12 % (0-5); NEUTROPHILS 74 % (28-66); PLATELET ESTIMATE DECREASED (NORMAL)
[2024-06-10 09:22] LABS: ANISOCYTOSIS 1+; POLYCHROMASIA 1+; TOTAL PROTEIN,RANDOM URINE 35.3 MG/DL (0.0-14.0)
[2024-06-10 09:28] LABS: ALKALINE PHOSPHATASE 56 U/L (40-129); ALT/SGPT 21 U/L (7.0-40); AST/SGOT 22 U/L (<34); BILIRUBIN,TOTAL 0.6 MG/DL (0.3-1.2); BLOOD UREA NITROGEN 24 MG/DL (9-23); CALCIUM LEVEL 8.8 MG/DL (8.3-10.6); CARBON DIOXIDE LEVEL 30 MMOL/L (20-31); CHLORIDE LEVEL 105 MMOL/L (98-107); CREATININE FOR GFR 1.22 MG/DL (0.70-1.30); CREATININE,RANDOM URINE 55.1 MG/DL; GLOMERULAR FILTRATION RATE > 60.0 (>42); GLUCOSE, FASTING 151 MG/DL (74-106); MAGNESIUM LEVEL 1.8 MG/DL (1.8-2.4); PHOSPHORUS LEVEL 3.6 MG/DL (2.4-5.1); POTASSIUM SERUM 4.3 MMOL/L (3.5-5.1); SODIUM LEVEL 142 MMOL/L (136-145)
== END ==
LOC: M LAB 08:15
PROVIDERS: ATTEND Internal Medicine
DX: N18.5 Chronic kidney disease, stage 5 (principal); Z94.0 Kidney transplant status; D84.9 Immunodeficiency, unspecified; Z79.899 Other long term (current) drug therapy

== ENCOUNTER → 2024-06-17 | Outpatient (CLI) | payer MEDICARE, BC ==
[2024-06-17 08:47] LABS: BASO % 0.6 % (0.0-1.0); EOS # 0.1 10^3/uL (0.0-0.5); EOS % 1.2 % (0.0-3.0); HEMATOCRIT 33.2 % (42.0-52.0); HEMOGLOBIN 11.2 g/dl (13.5-17.5); LYMPH # 0.8 10^3/uL (1.5-5.0); LYMPH % 16.4 % (24.0-44.0); MEAN CORPUSCULAR HEMOGLOBIN 30.6 pg (27.0-33.0); MEAN CORPUSCULAR HGB CONC 33.7 g/dl (32.0-36.5); MEAN CORPUSCULAR VOLUME 90.7 fl (80.0-96.0); MONO # 0.7 10^3/uL (0.0-0.8); MONO % 14.9 % (2.0-8.0); NEUTROPHILS # 3.1 10^3/uL (1.5-8.5); PLATELET COUNT, AUTOMATED 140 10^3/uL (150-450); RED BLOOD COUNT 3.66 10^6/uL (4.30-6.10); WHITE BLOOD COUNT 4.8 10^3/uL (4.0-10.0)
[2024-06-17 08:51] LABS: APPEARANCE, URINE CLEAR (CLEAR); BACTERIA, URINE AUTO NEGATIVE (NEGATIVE); BILIRUBIN, URINE AUTO NEGATIVE (NEGATIVE); BLOOD, URINE BLOOD 1+ (NEGATIVE); COLOR, URINE YELLOW (YELLOW); GLUCOSE, URINE (UA) AUTO NEGATIVE (NEGATIVE); GRANULAR CAST, URINE AUTO 3 /LPF; KETONE, URINE AUTO NEGATIVE (NEGATIVE); LEUKOCYTE ESTERASE, URINE AUTO NEGATIVE (NEGATIVE); MUCUS, URINE SMALL (NEGATIVE); NITRITE, URINE AUTO NEGATIVE (NEGATIVE); PROTEIN, URINE AUTO NEGATIVE (NEGATIVE); RBC, URINE AUTO 2 /HPF (0-3); SPECIFIC GRAVITY URINE AUTO 1.011 (1.002-1.035); SQUAMOUS EPITHELIAL CELL UR AU 0 /HPF (0-6); UROBILINOGEN, URINE AUTO 0.2 mg/dL (0.0-2.0); WBC, URINE AUTO 2 /HPF (0-3)
[2024-06-17 09:09] LABS: CREATININE,RANDOM URINE 77.7 MG/DL
[2024-06-17 09:11] LABS: ALBUMIN 3.2 G/DL (3.2-5.2); BILIRUBIN,TOTAL 0.7 MG/DL (0.3-1.2); CALCIUM LEVEL 8.8 MG/DL (8.3-10.6); CREATININE FOR GFR 1.31 MG/DL (0.70-1.30); GLOMERULAR FILTRATION RATE 56.6 (>42); MAGNESIUM LEVEL 1.8 MG/DL (1.8-2.4); PHOSPHORUS LEVEL 3.7 MG/DL (2.4-5.1); POTASSIUM SERUM 3.4 MMOL/L (3.5-5.1); TOTAL PROTEIN 7.1 G/DL (5.7-8.2)
[2024-06-17 09:56] LABS: TOTAL PROTEIN,RANDOM URINE 18.9 MG/DL (0.0-14.0)
[2024-06-19 19:33] LABS: BK VIRUS DNA SOURCE Plasma; BKV DNA QUANT PCR PLASMA 220554 copies/mL; log10 BKV DNA PLASMA 5.34 Log cps/mL
== END ==
LOC: M LAB 08:11
PROVIDERS: ATTEND Internal Medicine
DX: Z94.0 Kidney transplant status (principal); D84.9 Immunodeficiency, unspecified; Z79.899 Other long term (current) drug therapy

== ENCOUNTER → 2024-06-24 | Outpatient (CLI) | payer MEDICARE, BC ==
[2024-06-24 09:12] LABS: BASO % 0.9 % (0.0-1.0); EOS # 0.1 10^3/uL (0.0-0.5); EOS % 1.6 % (0.0-3.0); HEMATOCRIT 32.5 % (42.0-52.0); HEMOGLOBIN 10.9 g/dl (13.5-17.5); LYMPH # 0.6 10^3/uL (1.5-5.0); LYMPH % 18.2 % (24.0-44.0); MEAN CORPUSCULAR HEMOGLOBIN 31.1 pg (27.0-33.0); MEAN CORPUSCULAR HGB CONC 33.5 g/dl (32.0-36.5); MEAN CORPUSCULAR VOLUME 92.9 fl (80.0-96.0); MONO # 0.5 10^3/uL (0.0-0.8); MONO % 16.7 % (2.0-8.0); NEUTROPHILS # 1.9 10^3/uL (1.5-8.5); NEUTROPHILS % 58.5 % (36.0-66.0); PLATELET COUNT, AUTOMATED 138 10^3/uL (150-450); WHITE BLOOD COUNT 3.2 10^3/uL (4.0-10.0)
[2024-06-24 09:16] LABS: APPEARANCE, URINE CLEAR (CLEAR); BACTERIA, URINE AUTO NEGATIVE (NEGATIVE); BILIRUBIN, URINE AUTO NEGATIVE (NEGATIVE); BLOOD, URINE BLOOD NEGATIVE (NEGATIVE); COLOR, URINE YELLOW (YELLOW); GLUCOSE, URINE (UA) AUTO NEGATIVE (NEGATIVE); KETONE, URINE AUTO NEGATIVE (NEGATIVE); LEUKOCYTE ESTERASE, URINE AUTO NEGATIVE (NEGATIVE); MUCUS, URINE SMALL (NEGATIVE); NITRITE, URINE AUTO NEGATIVE (NEGATIVE); PROTEIN, URINE AUTO NEGATIVE (NEGATIVE); RBC, URINE AUTO 1 /HPF (0-3); SPECIFIC GRAVITY URINE AUTO 1.011 (1.002-1.035); SQUAMOUS EPITHELIAL CELL UR AU 0 /HPF (0-6); UROBILINOGEN, URINE AUTO 0.2 mg/dL (0.0-2.0); WBC, URINE AUTO 1 /HPF (0-3)
[2024-06-24 09:30] LABS: TOTAL PROTEIN,RANDOM URINE 19.2 MG/DL (0.0-14.0)
[2024-06-24 09:36] LABS: ALBUMIN 2.9 G/DL (3.2-5.2); BILIRUBIN,TOTAL 0.7 MG/DL (0.3-1.2); CALCIUM LEVEL 8.7 MG/DL (8.3-10.6); CREATININE FOR GFR 1.25 MG/DL (0.70-1.30); GLOMERULAR FILTRATION RATE 59.8 (>42); MAGNESIUM LEVEL 1.7 MG/DL (1.8-2.4); PHOSPHORUS LEVEL 3.8 MG/DL (2.4-5.1); POTASSIUM SERUM 3.4 MMOL/L (3.5-5.1); TOTAL PROTEIN 7.4 G/DL (5.7-8.2)
[2024-06-27 12:57] LABS: BK VIRUS DNA SOURCE Plasma; BKV DNA QUANT PCR PLASMA 144265 copies/mL; log10 BKV DNA PLASMA 5.16 Log cps/mL
== END ==
LOC: M LAB 08:09
PROVIDERS: ATTEND Internal Medicine
DX: Z94.0 Kidney transplant status (principal); N18.5 Chronic kidney disease, stage 5; D84.9 Immunodeficiency, unspecified; Z79.899 Other long term (current) drug therapy

== ENCOUNTER → 2024-07-02 | Outpatient (CLI) | payer MEDICARE, BC ==
[2024-07-02 08:52] LABS: BASO % 0.7 % (0.0-1.0); EOS # 0.1 10^3/uL (0.0-0.5); EOS % 1.4 % (0.0-3.0); HEMATOCRIT 32.3 % (42.0-52.0); HEMOGLOBIN 10.9 g/dl (13.5-17.5); LYMPH # 1.4 10^3/uL (1.5-5.0); LYMPH % 33.6 % (24.0-44.0); MEAN CORPUSCULAR HEMOGLOBIN 31.3 pg (27.0-33.0); MEAN CORPUSCULAR HGB CONC 33.7 g/dl (32.0-36.5); MEAN CORPUSCULAR VOLUME 92.8 fl (80.0-96.0); MONO # 0.4 10^3/uL (0.0-0.8); MONO % 10.3 % (2.0-8.0); NEUTROPHILS # 2.3 10^3/uL (1.5-8.5); NEUTROPHILS % 53.1 % (36.0-66.0); PLATELET COUNT, AUTOMATED 140 10^3/uL (150-450); RED BLOOD COUNT 3.48 10^6/uL (4.30-6.10); WHITE BLOOD COUNT 4.3 10^3/uL (4.0-10.0)
[2024-07-02 08:53] LABS: APPEARANCE, URINE CLEAR (CLEAR); BACTERIA, URINE AUTO NEGATIVE (NEGATIVE); BILIRUBIN, URINE AUTO NEGATIVE (NEGATIVE); BLOOD, URINE BLOOD NEGATIVE (NEGATIVE); COLOR, URINE YELLOW (YELLOW); GLUCOSE, URINE (UA) AUTO NEGATIVE (NEGATIVE); KETONE, URINE AUTO NEGATIVE (NEGATIVE); LEUKOCYTE ESTERASE, URINE AUTO NEGATIVE (NEGATIVE); NITRITE, URINE AUTO NEGATIVE (NEGATIVE); PROTEIN, URINE AUTO NEGATIVE (NEGATIVE); RBC, URINE AUTO 1 /HPF (0-3); SPECIFIC GRAVITY URINE AUTO 1.014 (1.002-1.035); SQUAMOUS EPITHELIAL CELL UR AU 0 /HPF (0-6); WBC, URINE AUTO 1 /HPF (0-3)
[2024-07-02 09:20] LABS: TOTAL PROTEIN,RANDOM URINE 30.1 MG/DL (0.0-14.0)
[2024-07-02 09:26] LABS: BILIRUBIN,TOTAL 0.7 MG/DL (0.3-1.2); CALCIUM LEVEL 9.1 MG/DL (8.3-10.6); CREATININE FOR GFR 1.29 MG/DL (0.70-1.30); GLOMERULAR FILTRATION RATE 57.6 (>42); PHOSPHORUS LEVEL 3.8 MG/DL (2.4-5.1); POTASSIUM SERUM 3.8 MMOL/L (3.5-5.1); TOTAL PROTEIN 7.1 G/DL (5.7-8.2)
[2024-07-05 12:57] LABS: BK VIRUS DNA SOURCE Plasma; BKV DNA QUANT PCR PLASMA 125230 copies/mL
== END ==
LOC: M LAB 07:51
PROVIDERS: ATTEND Internal Medicine
DX: Z94.0 Kidney transplant status (principal); N18.5 Chronic kidney disease, stage 5; D84.9 Immunodeficiency, unspecified; Z79.899 Other long term (current) drug therapy

== ENCOUNTER → 2024-07-08 | Outpatient (CLI) | payer MEDICARE, BC ==
[2024-07-08 09:03] LABS: BASO # 0.1 10^3/uL (0.0-0.2); BASO % 1.3 % (0.0-1.0); HEMATOCRIT 30.7 % (42.0-52.0); HEMOGLOBIN 10.6 g/dl (13.5-17.5); LYMPH # 1.7 10^3/uL (1.5-5.0); LYMPH % 42.7 % (24.0-44.0); MEAN CORPUSCULAR HGB CONC 34.5 g/dl (32.0-36.5); MEAN CORPUSCULAR VOLUME 92.7 fl (80.0-96.0); MONO # 0.5 10^3/uL (0.0-0.8); MONO % 11.3 % (2.0-8.0); NEUTROPHILS # 1.7 10^3/uL (1.5-8.5); NEUTROPHILS % 42.2 % (36.0-66.0); PLATELET COUNT, AUTOMATED 149 10^3/uL (150-450); RED BLOOD COUNT 3.31 10^6/uL (4.30-6.10)
[2024-07-08 09:20] LABS: APPEARANCE, URINE CLEAR (CLEAR); BACTERIA, URINE AUTO NEGATIVE (NEGATIVE); BILIRUBIN, URINE AUTO NEGATIVE (NEGATIVE); BLOOD, URINE BLOOD NEGATIVE (NEGATIVE); COLOR, URINE YELLOW (YELLOW); GLUCOSE, URINE (UA) AUTO NEGATIVE (NEGATIVE); KETONE, URINE AUTO NEGATIVE (NEGATIVE); LEUKOCYTE ESTERASE, URINE AUTO NEGATIVE (NEGATIVE); NITRITE, URINE AUTO NEGATIVE (NEGATIVE); PROTEIN, URINE AUTO NEGATIVE (NEGATIVE); RBC, URINE AUTO 1 /HPF (0-3); SPECIFIC GRAVITY URINE AUTO 1.013 (1.002-1.035); SQUAMOUS EPITHELIAL CELL UR AU 0 /HPF (0-6); WBC, URINE AUTO 1 /HPF (0-3)
[2024-07-08 09:43] LABS: TOTAL PROTEIN,RANDOM URINE 37.5 MG/DL (0.0-14.0)
[2024-07-08 09:48] LABS: CREATININE,RANDOM URINE 76.5 MG/DL
[2024-07-08 09:49] LABS: ALKALINE PHOSPHATASE 59 U/L (40-129); ALT/SGPT 24 U/L (7.0-40); AST/SGOT 28 U/L (<34); BILIRUBIN,TOTAL 0.8 MG/DL (0.3-1.2); BLOOD UREA NITROGEN 30 MG/DL (9-23); CARBON DIOXIDE LEVEL 28 MMOL/L (20-31); CHLORIDE LEVEL 105 MMOL/L (98-107); GLOMERULAR FILTRATION RATE > 60.0 (>42); GLUCOSE, FASTING 145 MG/DL (74-106); MAGNESIUM LEVEL 1.8 MG/DL (1.8-2.4); PHOSPHORUS LEVEL 3.2 MG/DL (2.4-5.1); POTASSIUM SERUM 3.8 MMOL/L (3.5-5.1); SODIUM LEVEL 142 MMOL/L (136-145); TOTAL PROTEIN 7.6 G/DL (5.7-8.2)
[2024-07-11 13:32] LABS: BK VIRUS DNA SOURCE Plasma; BKV DNA QUANT PCR PLASMA 191453 copies/mL; log10 BKV DNA PLASMA 5.28 Log cps/mL
== END ==
LOC: M LAB 08:07
PROVIDERS: ATTEND Internal Medicine
DX: Z94.0 Kidney transplant status (principal); D84.9 Immunodeficiency, unspecified; Z79.899 Other long term (current) drug therapy; N18.5 Chronic kidney disease, stage 5

== ENCOUNTER → 2024-07-15 | Outpatient (CLI) | payer MEDICARE, BC ==
[2024-07-15 08:45] LABS: BASO % 0.9 % (0.0-1.0); EOS % 0.7 % (0.0-3.0); HEMOGLOBIN 10.9 g/dl (13.5-17.5); LYMPH # 1.7 10^3/uL (1.5-5.0); LYMPH % 40.4 % (24.0-44.0); MEAN CORPUSCULAR HEMOGLOBIN 32.3 pg (27.0-33.0); MEAN CORPUSCULAR HGB CONC 34.1 g/dl (32.0-36.5); MONO # 0.5 10^3/uL (0.0-0.8); MONO % 11.7 % (2.0-8.0); NEUTROPHILS % 45.6 % (36.0-66.0); PLATELET COUNT, AUTOMATED 172 10^3/uL (150-450); RED BLOOD COUNT 3.37 10^6/uL (4.30-6.10); WHITE BLOOD COUNT 4.3 10^3/uL (4.0-10.0)
[2024-07-15 08:53] LABS: APPEARANCE, URINE CLEAR (CLEAR); BACTERIA, URINE AUTO NEGATIVE (NEGATIVE); BILIRUBIN, URINE AUTO NEGATIVE (NEGATIVE); BLOOD, URINE BLOOD NEGATIVE (NEGATIVE); COLOR, URINE YELLOW (YELLOW); GLUCOSE, URINE (UA) AUTO NEGATIVE (NEGATIVE); KETONE, URINE AUTO NEGATIVE (NEGATIVE); LEUKOCYTE ESTERASE, URINE AUTO NEGATIVE (NEGATIVE); MUCUS, URINE SMALL (NEGATIVE); NITRITE, URINE AUTO NEGATIVE (NEGATIVE); PROTEIN, URINE AUTO NEGATIVE (NEGATIVE); RBC, URINE AUTO 0 /HPF (0-3); SPECIFIC GRAVITY URINE AUTO 1.013 (1.002-1.035); SQUAMOUS EPITHELIAL CELL UR AU 0 /HPF (0-6); WBC, URINE AUTO 2 /HPF (0-3)
[2024-07-15 09:05] LABS: TOTAL PROTEIN,RANDOM URINE 27.5 MG/DL (0.0-14.0)
[2024-07-15 09:11] LABS: ALKALINE PHOSPHATASE 56 U/L (40-129); ALT/SGPT 20 U/L (7.0-40); AST/SGOT 21 U/L (<34); BILIRUBIN,TOTAL 0.7 MG/DL (0.3-1.2); BLOOD UREA NITROGEN 27 MG/DL (9-23); CALCIUM LEVEL 9.3 MG/DL (8.3-10.6); CARBON DIOXIDE LEVEL 30 MMOL/L (20-31); CHLORIDE LEVEL 104 MMOL/L (98-107); CREATININE FOR GFR 1.23 MG/DL (0.70-1.30); GLOMERULAR FILTRATION RATE > 60.0 (>42); GLUCOSE, FASTING 132 MG/DL (74-106); PHOSPHORUS LEVEL 3.8 MG/DL (2.4-5.1); POTASSIUM SERUM 3.6 MMOL/L (3.5-5.1); SODIUM LEVEL 142 MMOL/L (136-145); TOTAL PROTEIN 7.3 G/DL (5.7-8.2)
[2024-07-15 09:11] LABS: CREATININE,RANDOM URINE 89.7 MG/DL
[2024-07-18 02:24] LABS: BK VIRUS DNA SOURCE Plasma; log10 BKV DNA PLASMA 4.88 Log cps/mL
[2024-07-18 07:41] LABS: CYCLOSPORINE OTHER LAB 116 ng/ml
== END ==
LOC: M LAB 08:07
PROVIDERS: ATTEND Internal Medicine
DX: Z94.0 Kidney transplant status (principal); N18.5 Chronic kidney disease, stage 5; D84.9 Immunodeficiency, unspecified; Z79.899 Other long term (current) drug therapy

== ENCOUNTER → 2024-07-22 | Outpatient (CLI) | payer MEDICARE, BC ==
[2024-07-22 09:12] LABS: APPEARANCE, URINE CLEAR (CLEAR); BACTERIA, URINE AUTO NEGATIVE (NEGATIVE); BASO # 0.1 10^3/uL (0.0-0.2); BASO % 1.1 % (0.0-1.0); BILIRUBIN, URINE AUTO NEGATIVE (NEGATIVE); BLOOD, URINE BLOOD NEGATIVE (NEGATIVE); COLOR, URINE YELLOW (YELLOW); EOS % 0.2 % (0.0-3.0); GLUCOSE, URINE (UA) AUTO NEGATIVE (NEGATIVE); HEMATOCRIT 31.4 % (42.0-52.0); HEMOGLOBIN 10.8 g/dl (13.5-17.5); KETONE, URINE AUTO NEGATIVE (NEGATIVE); LEUKOCYTE ESTERASE, URINE AUTO NEGATIVE (NEGATIVE); LYMPH # 1.8 10^3/uL (1.5-5.0); LYMPH % 40.1 % (24.0-44.0); MEAN CORPUSCULAR HEMOGLOBIN 32.8 pg (27.0-33.0); MEAN CORPUSCULAR HGB CONC 34.4 g/dl (32.0-36.5); MEAN CORPUSCULAR VOLUME 95.4 fl (80.0-96.0); MONO # 0.6 10^3/uL (0.0-0.8); MONO % 13.8 % (2.0-8.0); MUCUS, URINE SMALL (NEGATIVE); NEUTROPHILS % 43.9 % (36.0-66.0); NITRITE, URINE AUTO NEGATIVE (NEGATIVE); PLATELET COUNT, AUTOMATED 197 10^3/uL (150-450); PROTEIN, URINE AUTO NEGATIVE (NEGATIVE); RBC, URINE AUTO 1 /HPF (0-3); RED BLOOD COUNT 3.29 10^6/uL (4.30-6.10); SPECIFIC GRAVITY URINE AUTO 1.012 (1.002-1.035); SQUAMOUS EPITHELIAL CELL UR AU 0 /HPF (0-6); UROBILINOGEN, URINE AUTO 0.2 mg/dL (0.0-2.0); WBC, URINE AUTO 1 /HPF (0-3); WHITE BLOOD COUNT 4.5 10^3/uL (4.0-10.0)
[2024-07-22 09:24] LABS: BILIRUBIN,TOTAL 0.8 MG/DL (0.3-1.2); CREATININE FOR GFR 1.26 MG/DL (0.70-1.30); GLOMERULAR FILTRATION RATE 59.2 (>42); MAGNESIUM LEVEL 1.9 MG/DL (1.8-2.4); PHOSPHORUS LEVEL 3.9 MG/DL (2.4-5.1); POTASSIUM SERUM 3.4 MMOL/L (3.5-5.1); TOTAL PROTEIN 7.7 G/DL (5.7-8.2)
[2024-07-22 09:31] LABS: TOTAL PROTEIN,RANDOM URINE 24.8 MG/DL (0.0-14.0)
[2024-07-22 09:36] LABS: CREATININE,RANDOM URINE 86.4 MG/DL
[2024-07-24 22:31] LABS: CMV QUANT DNA PCR (PLASMA) Not Detected; CMV SOURCE Whole Blood; log10 CMV QN DNA P1 Not Detected log IU/mL
[2024-07-25 10:52] LABS: BK VIRUS DNA SOURCE Plasma; BKV DNA QUANT PCR PLASMA 116676 copies/mL; log10 BKV DNA PLASMA 5.07 Log cps/mL
== END ==
LOC: M LAB 08:08
PROVIDERS: ATTEND Internal Medicine
DX: Z94.0 Kidney transplant status (principal); N18.5 Chronic kidney disease, stage 5; D84.9 Immunodeficiency, unspecified; Z79.899 Other long term (current) drug therapy; Z85.46 Personal history of malignant neoplasm of prostate

== ENCOUNTER → 2024-07-22 | Outpatient (CLI) | payer MEDICARE, BC | LOC: M LAB 08:06 | PROVIDERS: ATTEND Urology | DX: Z85.46 Personal history of malignant neoplasm of prostate (principal) ==

== ENCOUNTER → 2024-07-29 | Outpatient (CLI) | payer MEDICARE, BC ==
[2024-07-29 08:47] LABS: BASO % 0.8 % (0.0-1.0); EOS % 0.6 % (0.0-3.0); HEMATOCRIT 32.9 % (42.0-52.0); HEMOGLOBIN 11.1 g/dl (13.5-17.5); LYMPH # 1.7 10^3/uL (1.5-5.0); LYMPH % 33.9 % (24.0-44.0); MEAN CORPUSCULAR HEMOGLOBIN 32.2 pg (27.0-33.0); MEAN CORPUSCULAR HGB CONC 33.7 g/dl (32.0-36.5); MEAN CORPUSCULAR VOLUME 95.4 fl (80.0-96.0); MONO # 0.6 10^3/uL (0.0-0.8); MONO % 11.4 % (2.0-8.0); NEUTROPHILS # 2.6 10^3/uL (1.5-8.5); NEUTROPHILS % 51.9 % (36.0-66.0); PLATELET COUNT, AUTOMATED 196 10^3/uL (150-450); RED BLOOD COUNT 3.45 10^6/uL (4.30-6.10); WHITE BLOOD COUNT 5.1 10^3/uL (4.0-10.0)
[2024-07-29 08:55] LABS: APPEARANCE, URINE CLEAR (CLEAR); BACTERIA, URINE AUTO NEGATIVE (NEGATIVE); BILIRUBIN, URINE AUTO NEGATIVE (NEGATIVE); BLOOD, URINE BLOOD NEGATIVE (NEGATIVE); COLOR, URINE YELLOW (YELLOW); GLUCOSE, URINE (UA) AUTO NEGATIVE (NEGATIVE); GRANULAR CAST, URINE AUTO 4 /LPF; KETONE, URINE AUTO NEGATIVE (NEGATIVE); LEUKOCYTE ESTERASE, URINE AUTO NEGATIVE (NEGATIVE); MUCUS, URINE SMALL (NEGATIVE); NITRITE, URINE AUTO NEGATIVE (NEGATIVE); PROTEIN, URINE AUTO 1+ mg/dL (NEGATIVE); RBC, URINE AUTO 1 /HPF (0-3); SPECIFIC GRAVITY URINE AUTO 1.013 (1.002-1.035); SQUAMOUS EPITHELIAL CELL UR AU 0 /HPF (0-6); WBC, URINE AUTO 2 /HPF (0-3)
[2024-07-29 09:13] LABS: TOTAL PROTEIN,RANDOM URINE 35.1 MG/DL (0.0-14.0)
[2024-07-29 09:18] LABS: CREATININE,RANDOM URINE 95.3 MG/DL
[2024-07-29 09:19] LABS: ALBUMIN 3.2 G/DL (3.2-5.2); BILIRUBIN,TOTAL 0.6 MG/DL (0.3-1.2); CALCIUM LEVEL 9.2 MG/DL (8.3-10.6); CREATININE FOR GFR 1.34 MG/DL (0.70-1.30); GLOMERULAR FILTRATION RATE 54.9 (>42); MAGNESIUM LEVEL 1.9 MG/DL (1.8-2.4); POTASSIUM SERUM 3.4 MMOL/L (3.5-5.1); TOTAL PROTEIN 7.3 G/DL (5.7-8.2)
== END ==
LOC: M LAB 08:18
PROVIDERS: ATTEND Internal Medicine
DX: Z94.0 Kidney transplant status (principal); D84.9 Immunodeficiency, unspecified; Z79.899 Other long term (current) drug therapy; N18.5 Chronic kidney disease, stage 5

== ENCOUNTER → 2024-08-05 | Outpatient (CLI) | payer MEDICARE, BC ==
[2024-08-05 09:45] LABS: APPEARANCE, URINE CLEAR (CLEAR); BACTERIA, URINE AUTO NEGATIVE (NEGATIVE); BILIRUBIN, URINE AUTO NEGATIVE (NEGATIVE); BLOOD, URINE BLOOD 1+ (NEGATIVE); COLOR, URINE YELLOW (YELLOW); GLUCOSE, URINE (UA) AUTO NEGATIVE (NEGATIVE); KETONE, URINE AUTO NEGATIVE (NEGATIVE); LEUKOCYTE ESTERASE, URINE AUTO NEGATIVE (NEGATIVE); NITRITE, URINE AUTO NEGATIVE (NEGATIVE); PROTEIN, URINE AUTO NEGATIVE (NEGATIVE); RBC, URINE AUTO 0 /HPF (0-3); SPECIFIC GRAVITY URINE AUTO 1.012 (1.002-1.035); SQUAMOUS EPITHELIAL CELL UR AU 0 /HPF (0-6); UROBILINOGEN, URINE AUTO 0.2 mg/dL (0.0-2.0); WBC, URINE AUTO 2 /HPF (0-3)
[2024-08-05 09:46] LABS: BASO # 0.1 10^3/uL (0.0-0.2); BASO % 1.1 % (0.0-1.0); EOS % 0.7 % (0.0-3.0); HEMOGLOBIN 11.3 g/dl (13.5-17.5); LYMPH # 1.7 10^3/uL (1.5-5.0); LYMPH % 37.7 % (24.0-44.0); MEAN CORPUSCULAR HEMOGLOBIN 32.4 pg (27.0-33.0); MEAN CORPUSCULAR HGB CONC 34.2 g/dl (32.0-36.5); MEAN CORPUSCULAR VOLUME 94.6 fl (80.0-96.0); MONO # 0.6 10^3/uL (0.0-0.8); NEUTROPHILS # 2.2 10^3/uL (1.5-8.5); NEUTROPHILS % 47.8 % (36.0-66.0); PLATELET COUNT, AUTOMATED 196 10^3/uL (150-450); RED BLOOD COUNT 3.49 10^6/uL (4.30-6.10); WHITE BLOOD COUNT 4.6 10^3/uL (4.0-10.0)
[2024-08-05 10:04] LABS: TOTAL PROTEIN,RANDOM URINE 21.9 MG/DL (0.0-14.0)
[2024-08-05 10:09] LABS: BILIRUBIN,TOTAL 0.8 MG/DL (0.3-1.2); CREATININE FOR GFR 1.29 MG/DL (0.70-1.30); CREATININE,RANDOM URINE 98.2 MG/DL; GLOMERULAR FILTRATION RATE 57.5 (>42); MAGNESIUM LEVEL 1.9 MG/DL (1.8-2.4); PHOSPHORUS LEVEL 4.1 MG/DL (2.4-5.1); POTASSIUM SERUM 3.5 MMOL/L (3.5-5.1); TOTAL PROTEIN 7.6 G/DL (5.7-8.2)
== END ==
LOC: M LAB 08:05
PROVIDERS: ATTEND Internal Medicine
DX: N18.5 Chronic kidney disease, stage 5 (principal); D84.9 Immunodeficiency, unspecified; Z94.0 Kidney transplant status; Z79.899 Other long term (current) drug therapy

== ENCOUNTER → 2024-08-11 | Outpatient (CLI) | payer MEDICARE, BC ==
[2024-08-11 09:36] LABS: APPEARANCE, URINE CLEAR (CLEAR); BACTERIA, URINE AUTO NEGATIVE (NEGATIVE); BILIRUBIN, URINE AUTO NEGATIVE (NEGATIVE); BLOOD, URINE BLOOD NEGATIVE (NEGATIVE); COLOR, URINE YELLOW (YELLOW); GLUCOSE, URINE (UA) AUTO NEGATIVE (NEGATIVE); KETONE, URINE AUTO NEGATIVE (NEGATIVE); LEUKOCYTE ESTERASE, URINE AUTO NEGATIVE (NEGATIVE); MUCUS, URINE SMALL (NEGATIVE); NITRITE, URINE AUTO NEGATIVE (NEGATIVE); PROTEIN, URINE AUTO NEGATIVE (NEGATIVE); RBC, URINE AUTO 0 /HPF (0-3); SPECIFIC GRAVITY URINE AUTO 1.013 (1.002-1.035); SQUAMOUS EPITHELIAL CELL UR AU 1 /HPF (0-6); WBC, URINE AUTO 2 /HPF (0-3)
[2024-08-11 09:37] LABS: BASO # 0.1 10^3/uL (0.0-0.2); BASO % 1.1 % (0.0-1.0); EOS # 0.1 10^3/uL (0.0-0.5); EOS % 1.3 % (0.0-3.0); HEMATOCRIT 32.4 % (42.0-52.0); LYMPH # 1.6 10^3/uL (1.5-5.0); MEAN CORPUSCULAR HEMOGLOBIN 32.6 pg (27.0-33.0); MEAN CORPUSCULAR VOLUME 96.1 fl (80.0-96.0); MONO # 0.5 10^3/uL (0.0-0.8); MONO % 11.5 % (2.0-8.0); NEUTROPHILS # 2.4 10^3/uL (1.5-8.5); NEUTROPHILS % 50.8 % (36.0-66.0); PLATELET COUNT, AUTOMATED 189 10^3/uL (150-450); RED BLOOD COUNT 3.37 10^6/uL (4.30-6.10); WHITE BLOOD COUNT 4.7 10^3/uL (4.0-10.0)
[2024-08-11 09:57] LABS: TOTAL PROTEIN,RANDOM URINE 31.3 MG/DL (0.0-14.0)
[2024-08-11 10:02] LABS: CREATININE,RANDOM URINE 96.1 MG/DL
[2024-08-11 10:06] LABS: ALBUMIN 3.2 G/DL (3.2-5.2); BILIRUBIN,TOTAL 0.7 MG/DL (0.3-1.2); CALCIUM LEVEL 9.3 MG/DL (8.3-10.6); CREATININE FOR GFR 1.25 MG/DL (0.70-1.30); GLOMERULAR FILTRATION RATE 59.7 (>42); MAGNESIUM LEVEL 1.9 MG/DL (1.8-2.4); PHOSPHORUS LEVEL 3.4 MG/DL (2.4-5.1); POTASSIUM SERUM 3.5 MMOL/L (3.5-5.1); TOTAL PROTEIN 7.3 G/DL (5.7-8.2)
== END ==
LOC: M LAB 08:15
PROVIDERS: ATTEND Internal Medicine
DX: Z94.0 Kidney transplant status (principal); N18.5 Chronic kidney disease, stage 5; D84.9 Immunodeficiency, unspecified; Z79.899 Other long term (current) drug therapy

== ENCOUNTER → 2024-08-19 | Outpatient (CLI) | payer MEDICARE, BC ==
[2024-08-19 09:05] LABS: APPEARANCE, URINE CLEAR (CLEAR); BACTERIA, URINE AUTO NEGATIVE (NEGATIVE); BILIRUBIN, URINE AUTO NEGATIVE (NEGATIVE); BLOOD, URINE BLOOD 1+ (NEGATIVE); COLOR, URINE YELLOW (YELLOW); GLUCOSE, URINE (UA) AUTO NEGATIVE (NEGATIVE); KETONE, URINE AUTO NEGATIVE (NEGATIVE); LEUKOCYTE ESTERASE, URINE AUTO NEGATIVE (NEGATIVE); NITRITE, URINE AUTO NEGATIVE (NEGATIVE); PROTEIN, URINE AUTO NEGATIVE (NEGATIVE); RBC, URINE AUTO 1 /HPF (0-3); SPECIFIC GRAVITY URINE AUTO 1.014 (1.002-1.035); SQUAMOUS EPITHELIAL CELL UR AU 0 /HPF (0-6); UROBILINOGEN, URINE AUTO 0.2 mg/dL (0.0-2.0); WBC, URINE AUTO 3 /HPF (0-3)
[2024-08-19 09:06] LABS: EOS % 0.5 % (0.0-3.0); HEMATOCRIT 33.3 % (42.0-52.0); HEMOGLOBIN 11.3 g/dl (13.5-17.5); LYMPH # 0.9 10^3/uL (1.5-5.0); LYMPH % 20.2 % (24.0-44.0); MEAN CORPUSCULAR HEMOGLOBIN 32.4 pg (27.0-33.0); MEAN CORPUSCULAR HGB CONC 33.9 g/dl (32.0-36.5); MEAN CORPUSCULAR VOLUME 95.4 fl (80.0-96.0); MONO # 0.5 10^3/uL (0.0-0.8); MONO % 12.9 % (2.0-8.0); NEUTROPHILS # 2.7 10^3/uL (1.5-8.5); NEUTROPHILS % 64.7 % (36.0-66.0); PLATELET COUNT, AUTOMATED 203 10^3/uL (150-450); RED BLOOD COUNT 3.49 10^6/uL (4.30-6.10); WHITE BLOOD COUNT 4.2 10^3/uL (4.0-10.0)
[2024-08-19 09:27] LABS: TOTAL PROTEIN,RANDOM URINE 27.7 MG/DL (0.0-14.0)
[2024-08-19 09:32] LABS: CREATININE,RANDOM URINE 110.9 MG/DL
[2024-08-19 09:33] LABS: ALBUMIN 3.1 G/DL (3.2-5.2); BILIRUBIN,TOTAL 0.7 MG/DL (0.3-1.2); CALCIUM LEVEL 9.2 MG/DL (8.3-10.6); CREATININE FOR GFR 1.3 MG/DL (0.70-1.30); GLOMERULAR FILTRATION RATE 56.9 (>42); MAGNESIUM LEVEL 1.8 MG/DL (1.8-2.4); PHOSPHORUS LEVEL 4.3 MG/DL (2.4-5.1); POTASSIUM SERUM 3.5 MMOL/L (3.5-5.1); TOTAL PROTEIN 7.7 G/DL (5.7-8.2)
== END ==
LOC: M LAB 08:07
PROVIDERS: ATTEND Internal Medicine
DX: Z94.0 Kidney transplant status (principal); N18.5 Chronic kidney disease, stage 5; D84.9 Immunodeficiency, unspecified; Z79.899 Other long term (current) drug therapy

== ENCOUNTER → 2024-08-26 | Outpatient (CLI) | payer MEDICARE, BC ==
[2024-08-26 08:35] LABS: BASO % 0.7 % (0.0-1.0); EOS # 0.1 10^3/uL (0.0-0.5); EOS % 1.1 % (0.0-3.0); HEMATOCRIT 33.8 % (42.0-52.0); HEMOGLOBIN 11.6 g/dl (13.5-17.5); LYMPH # 1.6 10^3/uL (1.5-5.0); LYMPH % 28.5 % (24.0-44.0); MEAN CORPUSCULAR HEMOGLOBIN 32.7 pg (27.0-33.0); MEAN CORPUSCULAR HGB CONC 34.3 g/dl (32.0-36.5); MEAN CORPUSCULAR VOLUME 95.2 fl (80.0-96.0); MONO # 0.6 10^3/uL (0.0-0.8); MONO % 11.5 % (2.0-8.0); NEUTROPHILS # 3.2 10^3/uL (1.5-8.5); NEUTROPHILS % 56.9 % (36.0-66.0); PLATELET COUNT, AUTOMATED 197 10^3/uL (150-450); RED BLOOD COUNT 3.55 10^6/uL (4.30-6.10); WHITE BLOOD COUNT 5.6 10^3/uL (4.0-10.0)
[2024-08-26 08:41] LABS: APPEARANCE, URINE CLEAR (CLEAR); BACTERIA, URINE AUTO NEGATIVE (NEGATIVE); BILIRUBIN, URINE AUTO NEGATIVE (NEGATIVE); BLOOD, URINE BLOOD NEGATIVE (NEGATIVE); COLOR, URINE YELLOW (YELLOW); GLUCOSE, URINE (UA) AUTO NEGATIVE (NEGATIVE); GRANULAR CAST, URINE AUTO 3 /LPF; KETONE, URINE AUTO NEGATIVE (NEGATIVE); LEUKOCYTE ESTERASE, URINE AUTO NEGATIVE (NEGATIVE); MUCUS, URINE SMALL (NEGATIVE); NITRITE, URINE AUTO NEGATIVE (NEGATIVE); PROTEIN, URINE AUTO NEGATIVE (NEGATIVE); RBC, URINE AUTO 1 /HPF (0-3); SPECIFIC GRAVITY URINE AUTO 1.014 (1.002-1.035); SQUAMOUS EPITHELIAL CELL UR AU 0 /HPF (0-6); UROBILINOGEN, URINE AUTO 0.2 mg/dL (0.0-2.0); WBC, URINE AUTO 3 /HPF (0-3)
[2024-08-26 08:51] LABS: TOTAL PROTEIN,RANDOM URINE 33.3 MG/DL (0.0-14.0)
[2024-08-26 08:56] LABS: CREATININE,RANDOM URINE 116.2 MG/DL
[2024-08-26 09:03] LABS: ALBUMIN 3.2 G/DL (3.2-5.2); BILIRUBIN,TOTAL 0.6 MG/DL (0.3-1.2); CALCIUM LEVEL 8.7 MG/DL (8.3-10.6); CREATININE FOR GFR 1.33 MG/DL (0.70-1.30); GLOMERULAR FILTRATION RATE 55.4 (>42); MAGNESIUM LEVEL 1.9 MG/DL (1.8-2.4); PHOSPHORUS LEVEL 4.2 MG/DL (2.4-5.1); POTASSIUM SERUM 3.3 MMOL/L (3.5-5.1); TOTAL PROTEIN 7.2 G/DL (5.7-8.2)
== END ==
LOC: M LAB 08:03
PROVIDERS: ATTEND Internal Medicine
DX: Z94.0 Kidney transplant status (principal)

== ENCOUNTER → 2024-09-02 | Outpatient (CLI) | payer MEDICARE, BC ==
[2024-09-02 10:34] LABS: APPEARANCE, URINE CLEAR (CLEAR); BACTERIA, URINE AUTO NEGATIVE (NEGATIVE); BASO % 0.4 % (0.0-1.0); BILIRUBIN, URINE AUTO NEGATIVE (NEGATIVE); BLOOD, URINE BLOOD NEGATIVE (NEGATIVE); COLOR, URINE YELLOW (YELLOW); GLUCOSE, URINE (UA) AUTO NEGATIVE (NEGATIVE); HEMATOCRIT 33.1 % (42.0-52.0); HEMOGLOBIN 11.6 g/dl (13.5-17.5); KETONE, URINE AUTO NEGATIVE (NEGATIVE); LEUKOCYTE ESTERASE, URINE AUTO NEGATIVE (NEGATIVE); LYMPH # 1.7 10^3/uL (1.5-5.0); LYMPH % 24.9 % (24.0-44.0); MEAN CORPUSCULAR HEMOGLOBIN 32.9 pg (27.0-33.0); MEAN CORPUSCULAR VOLUME 93.8 fl (80.0-96.0); MONO # 0.5 10^3/uL (0.0-0.8); MUCUS, URINE SMALL (NEGATIVE); NEUTROPHILS # 4.6 10^3/uL (1.5-8.5); NEUTROPHILS % 66.3 % (36.0-66.0); NITRITE, URINE AUTO NEGATIVE (NEGATIVE); PLATELET COUNT, AUTOMATED 212 10^3/uL (150-450); PROTEIN, URINE AUTO NEGATIVE (NEGATIVE); RBC, URINE AUTO 2 /HPF (0-3); RED BLOOD COUNT 3.53 10^6/uL (4.30-6.10); SPECIFIC GRAVITY URINE AUTO 1.015 (1.002-1.035); SQUAMOUS EPITHELIAL CELL UR AU 1 /HPF (0-6); UROBILINOGEN, URINE AUTO 0.2 mg/dL (0.0-2.0); WBC, URINE AUTO 1 /HPF (0-3)
[2024-09-02 10:59] LABS: ALBUMIN 3.2 G/DL (3.2-5.2); BILIRUBIN,TOTAL 0.8 MG/DL (0.3-1.2); CALCIUM LEVEL 9.2 MG/DL (8.3-10.6); CREATININE FOR GFR 1.26 MG/DL (0.70-1.30); GLOMERULAR FILTRATION RATE 59.1 (>42); PHOSPHORUS LEVEL 3.3 MG/DL (2.4-5.1); POTASSIUM SERUM 3.9 MMOL/L (3.5-5.1); TOTAL PROTEIN 7.9 G/DL (5.7-8.2)
[2024-09-04 14:21] LABS: CYCLOSPORINE OTHER LAB 92 ng/ml
== END ==
LOC: M LAB 08:07
PROVIDERS: ATTEND Internal Medicine
DX: Z94.0 Kidney transplant status (principal); N18.6 End stage renal disease; D84.9 Immunodeficiency, unspecified; Z79.899 Other long term (current) drug therapy

== ENCOUNTER → 2024-10-28 | Outpatient (CLI) | payer MEDICARE, BC ==
[2024-10-28 09:08] LABS: BASO # 0.1 10^3/uL (0.0-0.2); BASO % 0.9 % (0.0-1.0); EOS # 0.1 10^3/uL (0.0-0.5); EOS % 2.1 % (0.0-3.0); LYMPH # 1.2 10^3/uL (1.5-5.0); LYMPH % 22.9 % (24.0-44.0); MONO # 0.6 10^3/uL (0.0-0.8); MONO % 11.9 % (2.0-8.0); NEUTROPHILS # 3.2 10^3/uL (1.5-8.5); NEUTROPHILS % 60.3 % (36.0-66.0); PLATELET COUNT, AUTOMATED 172 10^3/uL (150-450)
[2024-10-28 09:12] LABS: APPEARANCE, URINE CLEAR (CLEAR); BACTERIA, URINE AUTO NEGATIVE (NEGATIVE); BILIRUBIN, URINE AUTO NEGATIVE (NEGATIVE); BLOOD, URINE BLOOD NEGATIVE (NEGATIVE); GLUCOSE, URINE (UA) AUTO NEGATIVE (NEGATIVE); KETONE, URINE AUTO NEGATIVE (NEGATIVE); LEUKOCYTE ESTERASE, URINE AUTO NEGATIVE (NEGATIVE); MUCUS, URINE SMALL (NEGATIVE); NITRITE, URINE AUTO NEGATIVE (NEGATIVE); PROTEIN, URINE AUTO NEGATIVE (NEGATIVE); RBC, URINE AUTO 1 /HPF (0-3); SPECIFIC GRAVITY URINE AUTO 1.012 (1.002-1.035); SQUAMOUS EPITHELIAL CELL UR AU 0 /HPF (0-6); UROBILINOGEN, URINE AUTO 0.2 mg/dL (0.0-2.0); WBC, URINE AUTO 1 /HPF (0-3)
[2024-10-28 09:27] LABS: TOTAL PROTEIN,RANDOM URINE 34.1 MG/DL (0.0-14.0)
[2024-10-28 09:33] LABS: ALT/SGPT 24.0 U/L (7.0-40); AST/SGOT 23.0 U/L (<34); CALCIUM LEVEL 9.4 MG/DL (8.3-10.6); CARBON DIOXIDE LEVEL 28.0 MMOL/L (20-31); CHLORIDE LEVEL 108.0 MMOL/L (98-107); CREATININE FOR GFR 1.27 MG/DL (0.70-1.30); GLOMERULAR FILTRATION RATE 58.6 (>42); MAGNESIUM LEVEL 1.9 MG/DL (1.8-2.4); PHOSPHORUS LEVEL 3.7 MG/DL (2.4-5.1); POTASSIUM SERUM 4.2 MMOL/L (3.5-5.1); SODIUM LEVEL 145.0 MMOL/L (136-145)
[2024-10-30 21:50] LABS: BKV DNA QUANT PCR PLASMA 216000 IU/mL; log10 BKV DNA PLASMA 5.33 Log IU/mL
== END ==
LOC: M LAB 08:14
PROVIDERS: ATTEND Internal Medicine
DX: N18.5 Chronic kidney disease, stage 5 (principal); D84.9 Immunodeficiency, unspecified; Z79.899 Other long term (current) drug therapy; Z94.0 Kidney transplant status

== ENCOUNTER → 2024-11-11 | Outpatient (CLI) | payer MEDICARE, BC ==
[2024-11-11 09:39] LABS: BASO # 0.0 10^3/uL (0.0-0.2); BASO % 0.6 % (0.0-1.0); EOS # 0.1 10^3/uL (0.0-0.5); EOS % 0.9 % (0.0-3.0); LYMPH # 1.6 10^3/uL (1.5-5.0); LYMPH % 30.5 % (24.0-44.0); MONO # 0.5 10^3/uL (0.0-0.8); MONO % 10.0 % (2.0-8.0); NEUTROPHILS # 3.0 10^3/uL (1.5-8.5); NEUTROPHILS % 56.9 % (36.0-66.0); PLATELET COUNT, AUTOMATED 197 10^3/uL (150-450)
[2024-11-11 09:42] LABS: APPEARANCE, URINE CLEAR (CLEAR); BACTERIA, URINE AUTO NEGATIVE (NEGATIVE); BILIRUBIN, URINE AUTO NEGATIVE (NEGATIVE); BLOOD, URINE BLOOD NEGATIVE (NEGATIVE); GLUCOSE, URINE (UA) AUTO NEGATIVE (NEGATIVE); KETONE, URINE AUTO NEGATIVE (NEGATIVE); LEUKOCYTE ESTERASE, URINE AUTO NEGATIVE (NEGATIVE); MUCUS, URINE SMALL (NEGATIVE); NITRITE, URINE AUTO NEGATIVE (NEGATIVE); PROTEIN, URINE AUTO NEGATIVE (NEGATIVE); RBC, URINE AUTO 1 /HPF (0-3); SPECIFIC GRAVITY URINE AUTO 1.015 (1.002-1.035); SQUAMOUS EPITHELIAL CELL UR AU 0 /HPF (0-6); UROBILINOGEN, URINE AUTO 2.0 mg/dL (0.0-2.0); WBC, URINE AUTO 3 /HPF (0-3)
[2024-11-11 09:59] LABS: TOTAL PROTEIN,RANDOM URINE 38.2 MG/DL (0.0-14.0)
[2024-11-11 10:05] LABS: ALT/SGPT 19.0 U/L (7.0-40); AST/SGOT 23.0 U/L (<34); CALCIUM LEVEL 9.4 MG/DL (8.3-10.6); CARBON DIOXIDE LEVEL 29.0 MMOL/L (20-31); CHLORIDE LEVEL 103.0 MMOL/L (98-107); CREATININE FOR GFR 1.48 MG/DL (0.70-1.30); GLOMERULAR FILTRATION RATE 48.7 (>42); MAGNESIUM LEVEL 2.0 MG/DL (1.8-2.4); PHOSPHORUS LEVEL 4.3 MG/DL (2.4-5.1); POTASSIUM SERUM 3.7 MMOL/L (3.5-5.1); SODIUM LEVEL 143.0 MMOL/L (136-145)
== END ==
LOC: M LAB 08:15
PROVIDERS: ATTEND Internal Medicine
DX: Z94.0 Kidney transplant status (principal); Z79.899 Other long term (current) drug therapy; D84.9 Immunodeficiency, unspecified; N18.5 Chronic kidney disease, stage 5

== ENCOUNTER → 2024-11-25 | Outpatient (CLI) | payer MEDICARE, BC ==
[2024-11-25 08:51] LABS: APPEARANCE, URINE CLEAR (CLEAR); BACTERIA, URINE AUTO 1+ (NEGATIVE); BILIRUBIN, URINE AUTO NEGATIVE (NEGATIVE); BLOOD, URINE BLOOD 1+ (NEGATIVE); GLUCOSE, URINE (UA) AUTO NEGATIVE (NEGATIVE); KETONE, URINE AUTO NEGATIVE (NEGATIVE); LEUKOCYTE ESTERASE, URINE AUTO NEGATIVE (NEGATIVE); MUCUS, URINE SMALL (NEGATIVE); NITRITE, URINE AUTO NEGATIVE (NEGATIVE); PROTEIN, URINE AUTO NEGATIVE (NEGATIVE); RBC, URINE AUTO 1 /HPF (0-3); SPECIFIC GRAVITY URINE AUTO 1.015 (1.002-1.035); SQUAMOUS EPITHELIAL CELL UR AU 0 /HPF (0-6); UROBILINOGEN, URINE AUTO 0.2 mg/dL (0.0-2.0); WBC, URINE AUTO 2 /HPF (0-3)
[2024-11-25 09:19] LABS: BASO # 0.0 10^3/uL (0.0-0.2); BASO % 0.8 % (0.0-1.0); EOS # 0.0 10^3/uL (0.0-0.5); EOS % 0.8 % (0.0-3.0); LYMPH # 1.1 10^3/uL (1.5-5.0); LYMPH % 20.3 % (24.0-44.0); MONO # 0.6 10^3/uL (0.0-0.8); MONO % 11.2 % (2.0-8.0); NEUTROPHILS # 3.4 10^3/uL (1.5-8.5); NEUTROPHILS % 65.9 % (36.0-66.0); PLATELET COUNT, AUTOMATED 205 10^3/uL (150-450)
[2024-11-25 09:25] LABS: TOTAL PROTEIN,RANDOM URINE 40.8 MG/DL (0.0-14.0)
[2024-11-25 09:33] LABS: ALT/SGPT 18.0 U/L (7.0-40); AST/SGOT 20.0 U/L (<34); CALCIUM LEVEL 9.1 MG/DL (8.3-10.6); CARBON DIOXIDE LEVEL 26.0 MMOL/L (20-31); CHLORIDE LEVEL 102.0 MMOL/L (98-107); CREATININE FOR GFR 1.35 MG/DL (0.70-1.30); GLOMERULAR FILTRATION RATE 54.4 (>42); MAGNESIUM LEVEL 2.0 MG/DL (1.8-2.4); PHOSPHORUS LEVEL 4.2 MG/DL (2.4-5.1); POTASSIUM SERUM 3.5 MMOL/L (3.5-5.1); SODIUM LEVEL 141.0 MMOL/L (136-145)
== END ==
LOC: M LAB 08:12
PROVIDERS: ATTEND Internal Medicine
DX: N18.6 End stage renal disease (principal); D84.9 Immunodeficiency, unspecified; Z94.0 Kidney transplant status; Z79.899 Other long term (current) drug therapy

== ENCOUNTER → 2024-12-10 | Outpatient (CLI) | payer MEDICARE, BC ==
[2024-12-10 12:21] LABS: APPEARANCE, URINE CLEAR (CLEAR); BACTERIA, URINE AUTO NEGATIVE (NEGATIVE); BILIRUBIN, URINE AUTO NEGATIVE (NEGATIVE); BLOOD, URINE BLOOD 1+ (NEGATIVE); GLUCOSE, URINE (UA) AUTO NEGATIVE (NEGATIVE); KETONE, URINE AUTO NEGATIVE (NEGATIVE); LEUKOCYTE ESTERASE, URINE AUTO NEGATIVE (NEGATIVE); NITRITE, URINE AUTO NEGATIVE (NEGATIVE); PROTEIN, URINE AUTO NEGATIVE (NEGATIVE); RBC, URINE AUTO 1 /HPF (0-3); SPECIFIC GRAVITY URINE AUTO 1.016 (1.002-1.035); SQUAMOUS EPITHELIAL CELL UR AU 0 /HPF (0-6); UROBILINOGEN, URINE AUTO 0.2 mg/dL (0.0-2.0); WBC, URINE AUTO 2 /HPF (0-3)
[2024-12-10 12:32] LABS: BASO # 0.1 10^3/uL (0.0-0.2); BASO % 1.2 % (0.0-1.0); EOS # 0.0 10^3/uL (0.0-0.5); EOS % 0.7 % (0.0-3.0); LYMPH # 1.3 10^3/uL (1.5-5.0); LYMPH % 21.6 % (24.0-44.0); MONO # 0.7 10^3/uL (0.0-0.8); MONO % 12.3 % (2.0-8.0); NEUTROPHILS # 3.7 10^3/uL (1.5-8.5); NEUTROPHILS % 62.7 % (36.0-66.0); PLATELET COUNT, AUTOMATED 218 10^3/uL (150-450)
[2024-12-10 12:39] LABS: ALT/SGPT 17.0 U/L (7.0-40); AST/SGOT 19.0 U/L (<34); CALCIUM LEVEL 9.2 MG/DL (8.3-10.6); CARBON DIOXIDE LEVEL 29.0 MMOL/L (20-31); CHLORIDE LEVEL 104.0 MMOL/L (98-107); CREATININE FOR GFR 1.38 MG/DL (0.70-1.30); GLOMERULAR FILTRATION RATE 53.0 (>42); MAGNESIUM LEVEL 1.8 MG/DL (1.8-2.4); PHOSPHORUS LEVEL 3.7 MG/DL (2.4-5.1); POTASSIUM SERUM 3.5 MMOL/L (3.5-5.1); SODIUM LEVEL 143.0 MMOL/L (136-145)
[2024-12-10 12:53] LABS: TOTAL PROTEIN,RANDOM URINE 41.8 MG/DL (0.0-14.0)
[2024-12-13 13:06] LABS: BKV DNA QUANT PCR PLASMA 38500 IU/mL; log10 BKV DNA PLASMA 4.59 Log IU/mL
== END ==
LOC: M WUC 08:07
PROVIDERS: ATTEND Internal Medicine
DX: Z94.0 Kidney transplant status (principal); N18.5 Chronic kidney disease, stage 5; D84.9 Immunodeficiency, unspecified; Z79.899 Other long term (current) drug therapy

== ENCOUNTER → 2024-12-30 | Outpatient (CLI) | payer MEDICARE, BC ==
[2024-12-30 09:04] LABS: BASO # 0.1 10^3/uL (0.0-0.2); BASO % 1.2 % (0.0-1.0); EOS # 0.1 10^3/uL (0.0-0.5); EOS % 1.0 % (0.0-3.0); LYMPH # 1.1 10^3/uL (1.5-5.0); LYMPH % 23.3 % (24.0-44.0); MONO # 0.7 10^3/uL (0.0-0.8); MONO % 13.4 % (2.0-8.0); NEUTROPHILS # 2.9 10^3/uL (1.5-8.5); NEUTROPHILS % 59.7 % (36.0-66.0); PLATELET COUNT, AUTOMATED 209 10^3/uL (150-450)
[2024-12-30 09:14] LABS: APPEARANCE, URINE CLEAR (CLEAR); BACTERIA, URINE AUTO NEGATIVE (NEGATIVE); BILIRUBIN, URINE AUTO NEGATIVE (NEGATIVE); BLOOD, URINE BLOOD NEGATIVE (NEGATIVE); GLUCOSE, URINE (UA) AUTO NEGATIVE (NEGATIVE); KETONE, URINE AUTO NEGATIVE (NEGATIVE); LEUKOCYTE ESTERASE, URINE AUTO NEGATIVE (NEGATIVE); NITRITE, URINE AUTO NEGATIVE (NEGATIVE); PROTEIN, URINE AUTO NEGATIVE (NEGATIVE); RBC, URINE AUTO 1 /HPF (0-3); SPECIFIC GRAVITY URINE AUTO 1.015 (1.002-1.035); SQUAMOUS EPITHELIAL CELL UR AU 0 /HPF (0-6); UROBILINOGEN, URINE AUTO 2.0 mg/dL (0.0-2.0); WBC, URINE AUTO 2 /HPF (0-3)
[2024-12-30 09:31] LABS: ALT/SGPT 20.0 U/L (7.0-40); AST/SGOT 21.0 U/L (<34); CALCIUM LEVEL 9.5 MG/DL (8.3-10.6); CARBON DIOXIDE LEVEL 28.0 MMOL/L (20-31); CHLORIDE LEVEL 105.0 MMOL/L (98-107); CREATININE FOR GFR 1.27 MG/DL (0.70-1.30); GLOMERULAR FILTRATION RATE 58.6 (>42); MAGNESIUM LEVEL 2.1 MG/DL (1.8-2.4); PHOSPHORUS LEVEL 4.0 MG/DL (2.4-5.1); POTASSIUM SERUM 3.8 MMOL/L (3.5-5.1); SODIUM LEVEL 144.0 MMOL/L (136-145)
[2024-12-30 09:35] LABS: TOTAL PROTEIN,RANDOM URINE 36.5 MG/DL (0.0-14.0)
[2025-01-02 16:52] LABS: BKV DNA QUANT PCR PLASMA 22400 IU/mL; log10 BKV DNA PLASMA 4.35 Log IU/mL
== END ==
LOC: M LAB 08:09
PROVIDERS: ATTEND Internal Medicine
DX: Z79.899 Other long term (current) drug therapy (principal); D84.9 Immunodeficiency, unspecified; N18.5 Chronic kidney disease, stage 5

== ENCOUNTER → 2025-01-13 | Outpatient (CLI) | payer MEDICARE, BC ==
[2025-01-13 08:53] LABS: APPEARANCE, URINE CLEAR (CLEAR); BACTERIA, URINE AUTO NEGATIVE (NEGATIVE); BILIRUBIN, URINE AUTO NEGATIVE (NEGATIVE); BLOOD, URINE BLOOD NEGATIVE (NEGATIVE); GLUCOSE, URINE (UA) AUTO NEGATIVE (NEGATIVE); GRANULAR CAST, URINE AUTO 3 /LPF; KETONE, URINE AUTO NEGATIVE (NEGATIVE); LEUKOCYTE ESTERASE, URINE AUTO NEGATIVE (NEGATIVE); MUCUS, URINE SMALL (NEGATIVE); NITRITE, URINE AUTO NEGATIVE (NEGATIVE); PROTEIN, URINE AUTO 1+ mg/dL (NEGATIVE); RBC, URINE AUTO 1 /HPF (0-3); SPECIFIC GRAVITY URINE AUTO 1.016 (1.002-1.035); SQUAMOUS EPITHELIAL CELL UR AU 0 /HPF (0-6); UROBILINOGEN, URINE AUTO 2.0 mg/dL (0.0-2.0); WBC, URINE AUTO 2 /HPF (0-3)
[2025-01-13 08:59] LABS: BASO # 0.1 10^3/uL (0.0-0.2); BASO % 1.1 % (0.0-1.0); EOS # 0.1 10^3/uL (0.0-0.5); EOS % 1.5 % (0.0-3.0); LYMPH # 1.4 10^3/uL (1.5-5.0); LYMPH % 30.3 % (24.0-44.0); MONO # 0.5 10^3/uL (0.0-0.8); MONO % 10.9 % (2.0-8.0); NEUTROPHILS # 2.6 10^3/uL (1.5-8.5); NEUTROPHILS % 54.9 % (36.0-66.0); PLATELET COUNT, AUTOMATED 187 10^3/uL (150-450)
[2025-01-13 09:21] LABS: TOTAL PROTEIN,RANDOM URINE 45.7 MG/DL (0.0-14.0)
[2025-01-13 09:27] LABS: ALT/SGPT 18.0 U/L (7.0-40); AST/SGOT 21.0 U/L (<34); CALCIUM LEVEL 9.2 MG/DL (8.3-10.6); CARBON DIOXIDE LEVEL 28.0 MMOL/L (20-31); CHLORIDE LEVEL 104.0 MMOL/L (98-107); CREATININE FOR GFR 1.48 MG/DL (0.70-1.30); GLOMERULAR FILTRATION RATE 48.7 (>42); MAGNESIUM LEVEL 2.0 MG/DL (1.8-2.4); PHOSPHORUS LEVEL 4.2 MG/DL (2.4-5.1); POTASSIUM SERUM 3.6 MMOL/L (3.5-5.1); SODIUM LEVEL 142.0 MMOL/L (136-145)
== END ==
LOC: M LAB 08:01
PROVIDERS: ATTEND Internal Medicine
DX: Z94.0 Kidney transplant status (principal)

== ENCOUNTER → 2025-01-15 | Outpatient (CLI) | payer MEDICARE, BC ==
[2025-01-15 14:16] LABS: PLATELET COUNT, AUTOMATED 224 10^3/uL (150-450)
[2025-01-15 14:27] LABS: INR 0.95
== END ==
LOC: M WUC 11:01
PROVIDERS: ATTEND Physician Assistant Surgical
DX: Z01.818 Encounter for other preprocedural examination (principal); Z79.01 Long term (current) use of anticoagulants

== ENCOUNTER → 2025-01-27 | Outpatient (CLI) | payer MEDICARE, BC ==
[2025-01-27 08:46] LABS: APPEARANCE, URINE CLEAR (CLEAR); BACTERIA, URINE AUTO NEGATIVE (NEGATIVE); BILIRUBIN, URINE AUTO NEGATIVE (NEGATIVE); BLOOD, URINE BLOOD NEGATIVE (NEGATIVE); GLUCOSE, URINE (UA) AUTO NEGATIVE (NEGATIVE); KETONE, URINE AUTO NEGATIVE (NEGATIVE); LEUKOCYTE ESTERASE, URINE AUTO NEGATIVE (NEGATIVE); NITRITE, URINE AUTO NEGATIVE (NEGATIVE); PROTEIN, URINE AUTO 1+ mg/dL (NEGATIVE); RBC, URINE AUTO 0 /HPF (0-3); SPECIFIC GRAVITY URINE AUTO 1.016 (1.002-1.035); SQUAMOUS EPITHELIAL CELL UR AU 0 /HPF (0-6); UROBILINOGEN, URINE AUTO 2.0 mg/dL (0.0-2.0); WBC, URINE AUTO 2 /HPF (0-3)
[2025-01-27 08:48] LABS: BASO # 0.0 10^3/uL (0.0-0.2); BASO % 0.5 % (0.0-1.0); EOS # 0.1 10^3/uL (0.0-0.5); EOS % 1.4 % (0.0-3.0); LYMPH # 1.4 10^3/uL (1.5-5.0); LYMPH % 22.5 % (24.0-44.0); MONO # 0.7 10^3/uL (0.0-0.8); MONO % 10.7 % (2.0-8.0); NEUTROPHILS # 4.0 10^3/uL (1.5-8.5); NEUTROPHILS % 63.5 % (36.0-66.0); PLATELET COUNT, AUTOMATED 195 10^3/uL (150-450)
[2025-01-27 09:09] LABS: ALT/SGPT 18.0 U/L (7.0-40); AST/SGOT 18.0 U/L (<34); CALCIUM LEVEL 9.1 MG/DL (8.3-10.6); CARBON DIOXIDE LEVEL 28.0 MMOL/L (20-31); CHLORIDE LEVEL 104.0 MMOL/L (98-107); CREATININE FOR GFR 1.29 MG/DL (0.70-1.30); GLOMERULAR FILTRATION RATE 57.5 (>42); MAGNESIUM LEVEL 2.0 MG/DL (1.8-2.4); POTASSIUM SERUM 3.7 MMOL/L (3.5-5.1); SODIUM LEVEL 142.0 MMOL/L (136-145)
[2025-01-29 14:17] LABS: PROTEIN CREATININE RATIO 345 mg/g creat (25-148); T PROTEIN CREATININE RATIO 0.345 (0.025-0.148); UPEP CREATININE 119 mg/dL (20-320); UPEP TOTAL PROTEIN 41 mg/dL (5-25)
== END ==
LOC: M LAB 08:03
PROVIDERS: ATTEND Internal Medicine
DX: Z94.0 Kidney transplant status (principal); N18.5 Chronic kidney disease, stage 5; D84.9 Immunodeficiency, unspecified; Z79.899 Other long term (current) drug therapy

== ENCOUNTER → 2025-02-10 | Outpatient (CLI) | payer MEDICARE, BC ==
[2025-02-10 08:35] LABS: APPEARANCE, URINE CLEAR (CLEAR); BACTERIA, URINE AUTO NEGATIVE (NEGATIVE); BILIRUBIN, URINE AUTO NEGATIVE (NEGATIVE); BLOOD, URINE BLOOD NEGATIVE (NEGATIVE); GLUCOSE, URINE (UA) AUTO NEGATIVE (NEGATIVE); GRANULAR CAST, URINE AUTO 1 /LPF; KETONE, URINE AUTO NEGATIVE (NEGATIVE); LEUKOCYTE ESTERASE, URINE AUTO NEGATIVE (NEGATIVE); MUCUS, URINE SMALL (NEGATIVE); NITRITE, URINE AUTO NEGATIVE (NEGATIVE); PROTEIN, URINE AUTO NEGATIVE (NEGATIVE); RBC, URINE AUTO 1 /HPF (0-3); SPECIFIC GRAVITY URINE AUTO 1.015 (1.002-1.035); SQUAMOUS EPITHELIAL CELL UR AU 0 /HPF (0-6); UROBILINOGEN, URINE AUTO 2.0 mg/dL (0.0-2.0); WBC, URINE AUTO 1 /HPF (0-3)
[2025-02-10 08:39] LABS: BASO # 0.0 10^3/uL (0.0-0.2); BASO % 0.7 % (0.0-1.0); EOS # 0.1 10^3/uL (0.0-0.5); EOS % 1.8 % (0.0-3.0); LYMPH # 1.4 10^3/uL (1.5-5.0); LYMPH % 26.0 % (24.0-44.0); MONO # 0.7 10^3/uL (0.0-0.8); MONO % 12.0 % (2.0-8.0); NEUTROPHILS # 3.2 10^3/uL (1.5-8.5); NEUTROPHILS % 58.8 % (36.0-66.0); PLATELET COUNT, AUTOMATED 194 10^3/uL (150-450)
[2025-02-10 08:55] LABS: TOTAL PROTEIN,RANDOM URINE 38.4 MG/DL (0.0-14.0)
[2025-02-10 09:01] LABS: ALT/SGPT 16.0 U/L (7.0-40); AST/SGOT 18.0 U/L (<34); CALCIUM LEVEL 9.3 MG/DL (8.3-10.6); CARBON DIOXIDE LEVEL 28.0 MMOL/L (20-31); CHLORIDE LEVEL 105.0 MMOL/L (98-107); CREATININE FOR GFR 1.39 MG/DL (0.70-1.30); GLOMERULAR FILTRATION RATE 52.5 (>42); MAGNESIUM LEVEL 2.1 MG/DL (1.8-2.4); PHOSPHORUS LEVEL 4.0 MG/DL (2.4-5.1); POTASSIUM SERUM 4.0 MMOL/L (3.5-5.1); SODIUM LEVEL 143.0 MMOL/L (136-145)
== END ==
LOC: M LAB 08:04
PROVIDERS: ATTEND Internal Medicine
DX: Z94.0 Kidney transplant status (principal)

== ENCOUNTER → 2025-03-01 | Outpatient (CLI) | payer MEDICARE, BC ==
[2025-03-01 13:33] LABS: BASO # 0.1 10^3/uL (0.0-0.2); BASO % 0.9 % (0.0-1.0); EOS # 0.1 10^3/uL (0.0-0.5); EOS % 1.3 % (0.0-3.0); LYMPH # 1.9 10^3/uL (1.5-5.0); LYMPH % 28.3 % (24.0-44.0); MONO # 0.7 10^3/uL (0.0-0.8); MONO % 10.7 % (2.0-8.0); NEUTROPHILS # 3.9 10^3/uL (1.5-8.5); NEUTROPHILS % 58.1 % (36.0-66.0); PLATELET COUNT, AUTOMATED 256 10^3/uL (150-450)
[2025-03-01 13:37] LABS: ALT/SGPT 20.0 U/L (7.0-40); AST/SGOT 17.0 U/L (<34); CALCIUM LEVEL 9.8 MG/DL (8.3-10.6); CARBON DIOXIDE LEVEL 31.0 MMOL/L (20-31); CHLORIDE LEVEL 103.0 MMOL/L (98-107); CREATININE FOR GFR 1.43 MG/DL (0.70-1.30); GLOMERULAR FILTRATION RATE 50.8 (>42); MAGNESIUM LEVEL 2.0 MG/DL (1.8-2.4); PHOSPHORUS LEVEL 4.4 MG/DL (2.4-5.1); POTASSIUM SERUM 4.0 MMOL/L (3.5-5.1); SODIUM LEVEL 143.0 MMOL/L (136-145)
[2025-03-01 13:39] LABS: APPEARANCE, URINE CLEAR (CLEAR); BACTERIA, URINE AUTO NEGATIVE (NEGATIVE); BILIRUBIN, URINE AUTO NEGATIVE (NEGATIVE); BLOOD, URINE BLOOD NEGATIVE (NEGATIVE); GLUCOSE, URINE (UA) AUTO NEGATIVE (NEGATIVE); KETONE, URINE AUTO NEGATIVE (NEGATIVE); LEUKOCYTE ESTERASE, URINE AUTO NEGATIVE (NEGATIVE); MUCUS, URINE SMALL (NEGATIVE); NITRITE, URINE AUTO NEGATIVE (NEGATIVE); PROTEIN, URINE AUTO NEGATIVE (NEGATIVE); RBC, URINE AUTO 1 /HPF (0-3); SPECIFIC GRAVITY URINE AUTO 1.016 (1.002-1.035); SQUAMOUS EPITHELIAL CELL UR AU 0 /HPF (0-6); UROBILINOGEN, URINE AUTO 0.2 mg/dL (0.0-2.0); WBC, URINE AUTO 1 /HPF (0-3)
[2025-03-01 13:49] LABS: TOTAL PROTEIN,RANDOM URINE 30.6 MG/DL (0.0-14.0)
[2025-03-04 17:12] LABS: BKV DNA QUANT PCR PLASMA 3370 IU/mL; log10 BKV DNA PLASMA 3.53 Log IU/mL
== END ==
LOC: M WUC 08:08
PROVIDERS: ATTEND Internal Medicine
DX: Z94.0 Kidney transplant status (principal); N18.5 Chronic kidney disease, stage 5; Z79.899 Other long term (current) drug therapy

== ENCOUNTER → 2025-03-24 | Outpatient (CLI) | payer MEDICARE, BC ==
[2025-03-24 09:40] LABS: BASO # 0.1 10^3/uL (0.0-0.2); BASO % 1.0 % (0.0-1.0); EOS # 0.1 10^3/uL (0.0-0.5); EOS % 2.3 % (0.0-3.0); LYMPH # 1.3 10^3/uL (1.5-5.0); LYMPH % 22.1 % (24.0-44.0); MONO # 0.7 10^3/uL (0.0-0.8); MONO % 12.1 % (2.0-8.0); NEUTROPHILS # 3.7 10^3/uL (1.5-8.5); NEUTROPHILS % 61.8 % (36.0-66.0); PLATELET COUNT, AUTOMATED 186 10^3/uL (150-450)
[2025-03-24 09:41] LABS: APPEARANCE, URINE CLEAR (CLEAR); BACTERIA, URINE AUTO NEGATIVE (NEGATIVE); BILIRUBIN, URINE AUTO NEGATIVE (NEGATIVE); BLOOD, URINE BLOOD NEGATIVE (NEGATIVE); GLUCOSE, URINE (UA) AUTO NEGATIVE (NEGATIVE); KETONE, URINE AUTO NEGATIVE (NEGATIVE); LEUKOCYTE ESTERASE, URINE AUTO NEGATIVE (NEGATIVE); MUCUS, URINE SMALL (NEGATIVE); NITRITE, URINE AUTO NEGATIVE (NEGATIVE); PROTEIN, URINE AUTO NEGATIVE (NEGATIVE); RBC, URINE AUTO 0 /HPF (0-3); SPECIFIC GRAVITY URINE AUTO 1.016 (1.002-1.035); SQUAMOUS EPITHELIAL CELL UR AU 0 /HPF (0-6); UROBILINOGEN, URINE AUTO 2.0 mg/dL (0.0-2.0); WBC, URINE AUTO 1 /HPF (0-3)
[2025-03-24 09:59] LABS: TOTAL PROTEIN,RANDOM URINE 39.3 MG/DL (0.0-14.0)
[2025-03-24 10:05] LABS: ALT/SGPT 20.0 U/L (7.0-40); AST/SGOT 16.0 U/L (<34); CALCIUM LEVEL 9.0 MG/DL (8.3-10.6); CARBON DIOXIDE LEVEL 28.0 MMOL/L (20-31); CHLORIDE LEVEL 104.0 MMOL/L (98-107); CREATININE FOR GFR 1.33 MG/DL (0.70-1.30); GLOMERULAR FILTRATION RATE 55.4 (>42); MAGNESIUM LEVEL 2.0 MG/DL (1.8-2.4); PHOSPHORUS LEVEL 3.7 MG/DL (2.4-5.1); POTASSIUM SERUM 4.1 MMOL/L (3.5-5.1); SODIUM LEVEL 143.0 MMOL/L (136-145)
== END ==
LOC: M LAB 08:11
PROVIDERS: ATTEND Internal Medicine
DX: N18.5 Chronic kidney disease, stage 5 (principal); Z94.0 Kidney transplant status; D84.9 Immunodeficiency, unspecified; Z79.899 Other long term (current) drug therapy

== ENCOUNTER → 2025-04-14 | Outpatient (CLI) | payer MEDICARE, BC ==
[2025-04-14 09:00] LABS: APPEARANCE, URINE CLEAR (CLEAR); BACTERIA, URINE AUTO NEGATIVE (NEGATIVE); BILIRUBIN, URINE AUTO NEGATIVE (NEGATIVE); BLOOD, URINE BLOOD NEGATIVE (NEGATIVE); GLUCOSE, URINE (UA) AUTO NEGATIVE (NEGATIVE); KETONE, URINE AUTO NEGATIVE (NEGATIVE); LEUKOCYTE ESTERASE, URINE AUTO NEGATIVE (NEGATIVE); MUCUS, URINE SMALL (NEGATIVE); NITRITE, URINE AUTO NEGATIVE (NEGATIVE); PROTEIN, URINE AUTO NEGATIVE (NEGATIVE); RBC, URINE AUTO 1 /HPF (0-3); SPECIFIC GRAVITY URINE AUTO 1.017 (1.002-1.035); SQUAMOUS EPITHELIAL CELL UR AU 0 /HPF (0-6); UROBILINOGEN, URINE AUTO 0.2 mg/dL (0.0-2.0); WBC, URINE AUTO 1 /HPF (0-3)
[2025-04-14 09:15] LABS: BASO # 0.1 10^3/uL (0.0-0.2); BASO % 1.0 % (0.0-1.0); EOS # 0.1 10^3/uL (0.0-0.5); EOS % 1.6 % (0.0-3.0); LYMPH # 1.6 10^3/uL (1.5-5.0); LYMPH % 25.3 % (24.0-44.0); MONO # 0.7 10^3/uL (0.0-0.8); MONO % 11.7 % (2.0-8.0); NEUTROPHILS # 3.7 10^3/uL (1.5-8.5); NEUTROPHILS % 59.6 % (36.0-66.0); PLATELET COUNT, AUTOMATED 204 10^3/uL (150-450)
[2025-04-14 09:35] LABS: ALT/SGPT 21.0 U/L (7.0-40); AST/SGOT 18.0 U/L (<34); CALCIUM LEVEL 9.5 MG/DL (8.3-10.6); CARBON DIOXIDE LEVEL 30.0 MMOL/L (20-31); CHLORIDE LEVEL 104.0 MMOL/L (98-107); CREATININE FOR GFR 1.27 MG/DL (0.70-1.30); GLOMERULAR FILTRATION RATE 58.6 (>42); MAGNESIUM LEVEL 2.2 MG/DL (1.8-2.4); PHOSPHORUS LEVEL 3.9 MG/DL (2.4-5.1); POTASSIUM SERUM 3.8 MMOL/L (3.5-5.1); SODIUM LEVEL 143.0 MMOL/L (136-145)
[2025-04-14 14:10] LABS: TOTAL PROTEIN,RANDOM URINE 37.9 MG/DL (0.0-14.0)
[2025-04-17 17:07] LABS: BKV DNA QUANT PCR PLASMA 4600 IU/mL; log10 BKV DNA PLASMA 3.66 Log IU/mL
== END ==
LOC: M LAB 08:05
PROVIDERS: ATTEND Internal Medicine
DX: Z94.0 Kidney transplant status (principal); Z79.899 Other long term (current) drug therapy

== ENCOUNTER → 2025-04-16 | Outpatient (CLI) | payer MEDICARE, BC ==
[2025-04-16 12:05] LABS: PLATELET COUNT, AUTOMATED 198 10^3/uL (150-450)
[2025-04-16 12:10] LABS: ALT/SGPT 20.0 U/L (7.0-40); AST/SGOT 18.0 U/L (<34); CALCIUM LEVEL 9.4 MG/DL (8.3-10.6); CARBON DIOXIDE LEVEL 30.0 MMOL/L (20-31); CHLORIDE LEVEL 105.0 MMOL/L (98-107); CHOLESTEROL LEVEL 280.0 MG/DL (<200); CHOLESTEROL RISK RATIO 4.92 (<5); CREATININE FOR GFR 1.21 MG/DL (0.70-1.30); GLOMERULAR FILTRATION RATE 62.1 (>42); LDL CHOLESTEROL 187.5 MG/DL (<100); NON-HDL-C 223.1 MG/DL; POTASSIUM SERUM 4.1 MMOL/L (3.5-5.1); SODIUM LEVEL 143.0 MMOL/L (136-145); TRIGLYCERIDES LEVEL 178.0 MG/DL (<150)
[2025-04-16 12:16] LABS: ESTIMATED AVERAGE GLUCOSE 134.0 MG/DL (60-110)
== END ==
LOC: M WUC 08:07
PROVIDERS: ATTEND Family Medicine
DX: E78.2 Mixed hyperlipidemia (principal); E11.22 Type 2 diabetes mellitus with diabetic chronic kidney disease; F32.9 Major depressive disorder, single episode, unspecified; Z94.0 Kidney transplant status